=== PATIENT | male | born 1960 | race Caucasian/White ===

== ENCOUNTER 2021-09-26 15:26 | Inpatient (IN) | payer BC, OTHER ==
[~2021-09-26] VITALS: Ht 178 cm; Wt 89.3 kg
[2021-09-26] MEDS ORDERED: Neutra Phos packet PO PRN (16:50)
[2021-09-26] MEDS ORDERED: LIDOcaine 2% 10ml TOPICAL JELLY (Urojet) TP ONE (16:50)
[2021-09-26] MEDS ORDERED: sodium phosphate inj. 15 MMOL in dextrose 5%-water 250 ML IV PRN (16:50)
[2021-09-26] MEDS ORDERED: magnesium Cl slow-release 64mg tablet PO PRN (16:50)
[2021-09-26] MEDS ORDERED: acetaminophen 325mg tablet PO PRN (16:50)
[2021-09-26] MEDS ORDERED: magnesium hydroxide 30ml (MOM) UD suspension PO PRN (16:50)
[2021-09-26] MEDS ORDERED: magnesium 2GM in 50ml NS 50 ML IV PRN (16:50)
[2021-09-26] MEDS ORDERED: sodium phosphate inj. 30 MMOL in dextrose 5%-water 250 ML IV PRN (16:50)
[2021-09-26] MEDS ORDERED: potassium Cl 20 mEq SR tablet PO PRN ×2 (16:50)
[2021-09-26] MEDS ORDERED: FENTANYL-0.9 % NACL/PF 100 ML IV PRN (16:50)
[2021-09-26] MEDS ORDERED: magnesium 4gm in 100ml NS 100 ML IV PRN (16:50)
[2021-09-26] MEDS ORDERED: ipratropium/albuterol 3ml nebule NEB PRN (16:50)
[2021-09-26] MEDS: K, MAG and/or Phos replacement - Verify level? MC SCH (16:50)
[2021-09-26] MEDS ORDERED: ondansetron/PF 4mg/2ml inj IV PRN (16:50)
[2021-09-26 17:07] LABS: ABG BASE EXCESS 0.8 mmol/L (-2.0-2.0); ABG HCO3 25.4 mmol/L (22.0-26.0); ABG OXYGEN SATURATION 96.9 % (94-97); ABG PCO2 (T) 38.6 mmHg (35.0-48.0); ABG PO2 (T) 89.5 mmHg (75.0-100.0); ALLEN'S TEST POSITIVE; FCOHb 0.4 % (0.0-3.9); FMetHb 0.2 % (0.0-1.5); FO2Hb 96.3 % (94-97); PATIENT TEMPERATURE 35.9; PEEP 12 cm H2O; RESPIRATORY RATE 20 b/min; TIDAL VOLUME 548 mL
[2021-09-26] MEDS ORDERED: albuterol 60 PUFF/8GM Inhaler IH PRN (17:30)
[2021-09-26 19:00] VITALS: BP 98/56
[2021-09-26] MEDS ORDERED: SIMV80TA89 PO (19:07)
[2021-09-26] MEDS: normal saline 1000ml 1,000 ML IV SCH (19:10)
[2021-09-26] MEDS: enoxaparin 40mg/0.4ml syringe SUBCUT SCH (19:25)
[2021-09-26 20:00] VITALS: BP_SYST 112; BP_SYST 90; BP_DIAS 61; BP_DIAS 78
[2021-09-26] MEDS ORDERED: docusate sod 100mg capsule PO SCH (20:00)
[2021-09-26] MEDS ORDERED: dexamethasone 4mg/ml inj IV SCH (20:00)
[2021-09-26] MEDS: FENTANYL-0.9 % NACL/PF 100 ML IV PRN (20:46)
[2021-09-26 21:00] VITALS: BP 125/65
[2021-09-26 22:00] VITALS: BP 132/85
[2021-09-26] MEDS: dexamethasone inj 4 MG in normal saline 50ml IV soln 50 ML IV SCH (22:54)
[2021-09-26 23:00] VITALS: BP 136/78
[2021-09-27] VITALS (24 sets, daily range): BP systolic 106–122; BP diastolic 64–84
[2021-09-27] MEDS: piperacillin/tazo 3.375gm/50ml 50 ML IV SCH ×3 (00:04→16:38)
[2021-09-27] MEDS: FENTANYL-0.9 % NACL/PF 100 ML IV PRN ×4 (02:21→23:24)
[2021-09-27] MEDS: dexamethasone inj 4 MG in normal saline 50ml IV soln 50 ML IV SCH ×3 (02:22→15:07)
[2021-09-27 02:43] LABS: ABG BASE EXCESS 0.9 mmol/L (-2.0-2.0); ABG HCO3 26.9 mmol/L (22.0-26.0); ABG OXYGEN SATURATION 92.4 % (94-97); ABG PCO2 (T) 46.6 mmHg (35.0-48.0); ABG PO2 (T) 67.6 mmHg (75.0-100.0); ALLEN'S TEST POSITIVE; FCOHb 0.2 % (0.0-3.9); FMetHb 0.3 % (0.0-1.5); FO2Hb 91.9 % (94-97); PATIENT TEMPERATURE 36.2; PEEP 12 cm H2O; RESPIRATORY RATE 20 b/min; TOTAL HEMOGLOBIN 14.6 G/dl (14.0-18.0)
[2021-09-27] MEDS: normal saline 1000ml 1,000 ML IV SCH ×2 (03:10→12:50)
[2021-09-27] MEDS ORDERED: vancomycin/NS 1 GM ADD-VANTAGE 250 ML IV ONE (05:15)
--- NOTE | 2021-09-27 06:09 | NUR ---
Report given to Jacquie/SHAHBAZ
[2021-09-27 06:26] LABS: BASOPHILS % (AUTO) 0.1 % (0-1); EOSINOPHILS % (AUTO) 0 % (0-6); HEMOGLOBIN 13.7 g/dl (14.0-17.9); LYMPHOCYTES # (AUTO) 0.2 X10'3 (1.1-4.8); LYMPHOCYTES % (AUTO) 1.6 % (21-51); MEAN CORPUSCULAR HEMOGLOBIN 31.9 PG (27.0-31.0); MEAN CORPUSCULAR HGB CONC 34.2 g/dL (33.0-36.5); MEAN CORPUSCULAR VOLUME 93.2 FL (78-98); MEAN PLATELET VOLUME 7.1 FL (7.4-10.4); MONOCYTES # (AUTO) 0.4 X10'3 (0-0.9); MONOCYTES % (AUTO) 2.9 % (2-12); NEUTROPHILS # (AUTO) 14.7 X10'3 (1.8-7.7); NEUTROPHILS % (AUTO) 95.4 % (42-75); PLATELET COUNT 436 X10'3 (140-440); RED BLOOD COUNT 4.29 X10'6 (4.70-6.10); RED CELL DISTRIBUTION WIDTH 13.1 % (11.5-14.5); WHITE BLOOD COUNT 15.4 X10'3 (4.5-11.0)
[2021-09-27 06:39] LABS: PARTIAL THROMBOPLASTIN TIME 23 SECONDS (22-32)
[2021-09-27 07:11] LABS: ALANINE AMINOTRANSFERASE 145 U/L (12-78); ALBUMIN 2.2 G/DL (3.4-5.0); ALBUMIN/GLOBULIN RATIO 0.5 (1.1-1.5); ALKALINE PHOSPHATASE 108 IU/L (46-116); ANION GAP 9 (8-16); ASPARTATE AMINO TRANSFERASE 41 U/L (10-37); BILIRUBIN,TOTAL 0.7 MG/DL (0.1-1.0); BLOOD UREA NITROGEN 34 MG/DL (7-18); BUN/CREATININE RATIO 29.6 (5.4-32.0); CALCIUM 8.6 MG/DL (8.5-10.1); CHLORIDE 105 MMOL/L (99-107); CREATININE 1.15 MG/DL (0.60-1.10); GLUCOSE 116 MG/DL (70-104); MAGNESIUM 2.6 MG/DL (1.5-2.4); PHOSPHORUS 6.6 MG/DL (2.3-4.5); POTASSIUM 4.9 MMOL/L (3.5-5.1); SODIUM 140 MMOL/L (135-145); TOTAL CARBON DIOXIDE 26.1 MMOL/L (24-32); TOTAL PROTEIN 6.3 G/DL (6.4-8.2); eGFR 64 ML/MIN
[2021-09-27] MEDS ORDERED: docusate sodium 100mg/10ml UD cup PO SCH (07:37)
[2021-09-27] MEDS ORDERED: REMDESIVIR INJ 100 MG in normal saline 100ml IV soln 80 ML IV SCH (08:00)
[2021-09-27] MEDS: K, MAG and/or Phos replacement - Verify level? MC SCH (08:00)
[2021-09-27] MEDS: midazolam 100mg in NS 100ml 100 ML IV PRN (08:20)
[2021-09-27] MEDS: enoxaparin 40mg/0.4ml syringe SUBCUT SCH ×2 (08:23→19:46)
[2021-09-27] MEDS: pantoprazole 40 MG vial IV SCH (08:24)
--- NOTE | 2021-09-27 12:02 | NUR ---
TF consult: Pt intubated transferred for higher level of care for Covid pneumonia, ARDS and respiratory failure per H&P. Currently documented with a right NG Duval Sump in place, see TF recommendations below. Noted pt with a low Kendall of 10, no edema or wounds per physical assessment. No documented LBM, pt receiving routine bowel care. Will continue to follow closely. Recommendations: 1) Continuous TF via NGT using Vital AF with goal rate of 85 mL/hr to provide 2040 mL total volume/day, 2448 kcal, 153 g protein, and 1654 mL water 2) Additional 150 mL water flush Q4H; monitor serum Na and adjust as appropriate 3) Prealbumin q Friday/ 4) Daily scaled weights 5) Routine bowel care Addendum: 09/27/21 at [address] Amended: Links added.
[2021-09-27] MEDS ORDERED: albumin (Human) 5% 250ml 250 ML IV ONE (12:45)
[2021-09-27 13:32] LABS: PREALBUMIN 31.3 MG/DL (19-36)
[2021-09-27] MEDS ORDERED: magnesium hydroxide 30ml (MOM) UD suspension NG PRN (13:54)
[2021-09-27] MEDS ORDERED: POTASSIUM BICARB 20meq eff tab 20 MEQ TABLET.EFF NG PRN ×2 (13:55)
[2021-09-27] MEDS: lactobacillus rhamnosus 10,000 MMU CELLS/CAPSULE PO SCH (19:45)
[2021-09-27] MEDS: docusate sodium 100mg/10ml UD cup NG SCH (19:47)
[2021-09-27] MEDS ORDERED: fentaNYL 50mcg/ml PF inj. 2,500 MCG in normal saline 250ml IV soln 200 ML EPI PRN (23:40)
[2021-09-28] VITALS (23 sets, daily range): BP systolic 114–141; BP diastolic 63–80
[2021-09-28] MEDS: piperacillin/tazo 3.375gm/50ml 50 ML IV SCH ×3 (00:07→16:28)
[2021-09-28] MEDS: methylPREDNISolone sod succ 125mg/2ml vial IV SCH ×4 (00:07→18:57)
[2021-09-28 02:52] LABS: BASOPHILS % (AUTO) 0.4 % (0-1); EOSINOPHILS % (AUTO) 0 % (0-6); HEMATOCRIT 33.8 % (42.0-52.0); HEMOGLOBIN 11.3 g/dl (14.0-17.9); LYMPHOCYTES # (AUTO) 0.2 X10'3 (1.1-4.8); LYMPHOCYTES % (AUTO) 1.6 % (21-51); MEAN CORPUSCULAR HEMOGLOBIN 31.6 PG (27.0-31.0); MEAN CORPUSCULAR HGB CONC 33.5 g/dL (33.0-36.5); MEAN CORPUSCULAR VOLUME 94.2 FL (78-98); MEAN PLATELET VOLUME 7.1 FL (7.4-10.4); MONOCYTES # (AUTO) 0.4 X10'3 (0-0.9); MONOCYTES % (AUTO) 3.1 % (2-12); NEUTROPHILS # (AUTO) 12.3 X10'3 (1.8-7.7); NEUTROPHILS % (AUTO) 94.9 % (42-75); PLATELET COUNT 371 X10'3 (140-440); RED BLOOD COUNT 3.59 X10'6 (4.70-6.10); RED CELL DISTRIBUTION WIDTH 12.8 % (11.5-14.5)
[2021-09-28 03:06] LABS: ALANINE AMINOTRANSFERASE 90 U/L (12-78); ALBUMIN 2.4 G/DL (3.4-5.0); ALBUMIN/GLOBULIN RATIO 0.7 (1.1-1.5); ALKALINE PHOSPHATASE 77 IU/L (46-116); ANION GAP 2 (8-16); ASPARTATE AMINO TRANSFERASE 22 U/L (10-37); BILIRUBIN,TOTAL 0.6 MG/DL (0.1-1.0); BLOOD UREA NITROGEN 33 MG/DL (7-18); BUN/CREATININE RATIO 30.6 (5.4-32.0); C-REACTIVE PROTEIN 1.98 MG/DL (0.0-0.5); CALCIUM 8.1 MG/DL (8.5-10.1); CHLORIDE 106 MMOL/L (99-107); CREATININE 1.08 MG/DL (0.60-1.10); GLUCOSE 149 MG/DL (70-104); LACTATE DEHYDROGENASE 300 U/L (85-227); MAGNESIUM 2.6 MG/DL (1.5-2.4); SODIUM 139 MMOL/L (135-145); TOTAL CARBON DIOXIDE 30.7 MMOL/L (24-32); TOTAL PROTEIN 5.8 G/DL (6.4-8.2); eGFR 69 ML/MIN
[2021-09-28 03:14] LABS: PARTIAL THROMBOPLASTIN TIME 22 SECONDS (22-32)
[2021-09-28 04:22] LABS: ABG BASE EXCESS 0.1 mmol/L (-2.0-2.0); ABG HCO3 27.3 mmol/L (22.0-26.0); ABG OXYGEN SATURATION 92.2 % (94-97); ABG PCO2 (T) 55.1 mmHg (35.0-48.0); ABG PO2 (T) 68.9 mmHg (75.0-100.0); ALLEN'S TEST POSITIVE; FCOHb 0.3 % (0.0-3.9); FMetHb 0.3 % (0.0-1.5); FO2Hb 91.6 % (94-97); PATIENT TEMPERATURE 36.5; PEEP 12 cm H2O; RESPIRATORY RATE 20 b/min; TOTAL HEMOGLOBIN 12.3 G/dl (14.0-18.0)
[2021-09-28] MEDS: fentaNYL/PF inj 2,500 MCG in normal saline 250ml IV soln 200 ML IV PRN ×3 (04:31→23:45)
[2021-09-28] MEDS: midazolam 100mg in NS 100ml 100 ML IV PRN ×4 (04:33→23:48)
[2021-09-28] MEDS: pantoprazole 40 MG vial IV SCH (07:46)
[2021-09-28] MEDS: lactobacillus rhamnosus 10,000 MMU CELLS/CAPSULE PO SCH ×2 (07:46→18:57)
[2021-09-28] MEDS: enoxaparin 30mg/0.3ml syringe SUBCUT SCH ×2 (07:47→18:57)
[2021-09-28] MEDS: enoxaparin 60mg/0.6ml syringe SUBCUT SCH ×2 (07:48→18:57)
[2021-09-28] MEDS: docusate sodium 100mg/10ml UD cup NG SCH ×2 (08:00→18:57)
[2021-09-28] MEDS: K, MAG and/or Phos replacement - Verify level? MC SCH (08:00)
[2021-09-28] MEDS: FENTANYL-0.9 % NACL/PF 100 ML IV PRN (14:20)
[2021-09-29] VITALS (23 sets, daily range): BP systolic 102–145; BP diastolic 52–81
[2021-09-29 02:29] LABS: BASOPHILS # (AUTO) 0.1 X10'3 (0-0.2); BASOPHILS % (AUTO) 0.7 % (0-1); EOSINOPHILS % (AUTO) 0 % (0-6); HEMATOCRIT 34.2 % (42.0-52.0); HEMOGLOBIN 11.5 g/dl (14.0-17.9); LYMPHOCYTES # (AUTO) 0.1 X10'3 (1.1-4.8); LYMPHOCYTES % (AUTO) 1.1 % (21-51); MEAN CORPUSCULAR HEMOGLOBIN 31.2 PG (27.0-31.0); MEAN CORPUSCULAR HGB CONC 33.7 g/dL (33.0-36.5); MEAN CORPUSCULAR VOLUME 92.7 FL (78-98); MEAN PLATELET VOLUME 6.8 FL (7.4-10.4); MONOCYTES # (AUTO) 0.3 X10'3 (0-0.9); MONOCYTES % (AUTO) 2.5 % (2-12); NEUTROPHILS # (AUTO) 12.8 X10'3 (1.8-7.7); NEUTROPHILS % (AUTO) 95.7 % (42-75); PLATELET COUNT 349 X10'3 (140-440); RED BLOOD COUNT 3.69 X10'6 (4.70-6.10); RED CELL DISTRIBUTION WIDTH 13.2 % (11.5-14.5); WHITE BLOOD COUNT 13.4 X10'3 (4.5-11.0)
[2021-09-29 02:58] LABS: ALANINE AMINOTRANSFERASE 90 U/L (12-78); ALBUMIN 2.4 G/DL (3.4-5.0); ALBUMIN/GLOBULIN RATIO 0.7 (1.1-1.5); ALKALINE PHOSPHATASE 70 IU/L (46-116); ANION GAP 1 (8-16); ASPARTATE AMINO TRANSFERASE 28 U/L (10-37); BILIRUBIN,TOTAL 0.7 MG/DL (0.1-1.0); BLOOD UREA NITROGEN 34 MG/DL (7-18); BUN/CREATININE RATIO 33.7 (5.4-32.0); CALCIUM 8.4 MG/DL (8.5-10.1); CHLORIDE 105 MMOL/L (99-107); CREATININE 1.01 MG/DL (0.60-1.10); GLUCOSE 127 MG/DL (70-104); MAGNESIUM 2.5 MG/DL (1.5-2.4); PHOSPHORUS 4.2 MG/DL (2.3-4.5); POTASSIUM 5.1 MMOL/L (3.5-5.1); SODIUM 139 MMOL/L (135-145); TOTAL CARBON DIOXIDE 32.8 MMOL/L (24-32); TOTAL PROTEIN 5.8 G/DL (6.4-8.2); eGFR 75 ML/MIN
[2021-09-29 03:00] LABS: PARTIAL THROMBOPLASTIN TIME 25 SECONDS (22-32)
--- NOTE | 2021-09-29 04:00 | NUR ---
patient supine at 0400, [facility] 35 degree, patient tolerated prone position well throughout the shift
[2021-09-29 04:07] LABS: ABG BASE EXCESS 1.2 mmol/L (-2.0-2.0); ABG HCO3 28.2 mmol/L (22.0-26.0); ABG OXYGEN SATURATION 94.1 % (94-97); ABG PCO2 (T) 54.5 mmHg (35.0-48.0); ABG PO2 (T) 74.4 mmHg (75.0-100.0); ALLEN'S TEST POSITIVE; FCOHb 0.2 % (0.0-3.9); FMetHb 0.1 % (0.0-1.5); FO2Hb 93.8 % (94-97); PATIENT TEMPERATURE 36.5; PEEP 12 cm H2O; RESPIRATORY RATE 22 b/min; TOTAL HEMOGLOBIN 12.7 G/dl (14.0-18.0)
[2021-09-29 05:00] LABS: HYPERSEGMENTED NEUTROPHILS 2+; TOTAL CELLS COUNTED 100
[2021-09-29 05:01] LABS: ANISOCYTOSIS FEW; PLATELET ESTIMATE NORMAL
--- NOTE | 2021-09-29 06:05 | NUR ---
Report given to Juliane/SHAHBAZ Feeding resumed at 0400
--- NOTE | 2021-09-29 06:30 | NUR ---
Received report from SHAHBAZ Hernandez
[2021-09-29] MEDS: docusate sodium 100mg/10ml UD cup NG SCH ×2 (08:00→20:00)
[2021-09-29] MEDS: K, MAG and/or Phos replacement - Verify level? MC SCH (08:00)
[2021-09-29] MEDS: lactobacillus rhamnosus 10,000 MMU CELLS/CAPSULE PO SCH ×2 (11:32→20:00)
[2021-09-29] MEDS: enoxaparin 30mg/0.3ml syringe SUBCUT SCH ×2 (11:32→20:00)
[2021-09-29] MEDS: enoxaparin 60mg/0.6ml syringe SUBCUT SCH ×2 (11:32→20:00)
[2021-09-29] MEDS: methylPREDNISolone sod succ 125mg/2ml vial IV SCH ×2 (11:33→17:20)
[2021-09-29] MEDS: pantoprazole 40 MG vial IV SCH (11:33)
[2021-09-29] MEDS: fentaNYL/PF inj 2,500 MCG in normal saline 250ml IV soln 200 ML IV PRN (14:32)
[2021-09-29] MEDS: midazolam 100mg in NS 100ml 100 ML IV PRN ×3 (14:32→22:21)
--- NOTE | 2021-09-29 18:31 | NUR ---
Report given to SHAHBAZ Torres
--- NOTE | 2021-09-29 19:40 | NUR ---
pt placed in prone position, tolerated well.
[2021-09-30] VITALS (23 sets, daily range): BP systolic 115–146; BP diastolic 57–84
[2021-09-30 03:00] LABS: BASOPHILS % (AUTO) 0.4 % (0-1); EOSINOPHILS # (AUTO) 0.1 X10'3 (0-0.9); EOSINOPHILS % (AUTO) 0.8 % (0-6); HEMATOCRIT 39.6 % (42.0-52.0); HEMOGLOBIN 13.3 g/dl (14.0-17.9); LYMPHOCYTES # (AUTO) 0.2 X10'3 (1.1-4.8); LYMPHOCYTES % (AUTO) 2.3 % (21-51); MEAN CORPUSCULAR HEMOGLOBIN 31.5 PG (27.0-31.0); MEAN CORPUSCULAR HGB CONC 33.6 g/dL (33.0-36.5); MEAN CORPUSCULAR VOLUME 93.7 FL (78-98); MEAN PLATELET VOLUME 7.2 FL (7.4-10.4); MONOCYTES # (AUTO) 0.2 X10'3 (0-0.9); MONOCYTES % (AUTO) 2.9 % (2-12); NEUTROPHILS # (AUTO) 6.5 X10'3 (1.8-7.7); NEUTROPHILS % (AUTO) 93.6 % (42-75); PLATELET COUNT 211 X10'3 (140-440); RED BLOOD COUNT 4.23 X10'6 (4.70-6.10)
[2021-09-30] MEDS: midazolam 100mg in NS 100ml 100 ML IV PRN ×4 (03:26→23:32)
[2021-09-30 03:38] LABS: ABG BASE EXCESS 6.4 mmol/L (-2.0-2.0); ABG HCO3 31.6 mmol/L (22.0-26.0); ABG OXYGEN SATURATION 92.3 % (94-97); ABG PCO2 (T) 47.7 mmHg (35.0-48.0); ALLEN'S TEST POSITIVE; FMetHb 0.1 % (0.0-1.5); FO2Hb 92.2 % (94-97); PATIENT TEMPERATURE 36.9; PEEP 12 cm H2O; RESPIRATORY RATE 22 b/min; TOTAL HEMOGLOBIN 12.3 G/dl (14.0-18.0)
[2021-09-30 04:22] LABS: PARTIAL THROMBOPLASTIN TIME 26 SECONDS (22-32)
[2021-09-30 04:27] LABS: ALANINE AMINOTRANSFERASE 68 U/L (12-78); ALBUMIN/GLOBULIN RATIO 0.6 (1.1-1.5); ALKALINE PHOSPHATASE 68 IU/L (46-116); ANION GAP 4 (8-16); ASPARTATE AMINO TRANSFERASE 26 U/L (10-37); BILIRUBIN,TOTAL 0.8 MG/DL (0.1-1.0); BLOOD UREA NITROGEN 34 MG/DL (7-18); BUN/CREATININE RATIO 39.1 (5.4-32.0); CALCIUM 8.1 MG/DL (8.5-10.1); CHLORIDE 106 MMOL/L (99-107); CREATININE 0.87 MG/DL (0.60-1.10); GLUCOSE 104 MG/DL (70-104); MAGNESIUM 2.3 MG/DL (1.5-2.4); PHOSPHORUS 3.4 MG/DL (2.3-4.5); POTASSIUM 4.9 MMOL/L (3.5-5.1); SODIUM 140 MMOL/L (135-145); TOTAL CARBON DIOXIDE 29.9 MMOL/L (24-32); TOTAL PROTEIN 5.4 G/DL (6.4-8.2); eGFR 89 ML/MIN
--- NOTE | 2021-09-30 06:18 | NUR ---
Continue in prone position, tolerating well.
[2021-09-30 06:58] LABS: D-DIMER 2.27 MG/L FEU (0-0.50)
[2021-09-30 07:05] LABS: C-REACTIVE PROTEIN 0.08 MG/DL (0.0-0.5); LACTATE DEHYDROGENASE 256 U/L (85-227)
[2021-09-30] MEDS: enoxaparin 60mg/0.6ml syringe SUBCUT SCH ×2 (07:24→19:06)
[2021-09-30] MEDS: pantoprazole 40 MG vial IV SCH (07:24)
[2021-09-30] MEDS: methylPREDNISolone sod succ 125mg/2ml vial IV SCH ×3 (07:24→16:01)
[2021-09-30] MEDS: enoxaparin 30mg/0.3ml syringe SUBCUT SCH ×2 (07:25→19:06)
[2021-09-30] MEDS: lactobacillus rhamnosus 10,000 MMU CELLS/CAPSULE PO SCH ×2 (07:25→19:06)
[2021-09-30] MEDS: fentaNYL/PF inj 2,500 MCG in normal saline 250ml IV soln 200 ML IV PRN ×2 (07:25→16:02)
[2021-09-30] MEDS: docusate sodium 100mg/10ml UD cup NG SCH ×2 (08:00→19:06)
[2021-09-30] MEDS: K, MAG and/or Phos replacement - Verify level? MC SCH (08:00)
--- NOTE | 2021-09-30 08:30 | NUR ---
Reassessment: Pt remains intubated and sedated. TF currently on hold since about midnight possibly d/t pt proning as feeding tube only extends into stomach per MD note. TF was at goal prior to hold. Pt noted w/ small BMs 09/27-, receiving routine colace. No change to nutrition intervention at this time though recommend advancing feeding tube post-pyloric if MD agreeable. Will continue to monitor. Recommendations: 1) Continuous TF via NGT using Vital AF with goal rate of 85 mL/hr to provide 2040 mL total volume/day, 2448 kcal, 153 g protein, and 1654 mL water 2) Additional 150 mL water flush Q4H; monitor serum Na and adjust as appropriate 3) Prealbumin q Friday/ 4) Daily scaled weights 5) Routine bowel care Addendum: 09/30/21 at [address] Amended: Links added.
[2021-10-01] VITALS (24 sets, daily range): BP systolic 110–148; BP diastolic 62–78
[2021-10-01] MEDS: methylPREDNISolone sod succ 125mg/2ml vial IV SCH ×3 (00:18→16:55)
[2021-10-01 03:21] LABS: BASOPHILS % (AUTO) 0.1 % (0-1); EOSINOPHILS % (AUTO) 0 % (0-6); HEMATOCRIT 33.7 % (42.0-52.0); HEMOGLOBIN 11.6 g/dl (14.0-17.9); LYMPHOCYTES # (AUTO) 0.2 X10'3 (1.1-4.8); MEAN CORPUSCULAR HEMOGLOBIN 32.2 PG (27.0-31.0); MEAN CORPUSCULAR HGB CONC 34.3 g/dL (33.0-36.5); MEAN CORPUSCULAR VOLUME 93.9 FL (78-98); MEAN PLATELET VOLUME 7.3 FL (7.4-10.4); MONOCYTES # (AUTO) 0.4 X10'3 (0-0.9); MONOCYTES % (AUTO) 4.1 % (2-12); NEUTROPHILS # (AUTO) 9.1 X10'3 (1.8-7.7); NEUTROPHILS % (AUTO) 93.8 % (42-75); PLATELET COUNT 286 X10'3 (140-440); RED BLOOD COUNT 3.59 X10'6 (4.70-6.10); RED CELL DISTRIBUTION WIDTH 13.3 % (11.5-14.5); WHITE BLOOD COUNT 9.7 X10'3 (4.5-11.0)
[2021-10-01 03:28] LABS: PARTIAL THROMBOPLASTIN TIME 26 SECONDS (22-32)
[2021-10-01 03:42] LABS: ALANINE AMINOTRANSFERASE 60 U/L (12-78); ALBUMIN/GLOBULIN RATIO 0.6 (1.1-1.5); ALKALINE PHOSPHATASE 67 IU/L (46-116); ANION GAP 6 (8-16); ASPARTATE AMINO TRANSFERASE 23 U/L (10-37); BILIRUBIN,TOTAL 0.6 MG/DL (0.1-1.0); BLOOD UREA NITROGEN 33 MG/DL (7-18); BUN/CREATININE RATIO 36.7 (5.4-32.0); CALCIUM 7.9 MG/DL (8.5-10.1); CHLORIDE 105 MMOL/L (99-107); GLUCOSE 147 MG/DL (70-104); MAGNESIUM 2.4 MG/DL (1.5-2.4); PHOSPHORUS 3.9 MG/DL (2.3-4.5); POTASSIUM 4.6 MMOL/L (3.5-5.1); PREALBUMIN 23.9 MG/DL (19-36); SODIUM 141 MMOL/L (135-145); TOTAL CARBON DIOXIDE 30.1 MMOL/L (24-32); TOTAL PROTEIN 5.2 G/DL (6.4-8.2); eGFR 85 ML/MIN
[2021-10-01 04:26] LABS: ABG BASE EXCESS 1.2 mmol/L (-2.0-2.0); ABG HCO3 25.7 mmol/L (22.0-26.0); ABG OXYGEN SATURATION 93.2 % (94-97); ABG PCO2 (T) 40.3 mmHg (35.0-48.0); ABG PO2 (T) 69.8 mmHg (75.0-100.0); ALLEN'S TEST POSITIVE; FMetHb 0.1 % (0.0-1.5); FO2Hb 93.1 % (94-97); PATIENT TEMPERATURE 36.8; PEEP 12 cm H2O; RESPIRATORY RATE 22 b/min; TOTAL HEMOGLOBIN 12.1 G/dl (14.0-18.0)
[2021-10-01] MEDS: K, MAG and/or Phos replacement - Verify level? MC SCH (08:00)
[2021-10-01] MEDS: lactobacillus rhamnosus 10,000 MMU CELLS/CAPSULE PO SCH ×2 (08:44→20:00)
[2021-10-01] MEDS: docusate sodium 100mg/10ml UD cup NG SCH ×2 (08:45→21:32)
[2021-10-01] MEDS: enoxaparin 30mg/0.3ml syringe SUBCUT SCH ×2 (08:45→21:32)
[2021-10-01] MEDS: midazolam 100mg in NS 100ml 100 ML IV PRN ×2 (08:45→16:56)
[2021-10-01] MEDS: pantoprazole 40 MG vial IV SCH (08:45)
[2021-10-01] MEDS: enoxaparin 60mg/0.6ml syringe SUBCUT SCH ×2 (08:46→20:00)
[2021-10-01] MEDS: fentaNYL/PF inj 2,500 MCG in normal saline 250ml IV soln 200 ML IV PRN (15:03)
--- NOTE | 2021-10-01 18:23 | NUR ---
Report given to SHAHBAZ Torres
[2021-10-02] VITALS (24 sets, daily range): BP systolic 115–167; BP diastolic 61–100
[2021-10-02] MEDS: midazolam 100mg in NS 100ml 100 ML IV PRN ×3 (01:50→22:56)
[2021-10-02] MEDS: fentaNYL/PF inj 2,500 MCG in normal saline 250ml IV soln 200 ML IV PRN (02:43)
[2021-10-02 02:54] LABS: BASOPHILS % (AUTO) 0.2 % (0-1); EOSINOPHILS % (AUTO) 0.1 % (0-6); HEMATOCRIT 33.8 % (42.0-52.0); HEMOGLOBIN 11.3 g/dl (14.0-17.9); LYMPHOCYTES # (AUTO) 0.3 X10'3 (1.1-4.8); LYMPHOCYTES % (AUTO) 2.1 % (21-51); MEAN CORPUSCULAR HEMOGLOBIN 31.4 PG (27.0-31.0); MEAN CORPUSCULAR HGB CONC 33.5 g/dL (33.0-36.5); MEAN CORPUSCULAR VOLUME 93.9 FL (78-98); MEAN PLATELET VOLUME 7.3 FL (7.4-10.4); MONOCYTES # (AUTO) 0.4 X10'3 (0-0.9); MONOCYTES % (AUTO) 3.5 % (2-12); NEUTROPHILS # (AUTO) 11.6 X10'3 (1.8-7.7); NEUTROPHILS % (AUTO) 94.1 % (42-75); PLATELET COUNT 246 X10'3 (140-440); WHITE BLOOD COUNT 12.3 X10'3 (4.5-11.0)
[2021-10-02 03:06] LABS: ALANINE AMINOTRANSFERASE 53 U/L (12-78); ALBUMIN 1.8 G/DL (3.4-5.0); ALBUMIN/GLOBULIN RATIO 0.5 (1.1-1.5); ALKALINE PHOSPHATASE 68 IU/L (46-116); ANION GAP 6 (8-16); ASPARTATE AMINO TRANSFERASE 21 U/L (10-37); BILIRUBIN,TOTAL 0.5 MG/DL (0.1-1.0); BLOOD UREA NITROGEN 35 MG/DL (7-18); BUN/CREATININE RATIO 36.5 (5.4-32.0); CALCIUM 7.7 MG/DL (8.5-10.1); CHLORIDE 106 MMOL/L (99-107); CREATININE 0.96 MG/DL (0.60-1.10); GLUCOSE 154 MG/DL (70-104); MAGNESIUM 2.2 MG/DL (1.5-2.4); PARTIAL THROMBOPLASTIN TIME 26 SECONDS (22-32); PHOSPHORUS 3.7 MG/DL (2.3-4.5); POTASSIUM 4.8 MMOL/L (3.5-5.1); SODIUM 140 MMOL/L (135-145); TOTAL CARBON DIOXIDE 28.1 MMOL/L (24-32); TOTAL PROTEIN 5.1 G/DL (6.4-8.2); eGFR 79 ML/MIN
[2021-10-02 03:40] LABS: TOTAL CELLS COUNTED 100
[2021-10-02 03:41] LABS: PLATELET ESTIMATE NORMAL
[2021-10-02 03:49] LABS: ABG BASE EXCESS 0.5 mmol/L (-2.0-2.0); ABG HCO3 25.4 mmol/L (22.0-26.0); ABG OXYGEN SATURATION 92.6 % (94-97); ABG PCO2 (T) 40.8 mmHg (35.0-48.0); ABG PO2 (T) 63.7 mmHg (75.0-100.0); ALLEN'S TEST POSITIVE; FCOHb 0.3 % (0.0-3.9); FMetHb 0.2 % (0.0-1.5); FO2Hb 92.1 % (94-97); PATIENT TEMPERATURE 36.4; PEEP 12 cm H2O; RESPIRATORY RATE 22 b/min; TOTAL HEMOGLOBIN 12.2 G/dl (14.0-18.0)
--- NOTE | 2021-10-02 06:00 | NUR ---
Patient in room CICU 2010. I have received report from NINO HARTMANN and had the opportunity to ask questions and assume patient care.
[2021-10-02] MEDS: K, MAG and/or Phos replacement - Verify level? MC SCH (08:00)
[2021-10-02] MEDS: lactobacillus rhamnosus 10,000 MMU CELLS/CAPSULE PO SCH ×2 (08:01→19:53)
[2021-10-02] MEDS: methylPREDNISolone sod succ/PF 40mg inj. IV SCH ×3 (08:01→16:44)
[2021-10-02] MEDS: atorvastatin 20mg tablet PO SCH (08:02)
[2021-10-02] MEDS: lansoprazole 15mg solutab PO SCH (08:02)
[2021-10-02] MEDS: enoxaparin 60mg/0.6ml syringe SUBCUT SCH ×2 (08:02→19:54)
[2021-10-02] MEDS: enoxaparin 30mg/0.3ml syringe SUBCUT SCH ×2 (08:03→19:54)
--- NOTE | 2021-10-02 08:15 | NUR ---
SPOKE TO PTS AND GIVEN UPDATE. PT REMAINS STABLE, UNABLE TO WEAN FIO2 DUE TO PTS SATS 91-92%
[2021-10-02] MEDS: docusate sodium 100mg/10ml UD cup NG SCH ×2 (08:39→19:53)
[2021-10-02] MEDS ORDERED: acetaminophen 325mg tablet PO PRN (18:50)
[2021-10-02] MEDS: acetaminophen 325mg tablet NG PRN (19:53)
[2021-10-02] MEDS ORDERED: glucagon, human recombinant 1mg kit SUBCUT PRN (22:30)
[2021-10-02] MEDS ORDERED: MESSAGE TO PHARMACY PO ONE (22:30)
[2021-10-02] MEDS ORDERED: dextrose 50%-water 50ml dispensing syringe IV PRN ×2 (22:30)
[2021-10-02] MEDS ORDERED: dextrose ORAL solution 15 GM/59 ML bottle PO PRN ×2 (22:30)
[2021-10-02] MEDS: insulin regular, human U-100 3ml vial - multi-dose SQ SCH (22:42)
[2021-10-03] VITALS (23 sets, daily range): BP systolic 108–133; BP diastolic 57–79
[2021-10-03 00:06] LABS: HEMOGLOBIN A1C 7.2 % (4.5-6.2)
[2021-10-03] MEDS: insulin regular, human U-100 3ml vial - multi-dose SQ SCH ×4 (02:19→21:58)
[2021-10-03] MEDS: fentaNYL/PF inj 2,500 MCG in normal saline 250ml IV soln 200 ML IV PRN ×3 (03:10→21:41)
[2021-10-03 03:23] LABS: BASOPHILS % (AUTO) 0 % (0-1); EOSINOPHILS % (AUTO) 0.1 % (0-6); HEMATOCRIT 33.8 % (42.0-52.0); HEMOGLOBIN 11.5 g/dl (14.0-17.9); LYMPHOCYTES # (AUTO) 0.2 X10'3 (1.1-4.8); LYMPHOCYTES % (AUTO) 2.3 % (21-51); MEAN CORPUSCULAR HEMOGLOBIN 31.9 PG (27.0-31.0); MEAN CORPUSCULAR VOLUME 93.9 FL (78-98); MEAN PLATELET VOLUME 7.6 FL (7.4-10.4); MONOCYTES # (AUTO) 0.1 X10'3 (0-0.9); MONOCYTES % (AUTO) 1.4 % (2-12); NEUTROPHILS # (AUTO) 8.8 X10'3 (1.8-7.7); NEUTROPHILS % (AUTO) 96.2 % (42-75); PLATELET COUNT 191 X10'3 (140-440); RED CELL DISTRIBUTION WIDTH 13.3 % (11.5-14.5); WHITE BLOOD COUNT 9.2 X10'3 (4.5-11.0)
[2021-10-03 03:34] LABS: D-DIMER 2.45 MG/L FEU (0-0.50); PARTIAL THROMBOPLASTIN TIME 28 SECONDS (22-32)
[2021-10-03 03:40] LABS: ALANINE AMINOTRANSFERASE 55 U/L (12-78); ALBUMIN 1.7 G/DL (3.4-5.0); ALBUMIN/GLOBULIN RATIO 0.5 (1.1-1.5); ALKALINE PHOSPHATASE 64 IU/L (46-116); ANION GAP 5 (8-16); ASPARTATE AMINO TRANSFERASE 25 U/L (10-37); BILIRUBIN,TOTAL 0.7 MG/DL (0.1-1.0); BLOOD UREA NITROGEN 29 MG/DL (7-18); BUN/CREATININE RATIO 37.7 (5.4-32.0); C-REACTIVE PROTEIN 10.21 MG/DL (0.0-0.5); CHLORIDE 106 MMOL/L (99-107); CREATININE 0.77 MG/DL (0.60-1.10); GLUCOSE 176 MG/DL (70-104); MAGNESIUM 2.2 MG/DL (1.5-2.4); PHOSPHORUS 2.4 MG/DL (2.3-4.5); POTASSIUM 4.8 MMOL/L (3.5-5.1); SODIUM 141 MMOL/L (135-145); TOTAL CARBON DIOXIDE 29.6 MMOL/L (24-32); eGFR > 90 ML/MIN
[2021-10-03 04:07] LABS: ABG BASE EXCESS 0.7 mmol/L (-2.0-2.0); ABG HCO3 25.5 mmol/L (22.0-26.0); ABG OXYGEN SATURATION 90.9 % (94-97); ABG PCO2 (T) 42.1 mmHg (35.0-48.0); ABG PO2 (T) 62.2 mmHg (75.0-100.0); ALLEN'S TEST POSITIVE; FCOHb 0.2 % (0.0-3.9); FMetHb 0.1 % (0.0-1.5); FO2Hb 90.6 % (94-97); PATIENT TEMPERATURE 37.1; PEEP 12 cm H2O; RESPIRATORY RATE 22 b/min; TOTAL HEMOGLOBIN 12.4 G/dl (14.0-18.0)
[2021-10-03] MEDS: midazolam 100mg in NS 100ml 100 ML IV PRN ×2 (05:39→21:21)
--- NOTE | 2021-10-03 06:00 | NUR ---
Patient in room CICU 2010. I have received report from Melissa HARTMANN and had the opportunity to ask questions and assume patient care.
[2021-10-03] MEDS: docusate sodium 100mg/10ml UD cup NG SCH ×2 (07:40→20:00)
[2021-10-03] MEDS: methylPREDNISolone sod succ/PF 40mg inj. IV SCH ×3 (07:40→15:44)
[2021-10-03] MEDS: lactobacillus rhamnosus 10,000 MMU CELLS/CAPSULE PO SCH ×2 (07:40→21:06)
[2021-10-03] MEDS: enoxaparin 30mg/0.3ml syringe SUBCUT SCH ×2 (07:41→21:05)
[2021-10-03] MEDS: enoxaparin 60mg/0.6ml syringe SUBCUT SCH ×2 (07:41→21:06)
[2021-10-03] MEDS: lansoprazole 15mg solutab PO SCH (07:41)
[2021-10-03] MEDS: atorvastatin 20mg tablet PO SCH (07:41)
[2021-10-03] MEDS: K, MAG and/or Phos replacement - Verify level? MC SCH (08:00)
--- NOTE | 2021-10-03 12:01 | NUR ---
Reassessment: Pt remains intubated and tolerated TF at goal rate with GRV WNL. LBM 09/25, receiving routine bowel care with PRN bowel care available however not documented to be given. Pt would benefit from additional bowel care for bowel regularity, will d/w . No changes to nutrition interventions at this time. Will continue to follow. Recommendations: 1) Continuous TF via NGT using Vital AF with goal rate of 85 mL/hr to provide 2040 mL total volume/day, 2448 kcal, 153 g protein, and 1654 mL water 2) Additional 150 mL water flush Q4H; monitor serum Na and adjust as appropriate 3) Prealbumin q Friday/ 4) Daily scaled weights 5) Routine bowel care; consider additional given no BM x 8 days Addendum: 10/03/21 at [address] Amended: Links added.
--- NOTE | 2021-10-03 12:19 | NUR ---
Malnutrition consult: Pt reports 2-13 lb wt loss with decreased appetite per malnutrition risk screen with RN. No wt hx in EMR and current weight fluctuates. Pt currently intubated and sedated and receiving TF for estimated nutrient needs. Pt currently does not meet criteria for malnutrition. Noted pt with A1c 7.2%, PMH unknown. Pt will need official DM dx by physician prior to RD being able to provide DM education once pt stable following extubation IF this is a new diagnosis. Will continue to follow. Addendum: 10/03/21 at [address] Amended: Links added.
--- NOTE | 2021-10-03 14:00 | NUR ---
pt positioned prone with 2 assists. Pt placed in swimmers position, with pillows under chest and hips, liao catheter and private area checked, pt washed and lotion applied. all bony prominences padded,currently right arm up head to the left
--- NOTE | 2021-10-03 16:20 | NUR ---
over 200 cc of residenual tube feeding, tube feeding had been off since 1400 when pt was proned. spoke to charge nurse, she states tube feeding is usually trickled in while prone. will wait an additional 2 hours to reassess before restarting tube feding.
--- NOTE | 2021-10-03 17:36 | NUR ---
pts position of arms and head changed, orally and nasally suctioned. oral care provided, oral cavity has a foul odor. Tube feeding remains off, will reassess with night nurse
--- NOTE | 2021-10-03 19:00 | NUR ---
Received in prone position. Placed in reverse trendelenburg with HOB elevated. Tube feeding resume @ 85 ml/hr, no residual .
[2021-10-04] VITALS (24 sets, daily range): BP systolic 106–142; BP diastolic 56–86
[2021-10-04] MEDS: methylPREDNISolone sod succ/PF 40mg inj. IV SCH ×4 (00:33→23:55)
[2021-10-04 03:11] LABS: BASOPHILS # (AUTO) 0.1 X10'3 (0-0.2); BASOPHILS % (AUTO) 0.7 % (0-1); EOSINOPHILS % (AUTO) 0.3 % (0-6); HEMATOCRIT 32.9 % (42.0-52.0); HEMOGLOBIN 11.2 g/dl (14.0-17.9); LYMPHOCYTES # (AUTO) 0.1 X10'3 (1.1-4.8); LYMPHOCYTES % (AUTO) 1.3 % (21-51); MEAN CORPUSCULAR HEMOGLOBIN 31.8 PG (27.0-31.0); MEAN CORPUSCULAR HGB CONC 34.1 g/dL (33.0-36.5); MEAN CORPUSCULAR VOLUME 93.2 FL (78-98); MEAN PLATELET VOLUME 7.4 FL (7.4-10.4); MONOCYTES # (AUTO) 0.2 X10'3 (0-0.9); NEUTROPHILS # (AUTO) 8.6 X10'3 (1.8-7.7); NEUTROPHILS % (AUTO) 95.7 % (42-75); PLATELET COUNT 168 X10'3 (140-440); RED BLOOD COUNT 3.53 X10'6 (4.70-6.10); RED CELL DISTRIBUTION WIDTH 13.6 % (11.5-14.5); WHITE BLOOD COUNT 8.9 X10'3 (4.5-11.0)
[2021-10-04] MEDS: insulin regular, human U-100 3ml vial - multi-dose SQ SCH ×4 (03:15→21:19)
[2021-10-04 03:23] LABS: PARTIAL THROMBOPLASTIN TIME 28 SECONDS (22-32)
[2021-10-04 03:24] LABS: ALANINE AMINOTRANSFERASE 44 U/L (12-78); ALBUMIN 1.6 G/DL (3.4-5.0); ALBUMIN/GLOBULIN RATIO 0.4 (1.1-1.5); ALKALINE PHOSPHATASE 69 IU/L (46-116); ANION GAP 2 (8-16); ASPARTATE AMINO TRANSFERASE 28 U/L (10-37); BILIRUBIN,TOTAL 0.6 MG/DL (0.1-1.0); BLOOD UREA NITROGEN 34 MG/DL (7-18); BUN/CREATININE RATIO 44.7 (5.4-32.0); CALCIUM 8.5 MG/DL (8.5-10.1); CHLORIDE 108 MMOL/L (99-107); CREATININE 0.76 MG/DL (0.60-1.10); GLUCOSE 152 MG/DL (70-104); MAGNESIUM 2.3 MG/DL (1.5-2.4); PHOSPHORUS 3.4 MG/DL (2.3-4.5); POTASSIUM 5.5 MMOL/L (3.5-5.1); PREALBUMIN 15.9 MG/DL (19-36); SODIUM 142 MMOL/L (135-145); TOTAL CARBON DIOXIDE 31.8 MMOL/L (24-32); TOTAL PROTEIN 5.8 G/DL (6.4-8.2); eGFR > 90 ML/MIN
--- NOTE | 2021-10-04 03:30 | NUR ---
Back in supine position with HOB elevated in semi-roldan's position. Tolerated proning position. Tube feeding continues @ 85 ml/hr.
[2021-10-04 04:16] LABS: ABG BASE EXCESS 2.7 mmol/L (-2.0-2.0); ABG HCO3 29.2 mmol/L (22.0-26.0); ABG OXYGEN SATURATION 93.1 % (94-97); ABG PCO2 (T) 52.7 mmHg (35.0-48.0); ABG PO2 (T) 66.4 mmHg (75.0-100.0); ALLEN'S TEST POSITIVE; FCOHb 0.3 % (0.0-3.9); FMetHb 0.3 % (0.0-1.5); FO2Hb 92.5 % (94-97); PATIENT TEMPERATURE 36.4; PEEP 12 cm H2O; RESPIRATORY RATE 22 b/min; TOTAL HEMOGLOBIN 11.6 G/dl (14.0-18.0)
[2021-10-04 04:18] LABS: PLATELET ESTIMATE NORMAL; TOTAL CELLS COUNTED 100
[2021-10-04] MEDS: midazolam 100mg in NS 100ml 100 ML IV PRN ×3 (05:31→22:06)
--- NOTE | 2021-10-04 06:00 | NUR ---
Patient in room CICU 2010. I have received report from Melissa HARTMANN and had the opportunity to ask questions and assume patient care.
[2021-10-04] MEDS: lactobacillus rhamnosus 10,000 MMU CELLS/CAPSULE PO SCH ×2 (07:52→20:55)
[2021-10-04] MEDS: lansoprazole 15mg solutab PO SCH (07:52)
[2021-10-04] MEDS: atorvastatin 20mg tablet PO SCH (07:52)
[2021-10-04] MEDS: docusate sodium 100mg/10ml UD cup NG SCH (07:53)
[2021-10-04] MEDS: enoxaparin 30mg/0.3ml syringe SUBCUT SCH ×2 (07:53→20:55)
[2021-10-04] MEDS: enoxaparin 60mg/0.6ml syringe SUBCUT SCH ×2 (07:53→20:55)
[2021-10-04] MEDS: K, MAG and/or Phos replacement - Verify level? MC SCH (08:00)
[2021-10-04] MEDS ORDERED: sennosides/docusate sodium tablet PO SCH (10:47)
--- NOTE | 2021-10-04 12:12 | NUR ---
Dr. Rodney rounding, no new orders received, He was happy with the progress of decreasing the Fio2
[2021-10-04] MEDS: fentaNYL/PF inj 2,500 MCG in normal saline 250ml IV soln 200 ML IV PRN ×2 (12:56→23:53)
--- NOTE | 2021-10-04 14:56 | NUR ---
F/u: PABLO 09/25 while receiving routine Colace, d/w MD at critical care rounds. Pt to receive additional bowel care per MD. Addendum: 10/04/21 at [address] Amended: Links added.
--- NOTE | 2021-10-04 15:45 | NUR ---
pt had an acute rhythm change with slight hypertension and decrease in o2 sat. Dr. Rodney notified. He came to bedside. Orders received. Respiratory therapy called to bedside also, pt is coughing and appears to gagging. Cardiazem iv push given x 1 with no result noted. Fio2 increased to 100%, andrzej sheridan remains in the high 80's
[2021-10-04] MEDS ORDERED: diltiazem 5mg/ml 5ml inj. IV ONE ×2 (15:55→18:15)
--- NOTE | 2021-10-04 18:30 | NUR ---
Patient in room CICU 2010. I have received report from Paige HARTMANN and had the opportunity to ask questions and assume patient care.
--- NOTE | 2021-10-04 18:39 | NUR ---
Problems reprioritized. Patient report given, questions answered & plan of care reviewed with Giovanny HARTMANN
[2021-10-04] MEDS: diltiazem-NS 100mg/100ml 100 ML IV SCH ×2 (19:42→22:23)
[2021-10-04] MEDS: sennosides/docusate sodium tablet NG SCH (20:55)
[2021-10-05] VITALS (24 sets, daily range): BP systolic 99–130; BP diastolic 55–71
[2021-10-05] MEDS: insulin regular, human U-100 3ml vial - multi-dose SQ SCH ×4 (03:00→20:16)
[2021-10-05 03:07] LABS: BASOPHILS % (AUTO) 0 % (0-1); EOSINOPHILS % (AUTO) 0 % (0-6); HEMATOCRIT 30.6 % (42.0-52.0); HEMOGLOBIN 10.3 g/dl (14.0-17.9); LYMPHOCYTES # (AUTO) 0.1 X10'3 (1.1-4.8); LYMPHOCYTES % (AUTO) 1.3 % (21-51); MEAN CORPUSCULAR HEMOGLOBIN 31.7 PG (27.0-31.0); MEAN CORPUSCULAR HGB CONC 33.8 g/dL (33.0-36.5); MEAN CORPUSCULAR VOLUME 93.8 FL (78-98); MEAN PLATELET VOLUME 7.9 FL (7.4-10.4); MONOCYTES # (AUTO) 0.2 X10'3 (0-0.9); NEUTROPHILS # (AUTO) 8.1 X10'3 (1.8-7.7); NEUTROPHILS % (AUTO) 96.7 % (42-75); PLATELET COUNT 160 X10'3 (140-440); RED BLOOD COUNT 3.26 X10'6 (4.70-6.10); RED CELL DISTRIBUTION WIDTH 13.6 % (11.5-14.5); WHITE BLOOD COUNT 8.4 X10'3 (4.5-11.0)
[2021-10-05 03:17] LABS: D-DIMER 2.18 MG/L FEU (0-0.50); PARTIAL THROMBOPLASTIN TIME 27 SECONDS (22-32)
[2021-10-05 03:29] LABS: ALANINE AMINOTRANSFERASE 37 U/L (12-78); ALBUMIN 1.4 G/DL (3.4-5.0); ALBUMIN/GLOBULIN RATIO 0.4 (1.1-1.5); ALKALINE PHOSPHATASE 67 IU/L (46-116); ANION GAP 2 (8-16); ASPARTATE AMINO TRANSFERASE 22 U/L (10-37); BILIRUBIN,TOTAL 0.7 MG/DL (0.1-1.0); BLOOD UREA NITROGEN 34 MG/DL (7-18); BUN/CREATININE RATIO 45.3 (5.4-32.0); C-REACTIVE PROTEIN 11.31 MG/DL (0.0-0.5); CALCIUM 8.2 MG/DL (8.5-10.1); CHLORIDE 108 MMOL/L (99-107); CREATININE 0.75 MG/DL (0.60-1.10); GLUCOSE 183 MG/DL (70-104); MAGNESIUM 2.2 MG/DL (1.5-2.4); POTASSIUM 4.8 MMOL/L (3.5-5.1); SODIUM 141 MMOL/L (135-145); eGFR > 90 ML/MIN
[2021-10-05 04:15] LABS: ABG BASE EXCESS 3.4 mmol/L (-2.0-2.0); ABG HCO3 28.3 mmol/L (22.0-26.0); ABG PCO2 (T) 43.4 mmHg (35.0-48.0); ABG PO2 (T) 63.9 mmHg (75.0-100.0); ALLEN'S TEST POSITIVE; FCOHb 0.3 % (0.0-3.9); FMetHb 0.1 % (0.0-1.5); FO2Hb 92.6 % (94-97); PATIENT TEMPERATURE 36.5; PEEP 12 cm H2O; RESPIRATORY RATE 24 b/min; TOTAL HEMOGLOBIN 11.5 G/dl (14.0-18.0)
[2021-10-05] MEDS: midazolam 100mg in NS 100ml 100 ML IV PRN ×4 (04:55→21:49)
[2021-10-05] MEDS ORDERED: furosemide 40mg/4ml inj IV ONE ×2 (05:10→16:25)
[2021-10-05] MEDS: lactobacillus rhamnosus 10,000 MMU CELLS/CAPSULE PO SCH ×2 (07:41→20:09)
[2021-10-05] MEDS: atorvastatin 20mg tablet PO SCH (07:41)
[2021-10-05] MEDS: sennosides/docusate sodium tablet NG SCH ×2 (07:41→20:09)
[2021-10-05] MEDS: methylPREDNISolone sod succ/PF 40mg inj. IV SCH ×2 (07:41→16:00)
[2021-10-05] MEDS: lansoprazole 15mg solutab PO SCH (07:41)
[2021-10-05] MEDS: polyethylene glycol 3350 17gm powd pack NG SCH (07:41)
[2021-10-05] MEDS: piperacillin/tazo 3.375gm/50ml 50 ML IV SCH ×2 (07:42→15:26)
[2021-10-05] MEDS: enoxaparin 30mg/0.3ml syringe SUBCUT SCH ×2 (07:42→20:09)
[2021-10-05] MEDS: enoxaparin 60mg/0.6ml syringe SUBCUT SCH ×2 (07:42→20:10)
[2021-10-05] MEDS: fentaNYL/PF inj 2,500 MCG in normal saline 250ml IV soln 200 ML IV PRN ×3 (08:55→19:53)
--- NOTE | 2021-10-05 15:09 | NUR ---
pt placed supine
[2021-10-05] MEDS: K, MAG and/or Phos replacement - Verify level? MC SCH (19:19)
[2021-10-06] VITALS (22 sets, daily range): BP systolic 112–146; BP diastolic 61–80
[2021-10-06] MEDS: methylPREDNISolone sod succ/PF 40mg inj. IV SCH ×3 (01:33→15:03)
[2021-10-06] MEDS: piperacillin/tazo 3.375gm/50ml 50 ML IV SCH ×3 (01:33→15:04)
[2021-10-06] MEDS: insulin regular, human U-100 3ml vial - multi-dose SQ SCH ×4 (02:31→20:36)
[2021-10-06] MEDS: midazolam 100mg in NS 100ml 100 ML IV PRN ×4 (02:32→22:19)
[2021-10-06 03:06] LABS: PARTIAL THROMBOPLASTIN TIME 31 SECONDS (22-32)
[2021-10-06 03:25] LABS: BASOPHILS % (AUTO) 0.1 % (0-1); EOSINOPHILS % (AUTO) 0 % (0-6); HEMATOCRIT 31.6 % (42.0-52.0); HEMOGLOBIN 10.7 g/dl (14.0-17.9); LYMPHOCYTES # (AUTO) 0.1 X10'3 (1.1-4.8); LYMPHOCYTES % (AUTO) 1.5 % (21-51); MEAN CORPUSCULAR HEMOGLOBIN 32.1 PG (27.0-31.0); MEAN CORPUSCULAR HGB CONC 33.9 g/dL (33.0-36.5); MEAN CORPUSCULAR VOLUME 94.6 FL (78-98); MEAN PLATELET VOLUME 8.1 FL (7.4-10.4); MONOCYTES # (AUTO) 0.3 X10'3 (0-0.9); MONOCYTES % (AUTO) 3.2 % (2-12); NEUTROPHILS # (AUTO) 8.2 X10'3 (1.8-7.7); NEUTROPHILS % (AUTO) 95.2 % (42-75); PLATELET COUNT 136 X10'3 (140-440); RED BLOOD COUNT 3.34 X10'6 (4.70-6.10); RED CELL DISTRIBUTION WIDTH 13.8 % (11.5-14.5); WHITE BLOOD COUNT 8.6 X10'3 (4.5-11.0)
[2021-10-06 03:25] LABS: ABG BASE EXCESS 4.2 mmol/L (-2.0-2.0); ABG HCO3 29.5 mmol/L (22.0-26.0); ABG OXYGEN SATURATION 91.5 % (94-97); ALLEN'S TEST POSITIVE; FCOHb 0.3 % (0.0-3.9); FMetHb 0.1 % (0.0-1.5); FO2Hb 91.1 % (94-97); PATIENT TEMPERATURE 36.7; PEEP 18 cm H2O; RESPIRATORY RATE 24 b/min; TOTAL HEMOGLOBIN 10.6 G/dl (14.0-18.0)
[2021-10-06 03:53] LABS: ALANINE AMINOTRANSFERASE 38 U/L (12-78); ALBUMIN 1.5 G/DL (3.4-5.0); ALBUMIN/GLOBULIN RATIO 0.4 (1.1-1.5); ALKALINE PHOSPHATASE 74 IU/L (46-116); ANION GAP 7 (8-16); ASPARTATE AMINO TRANSFERASE 25 U/L (10-37); BILIRUBIN,TOTAL 0.5 MG/DL (0.1-1.0); BLOOD UREA NITROGEN 46 MG/DL (7-18); BUN/CREATININE RATIO 51.7 (5.4-32.0); CALCIUM 7.9 MG/DL (8.5-10.1); CHLORIDE 108 MMOL/L (99-107); CREATININE 0.89 MG/DL (0.60-1.10); GLUCOSE 152 MG/DL (70-104); MAGNESIUM 2.4 MG/DL (1.5-2.4); PHOSPHORUS 4.2 MG/DL (2.3-4.5); POTASSIUM 4.6 MMOL/L (3.5-5.1); SODIUM 146 MMOL/L (135-145); TOTAL CARBON DIOXIDE 31.1 MMOL/L (24-32); TOTAL PROTEIN 5.5 G/DL (6.4-8.2); eGFR 86 ML/MIN
[2021-10-06] MEDS: fentaNYL/PF inj 2,500 MCG in normal saline 250ml IV soln 200 ML IV PRN ×2 (04:11→10:28)
[2021-10-06] MEDS: lansoprazole 15mg solutab PO SCH (07:11)
[2021-10-06] MEDS: enoxaparin 30mg/0.3ml syringe SUBCUT SCH ×2 (07:12→20:38)
[2021-10-06] MEDS: enoxaparin 60mg/0.6ml syringe SUBCUT SCH ×2 (07:12→20:37)
[2021-10-06] MEDS: polyethylene glycol 3350 17gm powd pack NG SCH (07:13)
[2021-10-06] MEDS: atorvastatin 20mg tablet PO SCH (07:13)
[2021-10-06] MEDS: sennosides/docusate sodium tablet NG SCH ×2 (07:13→20:37)
[2021-10-06] MEDS: lactobacillus rhamnosus 10,000 MMU CELLS/CAPSULE PO SCH ×2 (07:13→20:37)
[2021-10-06] MEDS: K, MAG and/or Phos replacement - Verify level? MC SCH (07:15)
[2021-10-06 07:28] LABS: PLATELET ESTIMATE DECREASED; TOTAL CELLS COUNTED 100
[2021-10-06] MEDS: diltiazem-NS 100mg/100ml 100 ML IV SCH (10:15)
[2021-10-06] MEDS ORDERED: furosemide 40mg/4ml inj IV ONE (11:00)
--- NOTE | 2021-10-06 13:54 | NUR ---
Reassessment: Pt remains intubated and tolerating TF with GRV WNL. Of note, pt was receiving Pivot 1.5 at 65 mL/hr 10/05 d/t shortage of Vital AF, which is now back in stock. TC to RN with recommendation to resume Vital AF at 85 mL/hr. Per RN pt actually receiving Vital High Protein right now though once this bottle is out pt will be switching back to Vital AF and RN will advance TF goal rate once pt no longer prone. RN also reports difficulty obtaining gastric residuals and RN will assess need for NG tube replacement once pt no longer prone. LBM 10/04, first BM since 09/25, however BM is documented as a smear. Pt receiving routine bowel care with PRN MoM available though not documented to be given. Recommend utilizing PRN bowel care to assist with bowel regularity given no significant BM since admit. Will continue to follow closely. Recommendations: 1) Continuous TF via NGT using Vital AF with at 85 mL/hr to provide 2040 mL total volume/day, 2448 kcal, 153 g protein, and 1654 mL water 2) Additional 150 mL water flush Q4H; monitor serum Na and adjust as appropriate 3) Prealbumin q Friday/ 4) Daily scaled weights 5) Routine bowel care; utilize PRN bowel care given no significant BM since admit 6) DM education once stable following extubation, A1c 7.2%. Will need official DM dx by physician prior to RD education IF this is a new diagnosis, PMH unknown Addendum: 10/06/21 at [address] Amended: Links added.
[2021-10-06] MEDS: furosemide 40mg/4ml inj IV SCH (20:38)
[2021-10-07] VITALS (23 sets, daily range): BP systolic 115–218; BP diastolic 63–107
[2021-10-07] MEDS: insulin regular, human U-100 3ml vial - multi-dose SQ SCH ×4 (01:05→21:49)
[2021-10-07] MEDS: methylPREDNISolone sod succ/PF 40mg inj. IV SCH ×3 (01:09→15:44)
[2021-10-07] MEDS: vancomycin/NS 1 GM ADD-VANTAGE 250 ML IV SCH ×2 (01:09→11:16)
[2021-10-07 01:38] LABS: BASOPHILS % (AUTO) 0.2 % (0-1); LYMPHOCYTES # (AUTO) 0.2 X10'3 (1.1-4.8); NEUTROPHILS % (AUTO) 94.6 % (42-75); RED BLOOD COUNT 3.31 X10'6 (4.70-6.10)
[2021-10-07 01:39] LABS: EOSINOPHILS % (AUTO) 0 % (0-6); HEMATOCRIT 30.9 % (42.0-52.0); HEMOGLOBIN 10.6 g/dl (14.0-17.9); LYMPHOCYTES % (AUTO) 1.8 % (21-51); MEAN CORPUSCULAR HGB CONC 34.4 g/dL (33.0-36.5); MEAN CORPUSCULAR VOLUME 93.1 FL (78-98); MEAN PLATELET VOLUME 7.6 FL (7.4-10.4); MONOCYTES # (AUTO) 0.4 X10'3 (0-0.9); MONOCYTES % (AUTO) 3.4 % (2-12); NEUTROPHILS # (AUTO) 11.6 X10'3 (1.8-7.7); PLATELET COUNT 160 X10'3 (140-440); RED CELL DISTRIBUTION WIDTH 13.4 % (11.5-14.5); WHITE BLOOD COUNT 12.3 X10'3 (4.5-11.0)
[2021-10-07 01:52] LABS: PARTIAL THROMBOPLASTIN TIME 24 SECONDS (22-32)
[2021-10-07 01:54] LABS: ALANINE AMINOTRANSFERASE 40 U/L (12-78); ALBUMIN 1.7 G/DL (3.4-5.0); ALBUMIN/GLOBULIN RATIO 0.4 (1.1-1.5); ALKALINE PHOSPHATASE 91 IU/L (46-116); ANION GAP 5 (8-16); ASPARTATE AMINO TRANSFERASE 26 U/L (10-37); BILIRUBIN,TOTAL 0.6 MG/DL (0.1-1.0); BLOOD UREA NITROGEN 46 MG/DL (7-18); C-REACTIVE PROTEIN 7.28 MG/DL (0.0-0.5); CALCIUM 8.3 MG/DL (8.5-10.1); CHLORIDE 107 MMOL/L (99-107); CREATININE 0.92 MG/DL (0.60-1.10); GLUCOSE 158 MG/DL (70-104); MAGNESIUM 2.4 MG/DL (1.5-2.4); PHOSPHORUS 4.3 MG/DL (2.3-4.5); POTASSIUM 4.4 MMOL/L (3.5-5.1); SODIUM 146 MMOL/L (135-145); TOTAL CARBON DIOXIDE 33.6 MMOL/L (24-32); TOTAL PROTEIN 5.9 G/DL (6.4-8.2); VANCOMYCIN,TROUGH 9.5 UG/ML (6.0-14.0); eGFR 83 ML/MIN
[2021-10-07] MEDS: fentaNYL/PF inj 2,500 MCG in normal saline 250ml IV soln 200 ML IV PRN ×2 (03:07→21:32)
[2021-10-07] MEDS: midazolam 100mg in NS 100ml 100 ML IV PRN ×4 (03:07→21:32)
[2021-10-07 03:13] LABS: ABG BASE EXCESS 6.9 mmol/L (-2.0-2.0); ABG HCO3 32.9 mmol/L (22.0-26.0); ABG OXYGEN SATURATION 90.3 % (94-97); ABG PCO2 (T) 53.3 mmHg (35.0-48.0); ABG PO2 (T) 59.2 mmHg (75.0-100.0); ALLEN'S TEST POSITIVE; FCOHb 0.2 % (0.0-3.9); FMetHb 0.3 % (0.0-1.5); FO2Hb 89.8 % (94-97); PATIENT TEMPERATURE 36.7; PEEP 12 cm H2O; RESPIRATORY RATE 22 b/min; TOTAL HEMOGLOBIN 11.7 G/dl (14.0-18.0)
[2021-10-07] MEDS: diltiazem-NS 100mg/100ml 100 ML IV SCH (06:15)
[2021-10-07] MEDS: K, MAG and/or Phos replacement - Verify level? MC SCH (08:00)
[2021-10-07] MEDS: sennosides/docusate sodium tablet NG SCH ×2 (09:02→21:23)
[2021-10-07] MEDS: furosemide 40mg/4ml inj IV SCH ×2 (09:02→21:22)
[2021-10-07] MEDS: lactobacillus rhamnosus 10,000 MMU CELLS/CAPSULE PO SCH ×2 (09:02→21:23)
[2021-10-07] MEDS: lansoprazole 15mg solutab PO SCH (09:02)
[2021-10-07] MEDS: polyethylene glycol 3350 17gm powd pack NG SCH (09:02)
[2021-10-07] MEDS: enoxaparin 60mg/0.6ml syringe SUBCUT SCH ×2 (09:03→21:24)
[2021-10-07] MEDS: atorvastatin 20mg tablet PO SCH (09:03)
[2021-10-07] MEDS: enoxaparin 30mg/0.3ml syringe SUBCUT SCH ×2 (09:04→21:24)
[2021-10-07] MEDS: piperacillin/tazo 3.375gm/50ml 50 ML IV SCH ×3 (09:10→15:44)
[2021-10-07 11:50] LABS: D-DIMER 2.57 MG/L FEU (0-0.50)
[2021-10-07] MEDS ORDERED: CISatracurium **Bolus** 2 mg/ml inj IV PRN ×3 (16:20)
[2021-10-07] MEDS ORDERED: VANCOMYCIN LEVEL IV ONE (22:30)
[2021-10-08] VITALS (25 sets, daily range): BP systolic 106–145; BP diastolic 62–81
[2021-10-08 00:29] LABS: ALANINE AMINOTRANSFERASE 42 U/L (12-78); ALBUMIN 1.8 G/DL (3.4-5.0); ALBUMIN/GLOBULIN RATIO 0.4 (1.1-1.5); ALKALINE PHOSPHATASE 111 IU/L (46-116); ANION GAP 5 (8-16); ASPARTATE AMINO TRANSFERASE 32 U/L (10-37); BILIRUBIN,TOTAL 0.8 MG/DL (0.1-1.0); BLOOD UREA NITROGEN 43 MG/DL (7-18); BUN/CREATININE RATIO 46.2 (5.4-32.0); CHLORIDE 107 MMOL/L (99-107); CREATININE 0.93 MG/DL (0.60-1.10); GLUCOSE 187 MG/DL (70-104); MAGNESIUM 2.3 MG/DL (1.5-2.4); PHOSPHORUS 3.9 MG/DL (2.3-4.5); POTASSIUM 4.8 MMOL/L (3.5-5.1); PREALBUMIN 23.8 MG/DL (19-36); SODIUM 146 MMOL/L (135-145); TOTAL CARBON DIOXIDE 33.6 MMOL/L (24-32); eGFR 82 ML/MIN
[2021-10-08] MEDS: methylPREDNISolone sod succ/PF 40mg inj. IV SCH ×3 (01:30→15:00)
[2021-10-08] MEDS: piperacillin/tazo 3.375gm/50ml 50 ML IV SCH ×3 (01:31→15:01)
[2021-10-08] MEDS: midazolam 100mg in NS 100ml 100 ML IV PRN ×5 (01:39→19:46)
[2021-10-08] MEDS: diltiazem-NS 100mg/100ml 100 ML IV SCH ×2 (02:15→22:15)
[2021-10-08] MEDS: insulin regular, human U-100 3ml vial - multi-dose SQ SCH ×4 (02:35→20:20)
[2021-10-08] MEDS: vancomycin/NS 1 GM ADD-VANTAGE 250 ML IV SCH ×2 (02:54→11:42)
[2021-10-08 03:09] LABS: BASOPHILS % (AUTO) 0.1 % (0-1); EOSINOPHILS % (AUTO) 0.1 % (0-6); HEMATOCRIT 32.3 % (42.0-52.0); HEMOGLOBIN 10.8 g/dl (14.0-17.9); LYMPHOCYTES # (AUTO) 0.3 X10'3 (1.1-4.8); LYMPHOCYTES % (AUTO) 1.9 % (21-51); MEAN CORPUSCULAR HEMOGLOBIN 31.5 PG (27.0-31.0); MEAN CORPUSCULAR HGB CONC 33.5 g/dL (33.0-36.5); MEAN PLATELET VOLUME 7.4 FL (7.4-10.4); MONOCYTES # (AUTO) 0.4 X10'3 (0-0.9); MONOCYTES % (AUTO) 2.8 % (2-12); NEUTROPHILS # (AUTO) 13.6 X10'3 (1.8-7.7); NEUTROPHILS % (AUTO) 95.1 % (42-75); PLATELET COUNT 190 X10'3 (140-440); RED BLOOD COUNT 3.43 X10'6 (4.70-6.10); RED CELL DISTRIBUTION WIDTH 14.2 % (11.5-14.5); WHITE BLOOD COUNT 14.3 X10'3 (4.5-11.0)
[2021-10-08 03:13] LABS: D-DIMER 3.26 MG/L FEU (0-0.50)
[2021-10-08 03:17] LABS: PARTIAL THROMBOPLASTIN TIME 24 SECONDS (22-32)
[2021-10-08 03:18] LABS: ABG BASE EXCESS 12.1 mmol/L (-2.0-2.0); ABG HCO3 39.4 mmol/L (22.0-26.0); ABG OXYGEN SATURATION 91.2 % (94-97); ABG PCO2 (T) 64.9 mmHg (35.0-48.0); ABG PO2 (T) 60.9 mmHg (75.0-100.0); ALLEN'S TEST POSITIVE; FCOHb 0.2 % (0.0-3.9); FMetHb 0.1 % (0.0-1.5); FO2Hb 90.9 % (94-97); PATIENT TEMPERATURE 36.6; PEEP 16 cm H2O; RESPIRATORY RATE 24 b/min; TOTAL HEMOGLOBIN 11.7 G/dl (14.0-18.0)
[2021-10-08] MEDS: fentaNYL/PF inj 2,500 MCG in normal saline 250ml IV soln 200 ML IV PRN ×2 (05:40→19:33)
[2021-10-08] MEDS: K, MAG and/or Phos replacement - Verify level? MC SCH (08:00)
[2021-10-08 08:29] LABS: VANCOMYCIN,RANDOM 13.2 UG/ML
[2021-10-08] MEDS: lansoprazole 15mg solutab PO SCH (08:38)
[2021-10-08] MEDS: polyethylene glycol 3350 17gm powd pack NG SCH (08:38)
[2021-10-08] MEDS: sennosides/docusate sodium tablet NG SCH ×2 (08:38→20:22)
[2021-10-08] MEDS: enoxaparin 60mg/0.6ml syringe SUBCUT SCH ×2 (08:39→20:23)
[2021-10-08] MEDS: enoxaparin 30mg/0.3ml syringe SUBCUT SCH ×2 (08:39→20:23)
[2021-10-08] MEDS: atorvastatin 20mg tablet PO SCH (08:40)
[2021-10-08] MEDS: lactobacillus rhamnosus 10,000 MMU CELLS/CAPSULE PO SCH ×2 (08:40→20:22)
[2021-10-08] MEDS: furosemide 40mg/4ml inj IV SCH ×4 (08:40→20:22)
[2021-10-09] VITALS (24 sets, daily range): BP systolic 110–139; BP diastolic 69–87
[2021-10-09] MEDS: methylPREDNISolone sod succ/PF 40mg inj. IV SCH ×3 (00:03→15:28)
[2021-10-09] MEDS: VANCOmycin 1250MG/NS 250ml Bag 250 ML IV SCH ×2 (00:03→10:45)
[2021-10-09] MEDS: furosemide 40mg/4ml inj IV SCH ×4 (01:23→20:32)
[2021-10-09] MEDS: piperacillin/tazo 3.375gm/50ml 50 ML IV SCH ×3 (01:23→15:28)
[2021-10-09] MEDS: insulin regular, human U-100 3ml vial - multi-dose SQ SCH ×4 (03:04→22:16)
[2021-10-09 03:15] LABS: ABG BASE EXCESS 13.5 mmol/L (-2.0-2.0); ABG HCO3 41.3 mmol/L (22.0-26.0); ABG PCO2 (T) 63.7 mmHg (35.0-48.0); ABG PO2 (T) 77.2 mmHg (75.0-100.0); ALLEN'S TEST POSITIVE; FCOHb 0.5 % (0.0-3.9); FMetHb 0.2 % (0.0-1.5); FO2Hb 95.3 % (94-97); PATIENT TEMPERATURE 35.1; PEEP 16 cm H2O; RESPIRATORY RATE 24 b/min; TOTAL HEMOGLOBIN 12.4 G/dl (14.0-18.0)
[2021-10-09] MEDS: fentaNYL/PF inj 2,500 MCG in normal saline 250ml IV soln 200 ML IV PRN ×2 (03:15→17:53)
[2021-10-09 03:40] LABS: BASOPHILS % (AUTO) 0.1 % (0-1); EOSINOPHILS % (AUTO) 0.2 % (0-6); HEMATOCRIT 34.6 % (42.0-52.0); HEMOGLOBIN 11.6 g/dl (14.0-17.9); LYMPHOCYTES # (AUTO) 0.2 X10'3 (1.1-4.8); LYMPHOCYTES % (AUTO) 1.5 % (21-51); MEAN CORPUSCULAR HEMOGLOBIN 31.5 PG (27.0-31.0); MEAN CORPUSCULAR HGB CONC 33.4 g/dL (33.0-36.5); MEAN CORPUSCULAR VOLUME 94.2 FL (78-98); MEAN PLATELET VOLUME 7.7 FL (7.4-10.4); MONOCYTES # (AUTO) 0.3 X10'3 (0-0.9); MONOCYTES % (AUTO) 1.7 % (2-12); NEUTROPHILS # (AUTO) 16.5 X10'3 (1.8-7.7); NEUTROPHILS % (AUTO) 96.5 % (42-75); PLATELET COUNT 204 X10'3 (140-440); RED BLOOD COUNT 3.68 X10'6 (4.70-6.10); RED CELL DISTRIBUTION WIDTH 13.6 % (11.5-14.5); WHITE BLOOD COUNT 17.1 X10'3 (4.5-11.0)
[2021-10-09 03:52] LABS: D-DIMER 2.31 MG/L FEU (0-0.50); PARTIAL THROMBOPLASTIN TIME 27 SECONDS (22-32)
[2021-10-09 03:55] LABS: ALANINE AMINOTRANSFERASE 44 U/L (12-78); ALBUMIN/GLOBULIN RATIO 0.4 (1.1-1.5); ALKALINE PHOSPHATASE 101 IU/L (46-116); ANION GAP 3 (8-16); ASPARTATE AMINO TRANSFERASE 32 U/L (10-37); BILIRUBIN,TOTAL 0.8 MG/DL (0.1-1.0); BLOOD UREA NITROGEN 41 MG/DL (7-18); BUN/CREATININE RATIO 50.6 (5.4-32.0); C-REACTIVE PROTEIN 4.93 MG/DL (0.0-0.5); CALCIUM 8.2 MG/DL (8.5-10.1); CHLORIDE 104 MMOL/L (99-107); CREATININE 0.81 MG/DL (0.60-1.10); GLUCOSE 136 MG/DL (70-104); MAGNESIUM 2.3 MG/DL (1.5-2.4); PHOSPHORUS 3.5 MG/DL (2.3-4.5); POTASSIUM 4.2 MMOL/L (3.5-5.1); SODIUM 146 MMOL/L (135-145); TOTAL PROTEIN 6.6 G/DL (6.4-8.2); eGFR > 90 ML/MIN
[2021-10-09 04:43] LABS: TOTAL CELLS COUNTED 100
[2021-10-09 04:45] LABS: PLATELET ESTIMATE NORMAL
[2021-10-09] MEDS: midazolam 100mg in NS 100ml 100 ML IV PRN ×3 (05:45→20:27)
[2021-10-09] MEDS: K, MAG and/or Phos replacement - Verify level? MC SCH (08:00)
[2021-10-09] MEDS: enoxaparin 30mg/0.3ml syringe SUBCUT SCH ×2 (08:20→20:33)
[2021-10-09] MEDS: sennosides/docusate sodium tablet NG SCH ×2 (08:20→20:32)
[2021-10-09] MEDS: lansoprazole 15mg solutab PO SCH (08:20)
[2021-10-09] MEDS: atorvastatin 20mg tablet PO SCH (08:21)
[2021-10-09] MEDS: polyethylene glycol 3350 17gm powd pack NG SCH (08:21)
[2021-10-09] MEDS: lactobacillus rhamnosus 10,000 MMU CELLS/CAPSULE PO SCH ×2 (08:21→20:33)
[2021-10-09] MEDS: enoxaparin 60mg/0.6ml syringe SUBCUT SCH ×2 (08:22→20:33)
--- NOTE | 2021-10-09 12:13 | NUR ---
Reassessment: Pt remains intubated and tolerating TF at goal rate with GRV WNL. LBM 10/04, documented to only have had eliezer and smears. Pt receiving routine Senna-S and Miralax, with PRN MoM available however not documented to be given. Recommend utilizing PRN bowel care to assist with bowel regularity. No changes to nutrition interventions at this time. Will continue to follow. Recommendations: 1) Continuous TF via NGT using Vital AF with at 85 mL/hr to provide 2040 mL total volume/day, 2448 kcal, 153 g protein, and 1654 mL water 2) Additional 150 mL water flush Q4H; monitor serum Na and adjust as appropriate 3) Prealbumin q Friday/ 4) Daily scaled weights 5) Routine bowel care; utilize PRN bowel care given no significant BM since admit 6) DM education once stable following extubation, A1c 7.2%. Will need official DM dx by physician prior to RD education IF this is a new diagnosis, PMH unknown Addendum: 10/09/21 at [address] Amended: Links added.
[2021-10-09] MEDS: diltiazem-NS 100mg/100ml 100 ML IV SCH (17:54)
[2021-10-10] VITALS (24 sets, daily range): BP systolic 108–140; BP diastolic 63–90
[2021-10-10] MEDS: VANCOmycin 1250MG/NS 250ml Bag 250 ML IV SCH ×2 (00:02→10:56)
[2021-10-10] MEDS: methylPREDNISolone sod succ/PF 40mg inj. IV SCH ×3 (00:02→20:35)
[2021-10-10] MEDS: midazolam 100mg in NS 100ml 100 ML IV PRN ×4 (01:09→20:36)
[2021-10-10] MEDS: furosemide 40mg/4ml inj IV SCH ×4 (01:11→20:35)
[2021-10-10] MEDS: piperacillin/tazo 3.375gm/50ml 50 ML IV SCH ×3 (01:11→15:36)
[2021-10-10] MEDS: fentaNYL/PF inj 2,500 MCG in normal saline 250ml IV soln 200 ML IV PRN ×2 (01:40→23:55)
[2021-10-10 02:30] LABS: ABG BASE EXCESS 14.7 mmol/L (-2.0-2.0); ABG HCO3 41.2 mmol/L (22.0-26.0); ABG OXYGEN SATURATION 89.7 % (94-97); ABG PCO2 (T) 60.9 mmHg (35.0-48.0); ABG PO2 (T) 59.1 mmHg (75.0-100.0); ALLEN'S TEST POSITIVE; FCOHb 0.4 % (0.0-3.9); FMetHb 0.1 % (0.0-1.5); FO2Hb 89.3 % (94-97); PATIENT TEMPERATURE 37.5; PEEP 16 cm H2O; RESPIRATORY RATE 24 b/min; TOTAL HEMOGLOBIN 12.5 G/dl (14.0-18.0)
[2021-10-10 02:51] LABS: EOSINOPHILS # (AUTO) 0.1 X10'3 (0-0.9); LYMPHOCYTES # (AUTO) 0.3 X10'3 (1.1-4.8); MONOCYTES # (AUTO) 0.2 X10'3 (0-0.9)
[2021-10-10 02:53] LABS: BASOPHILS % (AUTO) 0.1 % (0-1); EOSINOPHILS % (AUTO) 0.4 % (0-6); HEMATOCRIT 34.7 % (42.0-52.0); HEMOGLOBIN 11.4 g/dl (14.0-17.9); LYMPHOCYTES % (AUTO) 1.9 % (21-51); MEAN CORPUSCULAR HEMOGLOBIN 31.2 PG (27.0-31.0); MEAN CORPUSCULAR HGB CONC 32.9 g/dL (33.0-36.5); MONOCYTES % (AUTO) 1.1 % (2-12); NEUTROPHILS # (AUTO) 17.3 X10'3 (1.8-7.7); NEUTROPHILS % (AUTO) 96.5 % (42-75); PLATELET COUNT 213 X10'3 (140-440); RED BLOOD COUNT 3.66 X10'6 (4.70-6.10); RED CELL DISTRIBUTION WIDTH 13.8 % (11.5-14.5)
[2021-10-10] MEDS: insulin regular, human U-100 3ml vial - multi-dose SQ SCH ×4 (03:03→20:49)
[2021-10-10 03:07] LABS: D-DIMER 2.32 MG/L FEU (0-0.50); PARTIAL THROMBOPLASTIN TIME 27 SECONDS (22-32)
[2021-10-10 03:16] LABS: ALANINE AMINOTRANSFERASE 44 U/L (12-78); ALBUMIN 1.9 G/DL (3.4-5.0); ALBUMIN/GLOBULIN RATIO 0.4 (1.1-1.5); ALKALINE PHOSPHATASE 91 IU/L (46-116); ANION GAP 4 (8-16); ASPARTATE AMINO TRANSFERASE 30 U/L (10-37); BILIRUBIN,TOTAL 0.7 MG/DL (0.1-1.0); BLOOD UREA NITROGEN 47 MG/DL (7-18); C-REACTIVE PROTEIN 2.87 MG/DL (0.0-0.5); CALCIUM 8.3 MG/DL (8.5-10.1); CHLORIDE 104 MMOL/L (99-107); CREATININE 0.94 MG/DL (0.60-1.10); GLUCOSE 162 MG/DL (70-104); MAGNESIUM 2.5 MG/DL (1.5-2.4); PHOSPHORUS 3.3 MG/DL (2.3-4.5); POTASSIUM 4.2 MMOL/L (3.5-5.1); SODIUM 147 MMOL/L (135-145); TOTAL CARBON DIOXIDE 39.1 MMOL/L (24-32); TOTAL PROTEIN 6.2 G/DL (6.4-8.2); eGFR 81 ML/MIN
[2021-10-10] MEDS: K, MAG and/or Phos replacement - Verify level? MC SCH (08:00)
[2021-10-10] MEDS: lansoprazole 15mg solutab PO SCH (08:21)
[2021-10-10] MEDS: sennosides/docusate sodium tablet NG SCH ×2 (08:22→20:35)
[2021-10-10] MEDS: atorvastatin 20mg tablet PO SCH (08:22)
[2021-10-10] MEDS: polyethylene glycol 3350 17gm powd pack NG SCH (08:22)
[2021-10-10] MEDS: enoxaparin 30mg/0.3ml syringe SUBCUT SCH ×2 (08:23→20:36)
[2021-10-10] MEDS: enoxaparin 60mg/0.6ml syringe SUBCUT SCH ×2 (08:23→20:36)
[2021-10-10] MEDS: lactobacillus rhamnosus 10,000 MMU CELLS/CAPSULE PO SCH ×2 (08:24→20:35)
[2021-10-10] MEDS ORDERED: VANCOMYCIN LEVEL IV ONE (10:30)
[2021-10-10] MEDS: diltiazem-NS 100mg/100ml 100 ML IV SCH (14:15)
[2021-10-11] VITALS (24 sets, daily range): BP systolic 108–148; BP diastolic 69–101
[2021-10-11] MEDS: VANCOmycin 1250MG/NS 250ml Bag 250 ML IV SCH ×3 (00:03→22:40)
[2021-10-11] MEDS: midazolam 100mg in NS 100ml 100 ML IV PRN ×5 (01:27→21:54)
[2021-10-11] MEDS: furosemide 40mg/4ml inj IV SCH ×4 (01:28→22:41)
[2021-10-11] MEDS: insulin regular, human U-100 3ml vial - multi-dose SQ SCH ×3 (03:17→23:00)
[2021-10-11 03:37] LABS: C-REACTIVE PROTEIN 1.51 MG/DL (0.0-0.5); D-DIMER 2.59 MG/L FEU (0-0.50); PREALBUMIN 27.9 MG/DL (19-36)
[2021-10-11 04:15] LABS: ABG BASE EXCESS 8.5 mmol/L (-2.0-2.0); ABG HCO3 34.2 mmol/L (22.0-26.0); ABG OXYGEN SATURATION 93.2 % (94-97); ABG PCO2 (T) 52.8 mmHg (35.0-48.0); ABG PO2 (T) 70.3 mmHg (75.0-100.0); ALLEN'S TEST POSITIVE; FCOHb 0.8 % (0.0-3.9); FMetHb 0.1 % (0.0-1.5); FO2Hb 92.4 % (94-97); PATIENT TEMPERATURE 37.2; PEEP 16 cm H2O; RESPIRATORY RATE 24 b/min; TOTAL HEMOGLOBIN 12.3 G/dl (14.0-18.0)
[2021-10-11] MEDS: fentaNYL/PF inj 2,500 MCG in normal saline 250ml IV soln 200 ML IV PRN (07:58)
[2021-10-11] MEDS: K, MAG and/or Phos replacement - Verify level? MC SCH (08:00)
[2021-10-11 08:01] LABS: BASOPHILS % (AUTO) 0.1 % (0-1); EOSINOPHILS # (AUTO) 0.1 X10'3 (0-0.9); EOSINOPHILS % (AUTO) 0.6 % (0-6); HEMATOCRIT 32.9 % (42.0-52.0); HEMOGLOBIN 11.1 g/dl (14.0-17.9); LYMPHOCYTES # (AUTO) 0.3 X10'3 (1.1-4.8); MEAN CORPUSCULAR HEMOGLOBIN 31.9 PG (27.0-31.0); MEAN CORPUSCULAR HGB CONC 33.6 g/dL (33.0-36.5); MEAN PLATELET VOLUME 8.1 FL (7.4-10.4); MONOCYTES # (AUTO) 0.2 X10'3 (0-0.9); MONOCYTES % (AUTO) 1.3 % (2-12); NEUTROPHILS # (AUTO) 16.2 X10'3 (1.8-7.7); PLATELET COUNT 221 X10'3 (140-440); RED BLOOD COUNT 3.47 X10'6 (4.70-6.10); RED CELL DISTRIBUTION WIDTH 14.4 % (11.5-14.5); WHITE BLOOD COUNT 16.9 X10'3 (4.5-11.0)
[2021-10-11 08:05] LABS: ALANINE AMINOTRANSFERASE 44 U/L (12-78); ALBUMIN/GLOBULIN RATIO 0.5 (1.1-1.5); ALKALINE PHOSPHATASE 82 IU/L (46-116); ANION GAP 8 (8-16); ASPARTATE AMINO TRANSFERASE 34 U/L (10-37); BILIRUBIN,TOTAL 0.6 MG/DL (0.1-1.0); BLOOD UREA NITROGEN 53 MG/DL (7-18); BUN/CREATININE RATIO 56.4 (5.4-32.0); CALCIUM 8.3 MG/DL (8.5-10.1); CHLORIDE 106 MMOL/L (99-107); CREATININE 0.94 MG/DL (0.60-1.10); GLUCOSE 166 MG/DL (70-104); POTASSIUM 4.4 MMOL/L (3.5-5.1); SODIUM 149 MMOL/L (135-145); TOTAL CARBON DIOXIDE 35.5 MMOL/L (24-32); TOTAL PROTEIN 6.1 G/DL (6.4-8.2); eGFR 81 ML/MIN
[2021-10-11] MEDS: diltiazem-NS 100mg/100ml 100 ML IV SCH (10:15)
[2021-10-11] MEDS: enoxaparin 30mg/0.3ml syringe SUBCUT SCH ×2 (10:30→22:54)
[2021-10-11] MEDS: enoxaparin 60mg/0.6ml syringe SUBCUT SCH ×2 (10:31→22:53)
[2021-10-11] MEDS: atorvastatin 20mg tablet PO SCH (10:32)
[2021-10-11] MEDS: polyethylene glycol 3350 17gm powd pack NG SCH (10:32)
[2021-10-11] MEDS: lactobacillus rhamnosus 10,000 MMU CELLS/CAPSULE PO SCH ×2 (10:32→22:54)
[2021-10-11] MEDS: lansoprazole 15mg solutab PO SCH (10:32)
[2021-10-11] MEDS: methylPREDNISolone sod succ/PF 40mg inj. IV SCH ×2 (10:33→22:40)
[2021-10-11] MEDS: sennosides/docusate sodium tablet NG SCH ×2 (10:33→20:00)
[2021-10-11] MEDS: piperacillin/tazo 3.375gm/50ml 50 ML IV SCH ×2 (10:33)
[2021-10-11] MEDS ORDERED: magnesium citrate 296ml oral solution PO ONE (11:15)
--- NOTE | 2021-10-11 11:44 | NUR ---
F/u: D/w patient's lack of significant BM since admit while receiving routine Senna-S and Miralax. Additional bowel care to be added per . Addendum: 10/11/21 at [address] Amended: Links added.
--- NOTE | 2021-10-11 11:45 | NUR ---
F/u: D/w patient's lack of significant BM since admit while receiving routine Senna-S and Miralax. Additional bowel care to be added per . Addendum: 10/11/21 at [address] Amended: Links added.
[2021-10-11 12:32] LABS: PLATELET ESTIMATE NORMAL; TOTAL CELLS COUNTED 100
[2021-10-12] VITALS (23 sets, daily range): BP systolic 111–156; BP diastolic 69–107
[2021-10-12] MEDS: furosemide 40mg/4ml inj IV SCH ×4 (03:03→20:10)
[2021-10-12] MEDS: midazolam 100mg in NS 100ml 100 ML IV PRN ×5 (03:04→22:49)
[2021-10-12] MEDS: fentaNYL/PF inj 2,500 MCG in normal saline 250ml IV soln 200 ML IV PRN ×3 (03:05→14:20)
[2021-10-12 03:44] LABS: D-DIMER 2.15 MG/L FEU (0-0.50)
[2021-10-12 04:06] LABS: ABG BASE EXCESS 11.5 mmol/L (-2.0-2.0); ABG HCO3 37.7 mmol/L (22.0-26.0); ABG OXYGEN SATURATION 95.5 % (94-97); ABG PO2 (T) 79.5 mmHg (75.0-100.0); ALLEN'S TEST Modified; FCOHb 0.8 % (0.0-3.9); FO2Hb 94.7 % (94-97); PATIENT TEMPERATURE 36.6; PEEP 16 cm H2O; RESPIRATORY RATE 24 b/min; TOTAL HEMOGLOBIN 12.3 G/dl (14.0-18.0)
[2021-10-12] MEDS: diltiazem-NS 100mg/100ml 100 ML IV SCH (06:15)
[2021-10-12] MEDS: K, MAG and/or Phos replacement - Verify level? MC SCH (08:00)
[2021-10-12] MEDS: lactobacillus rhamnosus 10,000 MMU CELLS/CAPSULE PO SCH ×2 (08:59→20:11)
[2021-10-12] MEDS: lansoprazole 15mg solutab PO SCH (09:00)
[2021-10-12] MEDS: polyethylene glycol 3350 17gm powd pack NG SCH (09:00)
[2021-10-12] MEDS: sennosides/docusate sodium tablet NG SCH ×2 (09:00→20:11)
[2021-10-12] MEDS: atorvastatin 20mg tablet PO SCH (09:00)
[2021-10-12] MEDS: enoxaparin 60mg/0.6ml syringe SUBCUT SCH ×2 (09:01→20:11)
[2021-10-12] MEDS: methylPREDNISolone sod succ/PF 40mg inj. IV SCH ×2 (09:01→20:10)
[2021-10-12] MEDS: enoxaparin 30mg/0.3ml syringe SUBCUT SCH ×2 (09:05→20:11)
[2021-10-12] MEDS: insulin regular, human U-100 3ml vial - multi-dose SQ SCH ×3 (09:25→20:37)
[2021-10-12] MEDS: VANCOmycin 1250MG/NS 250ml Bag 250 ML IV SCH (10:11)
[2021-10-12] MEDS: methylnaltrexone br 12mg/0.6ml inj***SubQ only SQ SCH (10:14)
--- NOTE | 2021-10-12 12:15 | NUR ---
Dr Rodney speaking to the family at this time in regards to withdrawal of care. Pending confirmation. Addendum: 10/12/21 at 1226 by Jenna Cooper RN wrong pt
--- NOTE | 2021-10-12 16:42 | NUR ---
F/u: Noted patient's TF is running at 75 mL/hr despite goal rate of 85 mL/hr. TC to RN who states pt reportedly with elevated GRV in the 200s, though this is WNL and per EMR patient's GRV range is 100-150 mL since 10/10 which is also WNL. D/w RN recommendation to advance TF to goal rate. RN reports TF has been off d/t no TF formula available though upon d/w dietary TF formula has been brought to the floor, RN notified. Pt still with no BM despite receiving routine bowel care and one time dose of Mag Citrate 10/11. Pt to get two doses of Relistor per EMR. Will continue to follow. Recommendations: 1) Continuous TF via NGT using Vital AF with at 85 mL/hr to provide 2040 mL total volume/day, 2448 kcal, 153 g protein, and 1654 mL water 2) Additional 150 mL water flush Q4H; monitor serum Na and adjust as appropriate 3) Prealbumin q Friday/ 4) Daily scaled weights 5) Routine bowel care; utilize PRN bowel care given no significant BM since admit 6) DM education once stable following extubation, A1c 7.2%. Will need official DM dx by physician prior to RD education IF this is a new diagnosis, PMH unknown Addendum: 10/12/21 at [address] Amended: Links added.
--- NOTE | 2021-10-12 18:30 | NUR ---
Patient in room CICU 2010. I have received report from day shift RN and had the opportunity to ask questions and assume patient care.
--- NOTE | 2021-10-12 18:30 | NUR ---
Patient in room CICU 2010. I have received report from day shift RN and had the opportunity to ask questions and assume patient care.
[2021-10-13] VITALS (23 sets, daily range): BP systolic 86–129; BP diastolic 54–92
[2021-10-13] MEDS: fentaNYL/PF inj 2,500 MCG in normal saline 250ml IV soln 200 ML IV PRN (00:36)
[2021-10-13] MEDS: furosemide 40mg/4ml inj IV SCH ×4 (02:01→20:08)
[2021-10-13] MEDS: insulin regular, human U-100 3ml vial - multi-dose SQ SCH ×2 (02:18→08:37)
[2021-10-13 02:40] LABS: BASOPHILS % (AUTO) 0.1 % (0-1); EOSINOPHILS # (AUTO) 0.2 X10'3 (0-0.9); EOSINOPHILS % (AUTO) 0.8 % (0-6); HEMATOCRIT 33.6 % (42.0-52.0); LYMPHOCYTES # (AUTO) 0.4 X10'3 (1.1-4.8); LYMPHOCYTES % (AUTO) 1.8 % (21-51); MEAN CORPUSCULAR HEMOGLOBIN 31.5 PG (27.0-31.0); MEAN CORPUSCULAR HGB CONC 32.8 g/dL (33.0-36.5); MEAN CORPUSCULAR VOLUME 96.1 FL (78-98); MEAN PLATELET VOLUME 7.9 FL (7.4-10.4); MONOCYTES # (AUTO) 0.2 X10'3 (0-0.9); MONOCYTES % (AUTO) 0.9 % (2-12); NEUTROPHILS # (AUTO) 20.1 X10'3 (1.8-7.7); NEUTROPHILS % (AUTO) 96.4 % (42-75); PLATELET COUNT 242 X10'3 (140-440); RED CELL DISTRIBUTION WIDTH 14.5 % (11.5-14.5); WHITE BLOOD COUNT 20.9 X10'3 (4.5-11.0)
[2021-10-13 02:49] LABS: D-DIMER 1.72 MG/L FEU (0-0.50)
[2021-10-13 02:54] LABS: ALANINE AMINOTRANSFERASE 76 U/L (12-78); ALBUMIN 1.9 G/DL (3.4-5.0); ALBUMIN/GLOBULIN RATIO 0.5 (1.1-1.5); ALKALINE PHOSPHATASE 137 IU/L (46-116); ANION GAP 1 (8-16); ASPARTATE AMINO TRANSFERASE 65 U/L (10-37); BILIRUBIN,TOTAL 0.8 MG/DL (0.1-1.0); BLOOD UREA NITROGEN 49 MG/DL (7-18); BUN/CREATININE RATIO 59.8 (5.4-32.0); C-REACTIVE PROTEIN 3.22 MG/DL (0.0-0.5); CALCIUM 8.2 MG/DL (8.5-10.1); CHLORIDE 107 MMOL/L (99-107); CREATININE 0.82 MG/DL (0.60-1.10); GLUCOSE 206 MG/DL (70-104); MAGNESIUM 2.7 MG/DL (1.5-2.4); PHOSPHORUS 2.9 MG/DL (2.3-4.5); POTASSIUM 4.9 MMOL/L (3.5-5.1); SODIUM 146 MMOL/L (135-145); TOTAL CARBON DIOXIDE 38.3 MMOL/L (24-32); eGFR > 90 ML/MIN
[2021-10-13] MEDS: midazolam 100mg in NS 100ml 100 ML IV PRN ×2 (03:39→13:40)
[2021-10-13 03:44] LABS: ANISOCYTOSIS 1+; PLATELET ESTIMATE NORMAL; POLYCHROMASIA FEW; TOTAL CELLS COUNTED 100
[2021-10-13 04:36] LABS: ABG HCO3 36.2 mmol/L (22.0-26.0); ABG OXYGEN SATURATION 94.7 % (94-97); ABG PCO2 (T) 54.9 mmHg (35.0-48.0); ABG PO2 (T) 73.6 mmHg (75.0-100.0); ALLEN'S TEST Modified; FCOHb 0.8 % (0.0-3.9); FO2Hb 93.9 % (94-97); PATIENT TEMPERATURE 36.4; PEEP 16 cm H2O; RESPIRATORY RATE 24 b/min; TOTAL HEMOGLOBIN 11.7 G/dl (14.0-18.0)
--- NOTE | 2021-10-13 06:21 | NUR ---
Orientee documentation: I have reviewed and agree with all interventions, assessments performed and documented by Genesis HARTMANN . Orientee Medication Administration: For this medication-pass time frame, all medication were reviewed, dispensed, administered and documented per hospital policy by Genesis HARTMANN . Problems reprioritized. Patient report given, questions answered & plan of care reviewed with Yoan HARTMANN.
[2021-10-13] MEDS: K, MAG and/or Phos replacement - Verify level? MC SCH (08:00)
[2021-10-13] MEDS: lansoprazole 15mg solutab PO SCH (08:01)
[2021-10-13] MEDS: lactobacillus rhamnosus 10,000 MMU CELLS/CAPSULE PO SCH ×2 (08:01→20:07)
[2021-10-13] MEDS: methylPREDNISolone sod succ/PF 40mg inj. IV SCH ×2 (08:01→20:08)
[2021-10-13] MEDS: sennosides/docusate sodium tablet NG SCH ×2 (08:01→20:08)
[2021-10-13] MEDS: polyethylene glycol 3350 17gm powd pack NG SCH (08:02)
[2021-10-13] MEDS: atorvastatin 20mg tablet PO SCH (08:02)
[2021-10-13] MEDS: enoxaparin 30mg/0.3ml syringe SUBCUT SCH ×2 (08:03→20:09)
[2021-10-13] MEDS: enoxaparin 60mg/0.6ml syringe SUBCUT SCH ×2 (08:03→20:08)
[2021-10-14] VITALS (24 sets, daily range): BP systolic 93–115; BP diastolic 53–67
[2021-10-14] MEDS: midazolam 100mg in NS 100ml 100 ML IV PRN ×4 (00:45→23:00)
[2021-10-14] MEDS: furosemide 40mg/4ml inj IV SCH ×4 (02:39→19:44)
[2021-10-14] MEDS: insulin regular, human U-100 3ml vial - multi-dose SQ SCH ×4 (02:51→20:27)
[2021-10-14 03:18] LABS: ABG BASE EXCESS 10.2 mmol/L (-2.0-2.0); ABG HCO3 36.2 mmol/L (22.0-26.0); ABG OXYGEN SATURATION 96.8 % (94-97); ABG PCO2 (T) 57.6 mmHg (35.0-48.0); ABG PO2 (T) 100.4 mmHg (75.0-100.0); ALLEN'S TEST Modified; FCOHb 0.1 % (0.0-3.9); FMetHb 0.2 % (0.0-1.5); FO2Hb 96.5 % (94-97); PATIENT TEMPERATURE 37.2; PEEP 16 cm H2O; RESPIRATORY RATE 24 b/min; TOTAL HEMOGLOBIN 10.2 G/dl (14.0-18.0)
[2021-10-14 03:49] LABS: BASOPHILS % (AUTO) 0 % (0-1); EOSINOPHILS % (AUTO) 0.4 % (0-6); HEMATOCRIT 27.5 % (42.0-52.0); LYMPHOCYTES # (AUTO) 0.2 X10'3 (1.1-4.8); LYMPHOCYTES % (AUTO) 1.5 % (21-51); MEAN CORPUSCULAR HEMOGLOBIN 31.7 PG (27.0-31.0); MEAN CORPUSCULAR HGB CONC 32.7 g/dL (33.0-36.5); MONOCYTES # (AUTO) 0.2 X10'3 (0-0.9); MONOCYTES % (AUTO) 1.2 % (2-12); NEUTROPHILS # (AUTO) 12.8 X10'3 (1.8-7.7); NEUTROPHILS % (AUTO) 96.9 % (42-75); PLATELET COUNT 208 X10'3 (140-440); RED BLOOD COUNT 2.83 X10'6 (4.70-6.10); WHITE BLOOD COUNT 13.2 X10'3 (4.5-11.0)
[2021-10-14 03:56] LABS: D-DIMER 1.65 MG/L FEU (0-0.50)
[2021-10-14 04:11] LABS: ALANINE AMINOTRANSFERASE 103 U/L (12-78); ALBUMIN 1.5 G/DL (3.4-5.0); ALBUMIN/GLOBULIN RATIO 0.4 (1.1-1.5); ALKALINE PHOSPHATASE 140 IU/L (46-116); ANION GAP 3 (8-16); ASPARTATE AMINO TRANSFERASE 67 U/L (10-37); BILIRUBIN,TOTAL 0.5 MG/DL (0.1-1.0); BLOOD UREA NITROGEN 46 MG/DL (7-18); C-REACTIVE PROTEIN 10.99 MG/DL (0.0-0.5); CALCIUM 7.6 MG/DL (8.5-10.1); CHLORIDE 109 MMOL/L (99-107); CREATININE 0.78 MG/DL (0.60-1.10); GLUCOSE 222 MG/DL (70-104); MAGNESIUM 2.5 MG/DL (1.5-2.4); PHOSPHORUS 3.3 MG/DL (2.3-4.5); POTASSIUM 4.4 MMOL/L (3.5-5.1); SODIUM 150 MMOL/L (135-145); TOTAL CARBON DIOXIDE 38.5 MMOL/L (24-32); TOTAL PROTEIN 5.3 G/DL (6.4-8.2); eGFR > 90 ML/MIN
[2021-10-14 04:49] LABS: ANISOCYTOSIS 1+; PLATELET ESTIMATE NORMAL; POLYCHROMASIA FEW; TOTAL CELLS COUNTED 100
[2021-10-14] MEDS: K, MAG and/or Phos replacement - Verify level? MC SCH (08:00)
[2021-10-14] MEDS: methylnaltrexone br 12mg/0.6ml inj***SubQ only SQ SCH (08:00)
[2021-10-14] MEDS: enoxaparin 30mg/0.3ml syringe SUBCUT SCH ×2 (08:01→19:43)
[2021-10-14] MEDS: lansoprazole 15mg solutab PO SCH (08:02)
[2021-10-14] MEDS: enoxaparin 60mg/0.6ml syringe SUBCUT SCH ×2 (08:02→19:43)
[2021-10-14] MEDS: atorvastatin 20mg tablet PO SCH (08:02)
[2021-10-14] MEDS: sennosides/docusate sodium tablet NG SCH ×2 (08:02→19:43)
[2021-10-14] MEDS: lactobacillus rhamnosus 10,000 MMU CELLS/CAPSULE PO SCH ×2 (08:03→19:44)
[2021-10-14] MEDS: methylPREDNISolone sod succ/PF 40mg inj. IV SCH ×2 (08:03→19:42)
[2021-10-14] MEDS: polyethylene glycol 3350 17gm powd pack NG SCH (08:04)
[2021-10-14] MEDS: acetaminophen 325mg tablet NG PRN (14:13)
[2021-10-14] MEDS: fentaNYL/PF inj 2,500 MCG in normal saline 250ml IV soln 200 ML IV PRN ×2 (15:48→23:41)
[2021-10-15] VITALS (23 sets, daily range): BP systolic 99–142; BP diastolic 49–82
[2021-10-15] MEDS: insulin regular, human U-100 3ml vial - multi-dose SQ SCH ×4 (02:13→19:45)
[2021-10-15] MEDS: furosemide 40mg/4ml inj IV SCH ×4 (02:13→19:41)
[2021-10-15 03:06] LABS: ABG HCO3 41.2 mmol/L (22.0-26.0); ABG OXYGEN SATURATION 93.8 % (94-97); ABG PCO2 (T) 74.6 mmHg (35.0-48.0); ALLEN'S TEST Modified; FCOHb 0.4 % (0.0-3.9); FMetHb 0.2 % (0.0-1.5); FO2Hb 93.2 % (94-97); PATIENT TEMPERATURE 36.5; PEEP 16 cm H2O; RESPIRATORY RATE 24 b/min; TOTAL HEMOGLOBIN 10.4 G/dl (14.0-18.0)
[2021-10-15 03:12] LABS: BASOPHILS % (AUTO) 0.3 % (0-1); EOSINOPHILS % (AUTO) 0.1 % (0-6); HEMATOCRIT 27.4 % (42.0-52.0); LYMPHOCYTES # (AUTO) 0.2 X10'3 (1.1-4.8); MEAN CORPUSCULAR HEMOGLOBIN 31.8 PG (27.0-31.0); MEAN CORPUSCULAR HGB CONC 32.8 g/dL (33.0-36.5); MEAN CORPUSCULAR VOLUME 97.1 FL (78-98); MONOCYTES # (AUTO) 0.2 X10'3 (0-0.9); MONOCYTES % (AUTO) 1.7 % (2-12); NEUTROPHILS # (AUTO) 11.7 X10'3 (1.8-7.7); NEUTROPHILS % (AUTO) 95.9 % (42-75); PLATELET COUNT 228 X10'3 (140-440); RED BLOOD COUNT 2.82 X10'6 (4.70-6.10); RED CELL DISTRIBUTION WIDTH 15.1 % (11.5-14.5); WHITE BLOOD COUNT 12.2 X10'3 (4.5-11.0)
[2021-10-15 03:36] LABS: ALANINE AMINOTRANSFERASE 121 U/L (12-78); ALBUMIN 1.6 G/DL (3.4-5.0); ALBUMIN/GLOBULIN RATIO 0.4 (1.1-1.5); ALKALINE PHOSPHATASE 167 IU/L (46-116); ANION GAP 1 (8-16); ASPARTATE AMINO TRANSFERASE 90 U/L (10-37); BILIRUBIN,TOTAL 0.5 MG/DL (0.1-1.0); BLOOD UREA NITROGEN 45 MG/DL (7-18); BUN/CREATININE RATIO 60.8 (5.4-32.0); C-REACTIVE PROTEIN 9.81 MG/DL (0.0-0.5); CALCIUM 7.7 MG/DL (8.5-10.1); CHLORIDE 109 MMOL/L (99-107); CREATININE 0.74 MG/DL (0.60-1.10); GLUCOSE 136 MG/DL (70-104); MAGNESIUM 2.3 MG/DL (1.5-2.4); PHOSPHORUS 3.6 MG/DL (2.3-4.5); POTASSIUM 4.3 MMOL/L (3.5-5.1); SODIUM 150 MMOL/L (135-145); TOTAL CARBON DIOXIDE 39.6 MMOL/L (24-32); TOTAL PROTEIN 5.7 G/DL (6.4-8.2); eGFR > 90 ML/MIN
[2021-10-15] MEDS: midazolam 100mg in NS 100ml 100 ML IV PRN ×3 (04:10→15:37)
[2021-10-15 04:16] LABS: PLATELET ESTIMATE NORMAL; TOTAL CELLS COUNTED 100
[2021-10-15 04:17] LABS: ANISOCYTOSIS 1+; POLYCHROMASIA FEW; STOMATOCYTES FEW
--- NOTE | 2021-10-15 06:30 | NUR ---
Patient in room CICU 2010. I have received report from [facility] and had the opportunity to ask questions and assume patient care.
[2021-10-15] MEDS: K, MAG and/or Phos replacement - Verify level? MC SCH (08:00)
[2021-10-15] MEDS: enoxaparin 30mg/0.3ml syringe SUBCUT SCH ×2 (08:04→19:38)
[2021-10-15] MEDS: polyethylene glycol 3350 17gm powd pack NG SCH (08:04)
[2021-10-15] MEDS: enoxaparin 60mg/0.6ml syringe SUBCUT SCH ×2 (08:04→19:38)
[2021-10-15] MEDS: fentaNYL/PF inj 2,500 MCG in normal saline 250ml IV soln 200 ML IV PRN ×3 (08:04→21:52)
[2021-10-15] MEDS: sennosides/docusate sodium tablet NG SCH ×2 (08:05→19:39)
[2021-10-15] MEDS: lactobacillus rhamnosus 10,000 MMU CELLS/CAPSULE PO SCH ×2 (08:05→19:39)
[2021-10-15] MEDS: methylPREDNISolone sod succ/PF 40mg inj. IV SCH ×2 (08:05→19:38)
[2021-10-15] MEDS: atorvastatin 20mg tablet PO SCH (08:05)
[2021-10-15] MEDS: lansoprazole 15mg solutab PO SCH (08:05)
[2021-10-15] MEDS: lactulose 20gm/30ml cup PO SCH ×2 (11:05→12:05)
--- NOTE | 2021-10-15 18:00 | NUR ---
Tube feeding was off at shift change, tube feeding resume. patient as subcutaneous emphysema aware
[2021-10-15] MEDS: piperacillin/tazo 3.375gm/50ml 50 ML IV SCH (23:47)
[2021-10-16] VITALS (24 sets, daily range): BP systolic 102–148; BP diastolic 57–91
[2021-10-16] MEDS: midazolam 100mg in NS 100ml 100 ML IV PRN ×5 (00:17→19:35)
[2021-10-16] MEDS: furosemide 40mg/4ml inj IV SCH ×4 (01:56→19:30)
[2021-10-16] MEDS: insulin regular, human U-100 3ml vial - multi-dose SQ SCH ×4 (02:14→20:56)
[2021-10-16 02:45] LABS: ABG HCO3 40.8 mmol/L (22.0-26.0); ABG OXYGEN SATURATION 96.1 % (94-97); ABG PCO2 (T) 60.9 mmHg (35.0-48.0); ABG PO2 (T) 88.2 mmHg (75.0-100.0); ALLEN'S TEST Modified; FCOHb 0.4 % (0.0-3.9); FMetHb 0.2 % (0.0-1.5); FO2Hb 95.5 % (94-97); PATIENT TEMPERATURE 37.2; PEEP 16 cm H2O; RESPIRATORY RATE 24 b/min; TOTAL HEMOGLOBIN 8.2 G/dl (14.0-18.0)
[2021-10-16 03:26] LABS: BASOPHILS % (AUTO) 0.2 % (0-1); EOSINOPHILS # (AUTO) 0.1 X10'3 (0-0.9); EOSINOPHILS % (AUTO) 1.2 % (0-6); HEMATOCRIT 24.4 % (42.0-52.0); HEMOGLOBIN 8.1 g/dl (14.0-17.9); LYMPHOCYTES # (AUTO) 0.2 X10'3 (1.1-4.8); LYMPHOCYTES % (AUTO) 2.6 % (21-51); MEAN CORPUSCULAR HEMOGLOBIN 32.5 PG (27.0-31.0); MEAN CORPUSCULAR HGB CONC 33.3 g/dL (33.0-36.5); MEAN CORPUSCULAR VOLUME 97.4 FL (78-98); MONOCYTES # (AUTO) 0.2 X10'3 (0-0.9); MONOCYTES % (AUTO) 2.3 % (2-12); NEUTROPHILS # (AUTO) 8.2 X10'3 (1.8-7.7); NEUTROPHILS % (AUTO) 93.7 % (42-75); PLATELET COUNT 238 X10'3 (140-440); RED CELL DISTRIBUTION WIDTH 15.6 % (11.5-14.5); WHITE BLOOD COUNT 8.8 X10'3 (4.5-11.0)
[2021-10-16 03:36] LABS: ALANINE AMINOTRANSFERASE 187 U/L (12-78); ALBUMIN 1.6 G/DL (3.4-5.0); ALBUMIN/GLOBULIN RATIO 0.4 (1.1-1.5); ALKALINE PHOSPHATASE 202 IU/L (46-116); ANION GAP 2 (8-16); ASPARTATE AMINO TRANSFERASE 124 U/L (10-37); BILIRUBIN,TOTAL 0.6 MG/DL (0.1-1.0); BLOOD UREA NITROGEN 44 MG/DL (7-18); C-REACTIVE PROTEIN 4.16 MG/DL (0.0-0.5); CALCIUM 7.9 MG/DL (8.5-10.1); CHLORIDE 108 MMOL/L (99-107); CREATININE 0.71 MG/DL (0.60-1.10); GLUCOSE 189 MG/DL (70-104); MAGNESIUM 2.4 MG/DL (1.5-2.4); PHOSPHORUS 3.7 MG/DL (2.3-4.5); POTASSIUM 4.4 MMOL/L (3.5-5.1); SODIUM 149 MMOL/L (135-145); TOTAL CARBON DIOXIDE 39.2 MMOL/L (24-32); TOTAL PROTEIN 5.2 G/DL (6.4-8.2); eGFR > 90 ML/MIN
[2021-10-16] MEDS: fentaNYL/PF inj 2,500 MCG in normal saline 250ml IV soln 200 ML IV PRN ×3 (04:23→20:22)
--- NOTE | 2021-10-16 06:17 | NUR ---
Report given to Katie/RN
--- NOTE | 2021-10-16 06:48 | NUR ---
Patient in room CICU 2010. I have received report from Mary HARTMANN and had the opportunity to ask questions and assume patient care.
[2021-10-16] MEDS: methylPREDNISolone sod succ/PF 40mg inj. IV SCH (07:53)
[2021-10-16] MEDS: enoxaparin 30mg/0.3ml syringe SUBCUT SCH ×2 (07:53→19:29)
[2021-10-16] MEDS: polyethylene glycol 3350 17gm powd pack NG SCH (07:54)
[2021-10-16] MEDS: enoxaparin 60mg/0.6ml syringe SUBCUT SCH ×2 (07:54→19:29)
[2021-10-16] MEDS: lansoprazole 15mg solutab PO SCH (07:54)
[2021-10-16] MEDS: lactobacillus rhamnosus 10,000 MMU CELLS/CAPSULE PO SCH ×2 (07:54→19:30)
[2021-10-16] MEDS: atorvastatin 20mg tablet PO SCH (07:54)
[2021-10-16] MEDS: piperacillin/tazo 3.375gm/50ml 50 ML IV SCH ×2 (07:54→15:39)
[2021-10-16] MEDS: sennosides/docusate sodium tablet NG SCH ×2 (08:05→19:30)
[2021-10-16] MEDS: K, MAG and/or Phos replacement - Verify level? MC SCH (08:43)
--- NOTE | 2021-10-16 11:08 | NUR ---
Reassessment: Pt remains intubated and tolerating TF at goal rate of 85 mL/hr with GRV WNL. LBM 10/15 following Lactulose Q1H 10/15, previously without a BM since 10/04. Lactulose has been discontinued but pt continues receiving routine Senna-S and Miralax with PRN MoM available. Noted pt getting 200 mL water flush Q4H per MD, up from previous 150 mL water flush Q4H. No changes to nutrition recommendations at this time. Will continue to follow. Recommendations: 1) Continuous TF via NGT using Vital AF with at 85 mL/hr to provide 2040 mL total volume/day, 2448 kcal, 153 g protein, and 1654 mL water 2) Additional 200 mL water flush Q4H per MD; monitor serum Na 3) Prealbumin q Friday/ 4) Daily scaled weights 5) Routine bowel care; utilize PRN bowel care given previous constipation 6) DM education once stable following extubation, A1c 7.2%. Will need official DM dx by physician prior to RD education IF this is a new diagnosis, PMH unknown Addendum: 10/16/21 at [address] Amended: Links added.
--- NOTE | 2021-10-16 13:00 | NUR ---
laid patient flat in bed to turn him to the right, heart rate in the 180's and afib. Padded patient with pillows and sat him back up head greater than 30 degrees, after about 7 min patients heart rate back in the high 90's to low 100's and sinus rhythm
--- NOTE | 2021-10-16 18:08 | NUR ---
Problems reprioritized. Patient report given, questions answered & plan of care reviewed with tianna HARTMANN.
[2021-10-17] VITALS (24 sets, daily range): BP systolic 91–144; BP diastolic 52–85
[2021-10-17] MEDS: piperacillin/tazo 3.375gm/50ml 50 ML IV SCH ×3 (00:07→15:36)
[2021-10-17] MEDS: midazolam 100mg in NS 100ml 100 ML IV PRN ×4 (00:11→21:52)
[2021-10-17] MEDS: furosemide 40mg/4ml inj IV SCH ×4 (01:18→19:58)
[2021-10-17] MEDS: insulin regular, human U-100 3ml vial - multi-dose SQ SCH ×4 (01:46→20:30)
[2021-10-17 02:32] LABS: ABG BASE EXCESS 12.2 mmol/L (-2.0-2.0); ABG HCO3 38.6 mmol/L (22.0-26.0); ABG OXYGEN SATURATION 92.8 % (94-97); ABG PCO2 (T) 61.2 mmHg (35.0-48.0); ALLEN'S TEST Modified; FCOHb 0.6 % (0.0-3.9); FO2Hb 92.2 % (94-97); PATIENT TEMPERATURE 37.1; PEEP 16 cm H2O; RESPIRATORY RATE 24 b/min; TOTAL HEMOGLOBIN 10.6 G/dl (14.0-18.0)
[2021-10-17 03:26] LABS: BASOPHILS % (AUTO) 0.4 % (0-1); EOSINOPHILS # (AUTO) 0.2 X10'3 (0-0.9); HEMATOCRIT 27.8 % (42.0-52.0); HEMOGLOBIN 9.4 g/dl (14.0-17.9); LYMPHOCYTES # (AUTO) 0.6 X10'3 (1.1-4.8); LYMPHOCYTES % (AUTO) 8.2 % (21-51); MEAN CORPUSCULAR HEMOGLOBIN 32.9 PG (27.0-31.0); MEAN CORPUSCULAR HGB CONC 33.9 g/dL (33.0-36.5); MEAN PLATELET VOLUME 7.6 FL (7.4-10.4); MONOCYTES # (AUTO) 0.2 X10'3 (0-0.9); NEUTROPHILS # (AUTO) 6.1 X10'3 (1.8-7.7); NEUTROPHILS % (AUTO) 85.4 % (42-75); PLATELET COUNT 257 X10'3 (140-440); RED BLOOD COUNT 2.86 X10'6 (4.70-6.10); RED CELL DISTRIBUTION WIDTH 15.1 % (11.5-14.5); WHITE BLOOD COUNT 7.1 X10'3 (4.5-11.0)
[2021-10-17 03:45] LABS: GLUCOSE 132 MG/DL (70-104)
[2021-10-17 03:46] LABS: ALANINE AMINOTRANSFERASE 235 U/L (12-78); ALBUMIN 1.8 G/DL (3.4-5.0); ALBUMIN/GLOBULIN RATIO 0.5 (1.1-1.5); ALKALINE PHOSPHATASE 246 IU/L (46-116); ANION GAP 2 (8-16); ASPARTATE AMINO TRANSFERASE 160 U/L (10-37); BILIRUBIN,TOTAL 0.7 MG/DL (0.1-1.0); BLOOD UREA NITROGEN 37 MG/DL (7-18); BUN/CREATININE RATIO 55.2 (5.4-32.0); CHLORIDE 103 MMOL/L (99-107); CREATININE 0.67 MG/DL (0.60-1.10); MAGNESIUM 2.3 MG/DL (1.5-2.4); PHOSPHORUS 4.1 MG/DL (2.3-4.5); POTASSIUM 3.4 MMOL/L (3.5-5.1); SODIUM 144 MMOL/L (135-145); TOTAL CARBON DIOXIDE 39.3 MMOL/L (24-32); TOTAL PROTEIN 5.7 G/DL (6.4-8.2); eGFR > 90 ML/MIN
[2021-10-17 04:27] LABS: PLATELET ESTIMATE NORMAL; TOTAL CELLS COUNTED 100
[2021-10-17 04:28] LABS: ANISOCYTOSIS FEW; POLYCHROMASIA FEW; STOMATOCYTES FEW
[2021-10-17] MEDS: fentaNYL/PF inj 2,500 MCG in normal saline 250ml IV soln 200 ML IV PRN ×2 (05:02→19:14)
--- NOTE | 2021-10-17 06:00 | NUR ---
Patient in room CICU 2010. I have received report from Mary HARTMANN and had the opportunity to ask questions and assume patient care.
--- NOTE | 2021-10-17 06:34 | NUR ---
Report given to HANNA/SHAHBAZ
[2021-10-17] MEDS: K, MAG and/or Phos replacement - Verify level? MC SCH (07:07)
[2021-10-17] MEDS: atorvastatin 20mg tablet PO SCH (08:10)
[2021-10-17] MEDS: lactobacillus rhamnosus 10,000 MMU CELLS/CAPSULE PO SCH ×2 (08:10→19:14)
[2021-10-17] MEDS: enoxaparin 60mg/0.6ml syringe SUBCUT SCH ×2 (08:11→19:14)
[2021-10-17] MEDS: methylPREDNISolone sod succ/PF 40mg inj. IV SCH (08:11)
[2021-10-17] MEDS: lansoprazole 15mg solutab PO SCH (08:11)
[2021-10-17] MEDS: polyethylene glycol 3350 17gm powd pack NG SCH (08:12)
[2021-10-17] MEDS: sennosides/docusate sodium tablet NG SCH ×2 (08:12→19:14)
[2021-10-17] MEDS: enoxaparin 30mg/0.3ml syringe SUBCUT SCH ×2 (08:12→19:15)
--- NOTE | 2021-10-17 08:45 | NUR ---
Spoke to pts [place], update given, she is waiting for a call from case management so she can come visit.
[2021-10-17] MEDS: dextrose 5%-water 1,000 ML IV SCH ×2 (11:37→23:25)
--- NOTE | 2021-10-17 13:44 | NUR ---
blood pressure dropped to the 90's fentanyl decreased, head of bed lowered, will monitor closely.
[2021-10-17] MEDS ORDERED: albumin (Human) 5% 250ml 250 ML IV ONE ×4 (14:05)
--- NOTE | 2021-10-17 15:12 | NUR ---
blood pressure much improved Dr. Melgar at bedside
--- NOTE | 2021-10-17 15:12 | NUR ---
lot technician at bedside, procedure being performed
[2021-10-17] MEDS ORDERED: amiodarone 150mg/dext, iso-os 100 ML IV ONE (17:20)
[2021-10-17] MEDS ORDERED: potassium Cl 40MEQ/250ML bag 270 ML IV PRN (17:35)
[2021-10-17] MEDS: amiodarone/D5 360MG/200ML BAG 200 ML IV SCH ×2 (17:59→21:51)
[2021-10-17] MEDS: acetaminophen 325mg tablet NG PRN (22:14)
[2021-10-18] VITALS (23 sets, daily range): BP systolic 109–173; BP diastolic 58–91
[2021-10-18] MEDS: piperacillin/tazo 3.375gm/50ml 50 ML IV SCH ×3 (00:04→16:16)
--- NOTE | 2021-10-18 00:18 | NUR ---
Dr. Self notified regarding patient having bloody secretions when suctioning ET, no new order receive
--- NOTE | 2021-10-18 00:49 | NUR ---
Omni is down, I can not pull out metoprolol, pharmacy notified and will sent med
[2021-10-18] MEDS: furosemide 40mg/4ml inj IV SCH ×4 (01:44→19:59)
[2021-10-18] MEDS: insulin regular, human U-100 3ml vial - multi-dose SQ SCH ×4 (02:20→21:12)
[2021-10-18 03:29] LABS: BASOPHILS % (AUTO) 0.1 % (0-1); EOSINOPHILS # (AUTO) 0.1 X10'3 (0-0.9); LYMPHOCYTES # (AUTO) 0.6 X10'3 (1.1-4.8); LYMPHOCYTES % (AUTO) 7.4 % (21-51); MEAN CORPUSCULAR HGB CONC 33.5 g/dL (33.0-36.5); PLATELET COUNT 230 X10'3 (140-440)
[2021-10-18 03:31] LABS: EOSINOPHILS % (AUTO) 1.7 % (0-6); HEMATOCRIT 25.8 % (42.0-52.0); HEMOGLOBIN 8.7 g/dl (14.0-17.9); MEAN CORPUSCULAR HEMOGLOBIN 32.4 PG (27.0-31.0); MEAN CORPUSCULAR VOLUME 96.8 FL (78-98); MEAN PLATELET VOLUME 7.4 FL (7.4-10.4); MONOCYTES # (AUTO) 0.2 X10'3 (0-0.9); NEUTROPHILS # (AUTO) 6.8 X10'3 (1.8-7.7); NEUTROPHILS % (AUTO) 88.8 % (42-75); RED BLOOD COUNT 2.67 X10'6 (4.70-6.10); RED CELL DISTRIBUTION WIDTH 16.4 % (11.5-14.5); WHITE BLOOD COUNT 7.7 X10'3 (4.5-11.0)
[2021-10-18 04:03] LABS: ALANINE AMINOTRANSFERASE 241 U/L (12-78); ALBUMIN 2.5 G/DL (3.4-5.0); ALBUMIN/GLOBULIN RATIO 0.7 (1.1-1.5); ALKALINE PHOSPHATASE 244 IU/L (46-116); ANION GAP 6 (8-16); ASPARTATE AMINO TRANSFERASE 184 U/L (10-37); BILIRUBIN,TOTAL 1.1 MG/DL (0.1-1.0); BLOOD UREA NITROGEN 24 MG/DL (7-18); BUN/CREATININE RATIO 38.7 (5.4-32.0); C-REACTIVE PROTEIN 9.87 MG/DL (0.0-0.5); CALCIUM 7.8 MG/DL (8.5-10.1); CHLORIDE 104 MMOL/L (99-107); CREATININE 0.62 MG/DL (0.60-1.10); GLUCOSE 112 MG/DL (70-104); MAGNESIUM 2.4 MG/DL (1.5-2.4); PHOSPHORUS 3.1 MG/DL (2.3-4.5); POTASSIUM 4.3 MMOL/L (3.5-5.1); PREALBUMIN 18.5 MG/DL (19-36); SODIUM 146 MMOL/L (135-145); TOTAL CARBON DIOXIDE 36.1 MMOL/L (24-32); TOTAL PROTEIN 6.1 G/DL (6.4-8.2); eGFR > 90 ML/MIN
[2021-10-18 04:33] LABS: ABG BASE EXCESS 11.6 mmol/L (-2.0-2.0); ABG HCO3 38.5 mmol/L (22.0-26.0); ABG OXYGEN SATURATION 85.6 % (94-97); ABG PCO2 (T) 66.6 mmHg (35.0-48.0); ABG PO2 (T) 56.3 mmHg (75.0-100.0); ALLEN'S TEST Modified; FCOHb 0.3 % (0.0-3.9); FMetHb 0.1 % (0.0-1.5); FO2Hb 85.3 % (94-97); PATIENT TEMPERATURE 37.6; PEEP 14 cm H2O; RESPIRATORY RATE 24 b/min
[2021-10-18 04:45] LABS: NUCLEATED RED BLOOD CELLS 1 /100WBC (0-0); TOTAL CELLS COUNTED 100
[2021-10-18 04:46] LABS: ANISOCYTOSIS 1+; PLATELET ESTIMATE NORMAL
--- NOTE | 2021-10-18 05:05 | NUR ---
CO2 66.6 on ABG, VENT SETTING ADJUSTED BY RT. Fi02 and Pinsp rate increased
[2021-10-18] MEDS: amiodarone/D5 360MG/200ML BAG 200 ML IV SCH ×3 (05:35→23:40)
--- NOTE | 2021-10-18 06:00 | NUR ---
Problems reprioritized. Patient report given, questions answered & plan of care reviewed with CARLOS HARTMANN.
--- NOTE | 2021-10-18 06:30 | NUR ---
REPORT GIVEN TO HANNA/SHAHBAZ
--- NOTE | 2021-10-18 06:55 | NUR ---
PT APPEARS TO HAVE WORSENED, O2 REQUIREMENT INCREASED, INCREASED SWELLING IN NECK AND UPPER BODY, BLOOD NOW COMING FROM ET TUBE. A FIB HAS RESOLVED, PT REMAINS ON AMIODARONE DRIP.
--- NOTE | 2021-10-18 07:46 | NUR ---
PATIENTS SAT DECREASING, AUDIBLE SOUNDS HEARD, PT COUGHING, RT CALLED TO BEDSIDE, SUCTIONED, PLACED ON TEMP 100% O2, CUFF PRESSURE CHECKED. LARGE AMOUNTS OF THICK SECRETIONS SUCTIONED, TUBE PLACEMENT CHECKED, NECK AND SHOULDER AREAS HAVE SUBQ AIR.
[2021-10-18] MEDS: K, MAG and/or Phos replacement - Verify level? MC SCH (08:00)
[2021-10-18] MEDS: lactobacillus rhamnosus 10,000 MMU CELLS/CAPSULE PO SCH ×2 (08:02→19:59)
[2021-10-18] MEDS: atorvastatin 20mg tablet PO SCH (08:03)
[2021-10-18] MEDS: enoxaparin 30mg/0.3ml syringe SUBCUT SCH ×2 (08:03→20:00)
[2021-10-18] MEDS: lansoprazole 15mg solutab PO SCH (08:03)
[2021-10-18] MEDS: sennosides/docusate sodium tablet NG SCH ×2 (08:03→19:59)
[2021-10-18] MEDS: enoxaparin 60mg/0.6ml syringe SUBCUT SCH ×2 (08:04→20:00)
[2021-10-18] MEDS: methylPREDNISolone sod succ/PF 40mg inj. IV SCH (08:20)
[2021-10-18] MEDS: acetaminophen 325mg tablet NG PRN (09:39)
[2021-10-18] MEDS: polyethylene glycol 3350 17gm powd pack NG SCH (09:43)
[2021-10-18] MEDS: fentaNYL/PF inj 2,500 MCG in normal saline 250ml IV soln 200 ML IV PRN ×3 (09:49→21:33)
--- NOTE | 2021-10-18 10:31 | NUR ---
PTS ARRIVED, JUAQUIN VEE
[2021-10-18] MEDS: dextrose 5%-water 1,000 ML IV SCH (11:55)
--- NOTE | 2021-10-18 13:00 | NUR ---
AFTER MD CONFERENCE, DECIDED TO MAKE PT COMFORT CARE ONLY. DR BANERJEE NOTIFIED, JUAQUIN, BUSINESS OFFICE ASSISTANT NOTIFIED, [employer] NOTIFIED, PT IS REGISTERED WITH [employer]. IS AGREEABLE, THEY WILL BE SENDING A TEAM FOR PROCUREMENT. MD AND RT NOTIFIED OF DELAY
[2021-10-18] MEDS ORDERED: LORazepam 2 mg/ml vial IV PRN (13:35)
[2021-10-18] MEDS ORDERED: morphine 10mg/ml inj. IV PRN (13:35)
--- NOTE | 2021-10-18 16:06 | NUR ---
DONOR TEAM HERE, PTS HAS DECIDED TO DO [employer], TIME LINE IS TOMORROW EVENING, PTS WAITED FOR REPEAT COVID RESULTS, THEY ARE NEGATIVE. DONOR CITY DRIVER THOMAS WILL PHONE PT AT HOME SWATI
--- NOTE | 2021-10-18 18:18 | NUR ---
Problems reprioritized. Patient report given, questions answered & plan of care reviewed with CARLOS HARTMANN.
[2021-10-18 19:41] LABS: ABG BASE EXCESS 10.1 mmol/L (-2.0-2.0); ABG HCO3 36.2 mmol/L (22.0-26.0); ABG OXYGEN SATURATION 88.5 % (94-97); ABG PCO2 (T) 58.3 mmHg (35.0-48.0); ABG PO2 (T) 57.6 mmHg (75.0-100.0); ALLEN'S TEST POSITIVE; FCOHb 0.5 % (0.0-3.9); FMetHb 0.2 % (0.0-1.5); FO2Hb 87.9 % (94-97); PATIENT TEMPERATURE 36.9; PEEP 14 cm H2O; RESPIRATORY RATE 24 b/min; TOTAL HEMOGLOBIN 9.6 G/dl (14.0-18.0)
--- NOTE | 2021-10-18 20:00 | NUR ---
Scannx is currently running
[2021-10-18] MEDS: midazolam 100mg in NS 100ml 100 ML IV PRN (20:03)
[2021-10-18 20:15] LABS: BASOPHILS % (AUTO) 0.1 % (0-1); EOSINOPHILS # (AUTO) 0.1 X10'3 (0-0.9); EOSINOPHILS % (AUTO) 1.8 % (0-6); HEMATOCRIT 25.6 % (42.0-52.0); HEMOGLOBIN 8.5 g/dl (14.0-17.9); LYMPHOCYTES # (AUTO) 0.3 X10'3 (1.1-4.8); LYMPHOCYTES % (AUTO) 3.5 % (21-51); MEAN CORPUSCULAR HEMOGLOBIN 32.2 PG (27.0-31.0); MEAN CORPUSCULAR HGB CONC 33.2 g/dL (33.0-36.5); MEAN CORPUSCULAR VOLUME 97.1 FL (78-98); MEAN PLATELET VOLUME 7.4 FL (7.4-10.4); MONOCYTES # (AUTO) 0.1 X10'3 (0-0.9); MONOCYTES % (AUTO) 1.9 % (2-12); NEUTROPHILS % (AUTO) 92.7 % (42-75); PLATELET COUNT 225 X10'3 (140-440); RED BLOOD COUNT 2.64 X10'6 (4.70-6.10); RED CELL DISTRIBUTION WIDTH 16.5 % (11.5-14.5); WHITE BLOOD COUNT 7.5 X10'3 (4.5-11.0)
[2021-10-18 20:27] LABS: PARTIAL THROMBOPLASTIN TIME 33 SECONDS (22-32)
[2021-10-18 20:29] LABS: ALANINE AMINOTRANSFERASE 242 U/L (12-78); ALBUMIN 2.1 G/DL (3.4-5.0); ALBUMIN/GLOBULIN RATIO 0.5 (1.1-1.5); ALKALINE PHOSPHATASE 252 IU/L (46-116); AMYLASE 205 U/L (25-115); ANION GAP 7 (8-16); ASPARTATE AMINO TRANSFERASE 174 U/L (10-37); BILIRUBIN,DIRECT 0.8 MG/DL (0-0.3); BILIRUBIN,TOTAL 1.3 MG/DL (0.1-1.0); BLOOD UREA NITROGEN 24 MG/DL (7-18); BUN/CREATININE RATIO 37.5 (5.4-32.0); CHLORIDE 103 MMOL/L (99-107); CREATININE 0.64 MG/DL (0.60-1.10); GLUCOSE 114 MG/DL (70-104); LIPASE 464 U/L (73-393); MAGNESIUM 2.5 MG/DL (1.5-2.4); PHOSPHORUS 3.6 MG/DL (2.3-4.5); POTASSIUM 3.6 MMOL/L (3.5-5.1); SODIUM 146 MMOL/L (135-145); TOTAL CARBON DIOXIDE 35.6 MMOL/L (24-32); eGFR > 90 ML/MIN
[2021-10-18 20:33] LABS: CLARITY,URINE CLEAR (Clear); COLOR,URINE YELLOW (Yellow); UA COLLECTION TYPE NON-SPECIFIED
[2021-10-18 20:34] LABS: GLUCOSE, URINE NEGATIVE (Neg); KETONES,URINE NEGATIVE (Neg); LEUKOCYTE ESTERASE ,URINE NEGATIVE (Neg); NITRITES, URINE NEGATIVE (Neg); OCCULT BLOOD,URINE MODERATE (Neg); PROTEIN,URINE TRACE mg/dl (Neg)
[2021-10-18 20:36] LABS: BACTERIA,URINE FEW /HPF (Neg); MUCUS STRANDS FEW /LPF (Neg); SQUAMOUS EPITHELIAL CELL,UR FEW /LPF (FEW); WBC,URINE 0-4 /HPF (0-4)
--- NOTE | 2021-10-18 22:00 | NUR ---
Tube feeding should be stopped per [employer] installation service representative personal Bia
[2021-10-18 22:50] LABS: HIV ANTIBODY 1&2 RAPID NON-REACTIVE (Neg)
[2021-10-19] VITALS (23 sets, daily range): BP systolic 85–142; BP diastolic 48–84
[2021-10-19] MEDS: dextrose 5%-water 1,000 ML IV SCH ×3 (00:25→12:19)
[2021-10-19] MEDS: furosemide 40mg/4ml inj IV SCH ×2 (01:40→09:02)
[2021-10-19] MEDS: piperacillin/tazo 3.375gm/50ml 50 ML IV SCH ×3 (01:45→15:43)
[2021-10-19 02:11] LABS: BASOPHILS % (AUTO) 0.1 % (0-1); EOSINOPHILS # (AUTO) 0.1 X10'3 (0-0.9); EOSINOPHILS % (AUTO) 2.1 % (0-6); HEMATOCRIT 22.8 % (42.0-52.0); HEMOGLOBIN 7.7 g/dl (14.0-17.9); LYMPHOCYTES # (AUTO) 0.2 X10'3 (1.1-4.8); LYMPHOCYTES % (AUTO) 4.1 % (21-51); MEAN CORPUSCULAR HEMOGLOBIN 32.6 PG (27.0-31.0); MEAN CORPUSCULAR HGB CONC 33.7 g/dL (33.0-36.5); MEAN CORPUSCULAR VOLUME 96.7 FL (78-98); MEAN PLATELET VOLUME 7.5 FL (7.4-10.4); MONOCYTES # (AUTO) 0.1 X10'3 (0-0.9); MONOCYTES % (AUTO) 1.9 % (2-12); NEUTROPHILS # (AUTO) 5.5 X10'3 (1.8-7.7); NEUTROPHILS % (AUTO) 91.8 % (42-75); PLATELET COUNT 194 X10'3 (140-440); RED BLOOD COUNT 2.36 X10'6 (4.70-6.10); RED CELL DISTRIBUTION WIDTH 16.2 % (11.5-14.5)
[2021-10-19 02:17] LABS: PARTIAL THROMBOPLASTIN TIME 36 SECONDS (22-32)
[2021-10-19 02:18] LABS: ALANINE AMINOTRANSFERASE 218 U/L (12-78); ALBUMIN 1.8 G/DL (3.4-5.0); ALBUMIN/GLOBULIN RATIO 0.5 (1.1-1.5); ALKALINE PHOSPHATASE 248 IU/L (46-116); ANION GAP 4 (8-16); ASPARTATE AMINO TRANSFERASE 172 U/L (10-37); BILIRUBIN,DIRECT 0.7 MG/DL (0-0.3); BILIRUBIN,TOTAL 1.1 MG/DL (0.1-1.0); BLOOD UREA NITROGEN 27 MG/DL (7-18); BUN/CREATININE RATIO 40.3 (5.4-32.0); CALCIUM 7.8 MG/DL (8.5-10.1); CHLORIDE 104 MMOL/L (99-107); CREATININE 0.67 MG/DL (0.60-1.10); GLUCOSE 146 MG/DL (70-104); MAGNESIUM 2.3 MG/DL (1.5-2.4); PHOSPHORUS 3.4 MG/DL (2.3-4.5); POTASSIUM 3.5 MMOL/L (3.5-5.1); SODIUM 146 MMOL/L (135-145); TOTAL CARBON DIOXIDE 37.6 MMOL/L (24-32); TOTAL PROTEIN 5.6 G/DL (6.4-8.2); eGFR > 90 ML/MIN
[2021-10-19 02:47] LABS: ABG BASE EXCESS 12.2 mmol/L (-2.0-2.0); ABG PO2 (T) 63.3 mmHg (75.0-100.0); ALLEN'S TEST POSITIVE; FCOHb 0.3 % (0.0-3.9); FMetHb 0.2 % (0.0-1.5); FO2Hb 92.5 % (94-97); PATIENT TEMPERATURE 36.2; PEEP 14 cm H2O; RESPIRATORY RATE 24 b/min; TOTAL HEMOGLOBIN 8.1 G/dl (14.0-18.0)
[2021-10-19] MEDS: amiodarone/D5 360MG/200ML BAG 200 ML IV SCH ×5 (05:44→20:14)
--- NOTE | 2021-10-19 06:41 | NUR ---
REPORT GIVEN TO CARL/SHAHBAZ
[2021-10-19] MEDS: lactobacillus rhamnosus 10,000 MMU CELLS/CAPSULE PO SCH (08:00)
[2021-10-19] MEDS: lansoprazole 15mg solutab PO SCH (08:00)
[2021-10-19] MEDS: K, MAG and/or Phos replacement - Verify level? MC SCH (08:00)
[2021-10-19] MEDS: atorvastatin 20mg tablet PO SCH (08:00)
[2021-10-19] MEDS: polyethylene glycol 3350 17gm powd pack NG SCH (08:00)
[2021-10-19] MEDS: sennosides/docusate sodium tablet NG SCH ×2 (08:00→20:22)
[2021-10-19] MEDS: enoxaparin 60mg/0.6ml syringe SUBCUT SCH ×2 (09:01→20:23)
[2021-10-19] MEDS: enoxaparin 30mg/0.3ml syringe SUBCUT SCH ×2 (09:01→20:23)
[2021-10-19] MEDS: methylPREDNISolone sod succ/PF 40mg inj. IV SCH (09:02)
[2021-10-19] MEDS: fentaNYL/PF inj 2,500 MCG in normal saline 250ml IV soln 200 ML IV PRN ×2 (09:48→20:15)
[2021-10-19 10:01] LABS: BASOPHILS % (AUTO) 0.1 % (0-1); EOSINOPHILS # (AUTO) 0.2 X10'3 (0-0.9); EOSINOPHILS % (AUTO) 2.3 % (0-6); HEMATOCRIT 24.3 % (42.0-52.0); HEMOGLOBIN 8.2 g/dl (14.0-17.9); LYMPHOCYTES # (AUTO) 0.3 X10'3 (1.1-4.8); LYMPHOCYTES % (AUTO) 4.2 % (21-51); MEAN CORPUSCULAR HEMOGLOBIN 32.4 PG (27.0-31.0); MEAN CORPUSCULAR HGB CONC 33.7 g/dL (33.0-36.5); MEAN PLATELET VOLUME 7.2 FL (7.4-10.4); MONOCYTES # (AUTO) 0.1 X10'3 (0-0.9); MONOCYTES % (AUTO) 1.7 % (2-12); NEUTROPHILS # (AUTO) 6.7 X10'3 (1.8-7.7); NEUTROPHILS % (AUTO) 91.7 % (42-75); PLATELET COUNT 209 X10'3 (140-440); RED BLOOD COUNT 2.53 X10'6 (4.70-6.10); RED CELL DISTRIBUTION WIDTH 16.8 % (11.5-14.5); WHITE BLOOD COUNT 7.3 X10'3 (4.5-11.0)
[2021-10-19] MEDS ORDERED: potassium Cl 40MEQ/250ML bag 270 ML IV PRN ×2 (10:05→10:15)
[2021-10-19] MEDS ORDERED: albumin (Human) 5% 250ml 250 ML IV ONE ×2 (10:05)
[2021-10-19 10:14] LABS: PARTIAL THROMBOPLASTIN TIME 34 SECONDS (22-32)
[2021-10-19 10:23] LABS: CLARITY,URINE SLIGHTLY CLOUDY (Clear); COLOR,URINE DARK YELLOW (Yellow); GLUCOSE, URINE NEGATIVE (Neg); PROTEIN,URINE 30 mg/dl (Neg); UA COLLECTION TYPE FOLEY CATH
[2021-10-19 10:24] LABS: KETONES,URINE NEGATIVE (Neg); LEUKOCYTE ESTERASE ,URINE NEGATIVE (Neg); NITRITES, URINE NEGATIVE (Neg); OCCULT BLOOD,URINE MODERATE (Neg); UROBILINOGEN,URINE 0.2 E.U/dL (0.2-1.0)
[2021-10-19 10:25] LABS: BACTERIA,URINE FEW /HPF (Neg); WBC,URINE 0-4 /HPF (0-4)
[2021-10-19 10:26] LABS: COARSE GRANULAR CAST 0-3 /LPF (NEGATIVE); MUCUS STRANDS NONE SEEN /LPF (Neg); SQUAMOUS EPITHELIAL CELL,UR NONE SEEN /LPF (FEW)
[2021-10-19 10:42] LABS: ALANINE AMINOTRANSFERASE 225 U/L (12-78); ALBUMIN 1.9 G/DL (3.4-5.0); ALBUMIN/GLOBULIN RATIO 0.5 (1.1-1.5); ALKALINE PHOSPHATASE 263 IU/L (46-116); ANION GAP 4 (8-16); ASPARTATE AMINO TRANSFERASE 180 U/L (10-37); BILIRUBIN,TOTAL 1.5 MG/DL (0.1-1.0); BLOOD UREA NITROGEN 26 MG/DL (7-18); BUN/CREATININE RATIO 38.2 (5.4-32.0); CHLORIDE 105 MMOL/L (99-107); CREATININE 0.68 MG/DL (0.60-1.10); GLUCOSE 113 MG/DL (70-104); MAGNESIUM 2.3 MG/DL (1.5-2.4); POTASSIUM 3.7 MMOL/L (3.5-5.1); SODIUM 146 MMOL/L (135-145); TOTAL CARBON DIOXIDE 36.8 MMOL/L (24-32); TOTAL PROTEIN 5.9 G/DL (6.4-8.2); eGFR > 90 ML/MIN
[2021-10-19] MEDS: midazolam 100mg in NS 100ml 100 ML IV PRN ×3 (11:01→20:15)
[2021-10-19] MEDS: insulin regular, human U-100 3ml vial - multi-dose SQ SCH ×2 (14:08→22:00)
--- NOTE | 2021-10-19 16:14 | NUR ---
Reassessment: Pt was placed on comfort care 10/18 and TF was discontinued. Per MD at critical care rounds 10/19 pt has improved and code status has been changed to DNR. Per MD okay to resume TF at this time, EMR has been updated. LBM 10/17. Will continue to follow. Recommendations: 1) Continuous TF via NGT using Vital AF with at 85 mL/hr to provide 2040 mL total volume/day, 2448 kcal, 153 g protein, and 1654 mL water 2) Additional 200 mL water flush Q4H per MD; monitor serum Na 3) Prealbumin q Friday/ 4) Daily scaled weights 5) Routine bowel care; utilize PRN bowel care given previous constipation 6) DM education once stable following extubation, A1c 7.2%. Will need official DM dx by physician prior to RD education IF this is a new diagnosis, PMH unknown Addendum: 10/19/21 at [address] Amended: Links added.
[2021-10-19] MEDS ORDERED: acetaminophen 325mg tablet NG PRN (16:24)
[2021-10-19] MEDS ORDERED: dextrose ORAL solution 15 GM/59 ML bottle NG PRN ×2 (16:25)
[2021-10-19] MEDS: lactobacillus rhamnosus 10,000 MMU CELLS/CAPSULE NG SCH (20:22)
[2021-10-20] VITALS (26 sets, daily range): BP systolic 90–178; BP diastolic 52–84
[2021-10-20] MEDS: piperacillin/tazo 3.375gm/50ml 50 ML IV SCH ×3 (00:30→16:07)
[2021-10-20] MEDS: dextrose 5%-water 1,000 ML IV SCH ×2 (01:25→13:55)
[2021-10-20] MEDS: insulin regular, human U-100 3ml vial - multi-dose SQ SCH (02:12)
[2021-10-20 02:28] LABS: ABG BASE EXCESS 6.9 mmol/L (-2.0-2.0); ABG HCO3 32.3 mmol/L (22.0-26.0); ABG OXYGEN SATURATION 90.4 % (94-97); ABG PCO2 (T) 50.5 mmHg (35.0-48.0); ABG PO2 (T) 61.3 mmHg (75.0-100.0); ALLEN'S TEST POSITIVE; FCOHb 0.6 % (0.0-3.9); FMetHb 0.3 % (0.0-1.5); FO2Hb 89.6 % (94-97); PATIENT TEMPERATURE 36.4; PEEP 14 cm H2O; RESPIRATORY RATE 24 b/min; TOTAL HEMOGLOBIN 7.7 G/dl (14.0-18.0)
[2021-10-20 03:09] LABS: BASOPHILS % (AUTO) 0.2 % (0-1); EOSINOPHILS # (AUTO) 0.1 X10'3 (0-0.9); EOSINOPHILS % (AUTO) 1.3 % (0-6); LYMPHOCYTES # (AUTO) 0.2 X10'3 (1.1-4.8); LYMPHOCYTES % (AUTO) 3.3 % (21-51); MEAN CORPUSCULAR HEMOGLOBIN 32.5 PG (27.0-31.0); MEAN CORPUSCULAR HGB CONC 33.5 g/dL (33.0-36.5); MEAN PLATELET VOLUME 7.6 FL (7.4-10.4); MONOCYTES # (AUTO) 0.2 X10'3 (0-0.9); MONOCYTES % (AUTO) 2.5 % (2-12); NEUTROPHILS # (AUTO) 5.7 X10'3 (1.8-7.7); NEUTROPHILS % (AUTO) 92.7 % (42-75); PLATELET COUNT 188 X10'3 (140-440); RED BLOOD COUNT 2.09 X10'6 (4.70-6.10); RED CELL DISTRIBUTION WIDTH 16.9 % (11.5-14.5); WHITE BLOOD COUNT 6.2 X10'3 (4.5-11.0)
[2021-10-20] MEDS: amiodarone/D5 360MG/200ML BAG 200 ML IV SCH ×3 (03:10→21:46)
[2021-10-20] MEDS: midazolam 100mg in NS 100ml 100 ML IV PRN ×3 (03:10→14:30)
[2021-10-20 03:25] LABS: HEMATOCRIT 20.2 % (42.0-52.0); HEMOGLOBIN 6.8 g/dl (14.0-17.9)
[2021-10-20 03:29] LABS: ALANINE AMINOTRANSFERASE 160 U/L (12-78); ALBUMIN/GLOBULIN RATIO 0.5 (1.1-1.5); ALKALINE PHOSPHATASE 241 IU/L (46-116); ANION GAP 6 (8-16); ASPARTATE AMINO TRANSFERASE 117 U/L (10-37); BILIRUBIN,TOTAL 0.8 MG/DL (0.1-1.0); BLOOD UREA NITROGEN 30 MG/DL (7-18); BUN/CREATININE RATIO 42.9 (5.4-32.0); CALCIUM 7.6 MG/DL (8.5-10.1); CHLORIDE 106 MMOL/L (99-107); GLUCOSE 158 MG/DL (70-104); SODIUM 145 MMOL/L (135-145); TOTAL CARBON DIOXIDE 33.4 MMOL/L (24-32); TOTAL PROTEIN 5.8 G/DL (6.4-8.2); eGFR > 90 ML/MIN
[2021-10-20 04:06] LABS: BASOPHILS % (AUTO) 0.2 % (0-1); EOSINOPHILS # (AUTO) 0.1 X10'3 (0-0.9); EOSINOPHILS % (AUTO) 1.6 % (0-6); LYMPHOCYTES # (AUTO) 0.3 X10'3 (1.1-4.8); LYMPHOCYTES % (AUTO) 4.3 % (21-51); MEAN CORPUSCULAR HEMOGLOBIN 32.7 PG (27.0-31.0); MEAN CORPUSCULAR HGB CONC 33.8 g/dL (33.0-36.5); MEAN CORPUSCULAR VOLUME 96.7 FL (78-98); MEAN PLATELET VOLUME 7.7 FL (7.4-10.4); MONOCYTES # (AUTO) 0.1 X10'3 (0-0.9); MONOCYTES % (AUTO) 1.7 % (2-12); NEUTROPHILS # (AUTO) 5.8 X10'3 (1.8-7.7); NEUTROPHILS % (AUTO) 92.2 % (42-75); PLATELET COUNT 186 X10'3 (140-440); RED BLOOD COUNT 2.13 X10'6 (4.70-6.10); RED CELL DISTRIBUTION WIDTH 16.9 % (11.5-14.5); WHITE BLOOD COUNT 6.3 X10'3 (4.5-11.0)
[2021-10-20 04:14] LABS: HEMATOCRIT 20.6 % (42.0-52.0)
--- NOTE | 2021-10-20 04:30 | NUR ---
Called Dr. Valdez to discussed critical value but no answer, will call call back
--- NOTE | 2021-10-20 04:55 | NUR ---
Tele DOC, Aidee Beard consulted regarding patient desaturating on vent, current fi02 100%, h&h 7.0 and 20.6 and she put in order for iv vanco and one unit of pack RBC. Blood bank aware of blood order T&S COMPLECTED 2 DAYS AGO
[2021-10-20] MEDS ORDERED: VANCOmycin 2,000MG in NS 500ml IV soln IV ONE (05:30)
--- NOTE | 2021-10-20 05:30 | NUR ---
Multiple attempts made by calling patients wide [place] to obtain consent for blood transfusion, but all attempts was unsuccessful, will try again
--- NOTE | 2021-10-20 06:34 | NUR ---
Report given to CANDY/SHAHBAZ
[2021-10-20] MEDS: fentaNYL/PF inj 2,500 MCG in normal saline 250ml IV soln 200 ML IV PRN ×2 (06:41→08:41)
--- NOTE | 2021-10-20 07:08 | NUR ---
PHONE CONSENT OBTAIN FROM Aby CHEW BY ANOTHER SHAHBAZ Montez/SHAHBAZ
[2021-10-20 07:44] LABS: ABG BASE EXCESS 6.3 mmol/L (-2.0-2.0); ABG HCO3 32.1 mmol/L (22.0-26.0); ABG OXYGEN SATURATION 75.7 % (94-97); ABG PCO2 (T) 53.1 mmHg (35.0-48.0); ABG PO2 (T) 40.4 mmHg (75.0-100.0); FCOHb 0.2 % (0.0-3.9); FMetHb 0.3 % (0.0-1.5); FO2Hb 75.3 % (94-97); PATIENT TEMPERATURE 36.6; PEEP 14 cm H2O; RESPIRATORY RATE 24 b/min; TOTAL HEMOGLOBIN 8.3 G/dl (14.0-18.0)
[2021-10-20] MEDS ORDERED: hydrALAZINE 20mg/ml inj. IV ONE ×2 (07:50→07:51)
[2021-10-20] MEDS ORDERED: niCARdipine I.V. 50 MG in normal saline 250ml IV soln 230 ML IV ONE (07:55)
[2021-10-20] MEDS: enoxaparin 30mg/0.3ml syringe SUBCUT SCH (08:00)
[2021-10-20] MEDS: sennosides/docusate sodium tablet NG SCH ×2 (08:00→20:00)
[2021-10-20] MEDS: enoxaparin 60mg/0.6ml syringe SUBCUT SCH (08:00)
[2021-10-20] MEDS ORDERED: niCARDipine-NS 40mg/200ml IVPB 200 ML IV ONE ×2 (08:00→08:10)
[2021-10-20] MEDS: atorvastatin 20mg tablet NG SCH (08:00)
[2021-10-20 11:41] LABS: HBSAG SCREEN Negative (Negative); HEP A AB, IGM Negative (Negative); HEPATITIS C ANTIBODY <0.1 s/co ratio (0.0-0.9)
[2021-10-20] MEDS: lactobacillus rhamnosus 10,000 MMU CELLS/CAPSULE NG SCH ×2 (12:48→20:00)
[2021-10-20] MEDS: methylPREDNISolone sod succ/PF 40mg inj. IV SCH (12:48)
[2021-10-20] MEDS: polyethylene glycol 3350 17gm powd pack NG SCH (12:49)
[2021-10-20] MEDS: lansoprazole 15mg solutab NG SCH (12:51)
[2021-10-20 13:20] LABS: BASOPHILS % (AUTO) 0.4 % (0-1); EOSINOPHILS # (AUTO) 0.1 X10'3 (0-0.9); LYMPHOCYTES # (AUTO) 0.3 X10'3 (1.1-4.8); MEAN CORPUSCULAR HEMOGLOBIN 31.8 PG (27.0-31.0)
[2021-10-20 13:21] LABS: EOSINOPHILS % (AUTO) 0.4 % (0-6); HEMATOCRIT 26.8 % (42.0-52.0); HEMOGLOBIN 8.8 g/dl (14.0-17.9); LYMPHOCYTES % (AUTO) 2.3 % (21-51); MEAN CORPUSCULAR VOLUME 96.5 FL (78-98); MEAN PLATELET VOLUME 7.7 FL (7.4-10.4); MONOCYTES # (AUTO) 0.4 X10'3 (0-0.9); MONOCYTES % (AUTO) 3.1 % (2-12); NEUTROPHILS # (AUTO) 12.3 X10'3 (1.8-7.7); NEUTROPHILS % (AUTO) 93.8 % (42-75); PLATELET COUNT 259 X10'3 (140-440); RED BLOOD COUNT 2.77 X10'6 (4.70-6.10); RED CELL DISTRIBUTION WIDTH 17.5 % (11.5-14.5); WHITE BLOOD COUNT 13.2 X10'3 (4.5-11.0)
[2021-10-20 13:32] LABS: PARTIAL THROMBOPLASTIN TIME 28 SECONDS (22-32)
[2021-10-20 13:43] LABS: ABG BASE EXCESS 3.7 mmol/L (-2.0-2.0); ABG HCO3 33.5 mmol/L (22.0-26.0); ABG OXYGEN SATURATION 92.6 % (94-97); ABG PCO2 (T) 92.1 mmHg (35.0-48.0); ABG PO2 (T) 78.1 mmHg (75.0-100.0); FCOHb 1.1 % (0.0-3.9); FMetHb 0.2 % (0.0-1.5); FO2Hb 91.4 % (94-97); PATIENT TEMPERATURE 37.2; PEEP 18 cm H2O
[2021-10-20 15:19] LABS: ANISOCYTOSIS 1+; NUCLEATED RED BLOOD CELLS 5 /100WBC (0-0); PLATELET ESTIMATE NORMAL; TOTAL CELLS COUNTED 100
[2021-10-20 15:31] LABS: LARGE PLATELETS FEW; POLYCHROMASIA 2+
[2021-10-20 15:32] LABS: TEAR DROP CELLS FEW
[2021-10-20 15:33] LABS: BURR CELLS FEW
[2021-10-20 15:50] LABS: ABG BASE EXCESS 4.4 mmol/L (-2.0-2.0); ABG HCO3 33.7 mmol/L (22.0-26.0); ABG OXYGEN SATURATION 94.5 % (94-97); ABG PCO2 (T) 86.1 mmHg (35.0-48.0); ABG PO2 (T) 87.6 mmHg (75.0-100.0); FCOHb 0.8 % (0.0-3.9); FMetHb 0.2 % (0.0-1.5); FO2Hb 93.6 % (94-97); PATIENT TEMPERATURE 37.4; PEEP 18 cm H2O; RESPIRATORY RATE 30 b/min; TIDAL VOLUME 350 mL; TOTAL HEMOGLOBIN 9.3 G/dl (14.0-18.0)
[2021-10-20] MEDS: K, MAG and/or Phos replacement - Verify level? MC SCH (15:58)
[2021-10-20] MEDS: VANCOmycin 1250MG/NS 250ml Bag 250 ML IV SCH (18:02)
[2021-10-20 19:38] LABS: ABG HCO3 32.7 mmol/L (22.0-26.0); ABG OXYGEN SATURATION 96.8 % (94-97); ABG PCO2 (T) 78.5 mmHg (35.0-48.0); ABG PO2 (T) 102.4 mmHg (75.0-100.0); FCOHb 0.5 % (0.0-3.9); FMetHb 0.3 % (0.0-1.5); PATIENT TEMPERATURE 37.1; PEEP 18 cm H2O; RESPIRATORY RATE 30 b/min; TIDAL VOLUME 350 mL
[2021-10-21] VITALS (24 sets, daily range): BP systolic 127–168; BP diastolic 61–79
[2021-10-21] MEDS: piperacillin/tazo 3.375gm/50ml 50 ML IV SCH ×4 (00:54→23:56)
[2021-10-21] MEDS: midazolam 100mg in NS 100ml 100 ML IV PRN ×2 (01:51→23:04)
[2021-10-21] MEDS: dextrose 5%-water 1,000 ML IV SCH ×2 (02:25→14:55)
[2021-10-21 03:04] LABS: BASOPHILS % (AUTO) 0.1 % (0-1); EOSINOPHILS % (AUTO) 0.1 % (0-6); HEMATOCRIT 22.1 % (42.0-52.0); HEMOGLOBIN 7.6 g/dl (14.0-17.9); LYMPHOCYTES # (AUTO) 0.2 X10'3 (1.1-4.8); MEAN CORPUSCULAR HEMOGLOBIN 32.7 PG (27.0-31.0); MEAN CORPUSCULAR HGB CONC 34.3 g/dL (33.0-36.5); MEAN CORPUSCULAR VOLUME 95.4 FL (78-98); MEAN PLATELET VOLUME 7.3 FL (7.4-10.4); MONOCYTES # (AUTO) 0.3 X10'3 (0-0.9); MONOCYTES % (AUTO) 3.2 % (2-12); NEUTROPHILS # (AUTO) 7.6 X10'3 (1.8-7.7); NEUTROPHILS % (AUTO) 93.6 % (42-75); PLATELET COUNT 214 X10'3 (140-440); RED BLOOD COUNT 2.32 X10'6 (4.70-6.10); WHITE BLOOD COUNT 8.2 X10'3 (4.5-11.0)
[2021-10-21 03:26] LABS: ABG HCO3 34.8 mmol/L (22.0-26.0); ABG OXYGEN SATURATION 99.5 % (94-97); ABG PCO2 (T) 65.6 mmHg (35.0-48.0); ABG PO2 (T) 223.2 mmHg (75.0-100.0); FCOHb 0.9 % (0.0-3.9); FMetHb 0.1 % (0.0-1.5); FO2Hb 98.5 % (94-97); PATIENT TEMPERATURE 37.3; PEEP 18 cm H2O; RESPIRATORY RATE 30 b/min; TIDAL VOLUME 350 mL
[2021-10-21 03:31] LABS: ALANINE AMINOTRANSFERASE 141 U/L (12-78); ALBUMIN 2.2 G/DL (3.4-5.0); ALBUMIN/GLOBULIN RATIO 0.6 (1.1-1.5); ALKALINE PHOSPHATASE 293 IU/L (46-116); ANION GAP 6 (8-16); ASPARTATE AMINO TRANSFERASE 85 U/L (10-37); BILIRUBIN,TOTAL 0.8 MG/DL (0.1-1.0); BLOOD UREA NITROGEN 28 MG/DL (7-18); BUN/CREATININE RATIO 43.1 (5.4-32.0); CALCIUM 8.1 MG/DL (8.5-10.1); CHLORIDE 108 MMOL/L (99-107); CREATININE 0.65 MG/DL (0.60-1.10); GLUCOSE 109 MG/DL (70-104); POTASSIUM 4.6 MMOL/L (3.5-5.1); SODIUM 148 MMOL/L (135-145); TOTAL CARBON DIOXIDE 33.6 MMOL/L (24-32); TOTAL PROTEIN 6.1 G/DL (6.4-8.2); eGFR > 90 ML/MIN
[2021-10-21] MEDS: fentaNYL/PF inj 2,500 MCG in normal saline 250ml IV soln 200 ML IV PRN ×2 (05:21→23:04)
[2021-10-21] MEDS: amiodarone/D5 360MG/200ML BAG 200 ML IV SCH ×3 (06:16→18:24)
[2021-10-21] MEDS: VANCOmycin 1250MG/NS 250ml Bag 250 ML IV SCH ×2 (07:04→17:36)
[2021-10-21 07:23] LABS: ABG BASE EXCESS 7.5 mmol/L (-2.0-2.0); ABG HCO3 34.5 mmol/L (22.0-26.0); ABG OXYGEN SATURATION 97.8 % (94-97); ABG PCO2 (T) 64.6 mmHg (35.0-48.0); ABG PO2 (T) 109.6 mmHg (75.0-100.0); FCOHb 0.6 % (0.0-3.9); FMetHb 0.4 % (0.0-1.5); FO2Hb 96.8 % (94-97); PATIENT TEMPERATURE 36.7; PEEP 16 cm H2O; RESPIRATORY RATE 30 b/min; TIDAL VOLUME 350 mL; TOTAL HEMOGLOBIN 8.4 G/dl (14.0-18.0)
[2021-10-21] MEDS: K, MAG and/or Phos replacement - Verify level? MC SCH (08:00)
[2021-10-21] MEDS: lansoprazole 15mg solutab NG SCH (08:00)
[2021-10-21] MEDS: atorvastatin 20mg tablet NG SCH (08:46)
[2021-10-21] MEDS: sennosides/docusate sodium tablet NG SCH ×2 (08:46→20:17)
[2021-10-21] MEDS: lactobacillus rhamnosus 10,000 MMU CELLS/CAPSULE NG SCH ×2 (08:46→20:17)
[2021-10-21] MEDS: polyethylene glycol 3350 17gm powd pack NG SCH (08:46)
[2021-10-21] MEDS: methylPREDNISolone sod succ/PF 40mg inj. IV SCH (08:47)
[2021-10-21] MEDS ORDERED: hydrALAZINE 20mg/ml inj. IV ONE (10:53)
[2021-10-21] MEDS ORDERED: acetaminophen 325mg tablet OGT PRN (12:35)
[2021-10-21] MEDS: insulin regular, human U-100 3ml vial - multi-dose SQ SCH ×2 (14:41→20:19)
[2021-10-21] MEDS ORDERED: VANCOMYCIN LEVEL IV ONE (17:30)
--- NOTE | 2021-10-21 18:30 | NUR ---
Patient in room CICU 2010. I have received report from Mine HARTMANN and had the opportunity to ask questions and assume patient care.
[2021-10-22] VITALS (24 sets, daily range): BP systolic 138–158; BP diastolic 64–86
[2021-10-22] MEDS: amiodarone/D5 360MG/200ML BAG 200 ML IV SCH ×4 (00:28→17:38)
[2021-10-22] MEDS: insulin regular, human U-100 3ml vial - multi-dose SQ SCH ×2 (02:18→09:24)
[2021-10-22 03:09] LABS: ABG HCO3 38.4 mmol/L (22.0-26.0); ABG OXYGEN SATURATION 92.7 % (94-97); ABG PCO2 (T) 94.2 mmHg (35.0-48.0); ABG PO2 (T) 72.3 mmHg (75.0-100.0); FCOHb 1.1 % (0.0-3.9); FMetHb 0.2 % (0.0-1.5); FO2Hb 91.5 % (94-97); PEEP 16 cm H2O; RESPIRATORY RATE 30 b/min; TIDAL VOLUME 350 mL; TOTAL HEMOGLOBIN 8.3 G/dl (14.0-18.0)
[2021-10-22] MEDS: dextrose 5%-water 1,000 ML IV SCH ×2 (03:25→15:55)
[2021-10-22 03:59] LABS: BASOPHILS % (AUTO) 0.2 % (0-1); EOSINOPHILS # (AUTO) 0.1 X10'3 (0-0.9); EOSINOPHILS % (AUTO) 0.6 % (0-6); HEMATOCRIT 23.5 % (42.0-52.0); HEMOGLOBIN 7.6 g/dl (14.0-17.9); LYMPHOCYTES # (AUTO) 0.2 X10'3 (1.1-4.8); LYMPHOCYTES % (AUTO) 2.4 % (21-51); MEAN CORPUSCULAR HEMOGLOBIN 31.9 PG (27.0-31.0); MEAN CORPUSCULAR HGB CONC 32.5 g/dL (33.0-36.5); MEAN CORPUSCULAR VOLUME 98.2 FL (78-98); MEAN PLATELET VOLUME 7.5 FL (7.4-10.4); MONOCYTES # (AUTO) 0.4 X10'3 (0-0.9); MONOCYTES % (AUTO) 4.3 % (2-12); NEUTROPHILS # (AUTO) 8.4 X10'3 (1.8-7.7); NEUTROPHILS % (AUTO) 92.5 % (42-75); PLATELET COUNT 220 X10'3 (140-440); RED BLOOD COUNT 2.39 X10'6 (4.70-6.10); RED CELL DISTRIBUTION WIDTH 17.6 % (11.5-14.5); WHITE BLOOD COUNT 9.1 X10'3 (4.5-11.0)
[2021-10-22 04:04] LABS: ALANINE AMINOTRANSFERASE 116 U/L (12-78); ALBUMIN 2.1 G/DL (3.4-5.0); ALBUMIN/GLOBULIN RATIO 0.5 (1.1-1.5); ALKALINE PHOSPHATASE 255 IU/L (46-116); ANION GAP 1 (8-16); ASPARTATE AMINO TRANSFERASE 55 U/L (10-37); BILIRUBIN,TOTAL 0.6 MG/DL (0.1-1.0); BLOOD UREA NITROGEN 29 MG/DL (7-18); BUN/CREATININE RATIO 48.3 (5.4-32.0); CALCIUM 8.2 MG/DL (8.5-10.1); CHLORIDE 108 MMOL/L (99-107); GLUCOSE 155 MG/DL (70-104); POTASSIUM 4.5 MMOL/L (3.5-5.1); SODIUM 146 MMOL/L (135-145); TOTAL CARBON DIOXIDE 36.6 MMOL/L (24-32); TOTAL PROTEIN 6.1 G/DL (6.4-8.2); eGFR > 90 ML/MIN
[2021-10-22] MEDS: VANCOmycin 1250MG/NS 250ml Bag 250 ML IV SCH ×2 (05:38→17:37)
--- NOTE | 2021-10-22 06:06 | NUR ---
Problems reprioritized. Patient report given, questions answered & plan of care reviewed with Lorelei HARTMANN. Addendum: 10/22/21 at 0610 by Maria Richards RN Problems reprioritized. Patient report given, questions answered & plan of care reviewed with Mine HARTMANN.
[2021-10-22] MEDS: K, MAG and/or Phos replacement - Verify level? MC SCH (08:00)
[2021-10-22] MEDS: methylPREDNISolone sod succ/PF 40mg inj. IV SCH ×2 (09:06→19:18)
[2021-10-22] MEDS: piperacillin/tazo 3.375gm/50ml 50 ML IV SCH ×3 (09:07→23:10)
[2021-10-22] MEDS: sennosides/docusate sodium tablet NG SCH ×2 (09:07→19:18)
[2021-10-22] MEDS: polyethylene glycol 3350 17gm powd pack NG SCH (09:07)
[2021-10-22] MEDS: lansoprazole 15mg solutab NG SCH (09:07)
[2021-10-22] MEDS: atorvastatin 20mg tablet NG SCH (09:07)
[2021-10-22] MEDS: lactobacillus rhamnosus 10,000 MMU CELLS/CAPSULE NG SCH ×2 (09:09→19:18)
[2021-10-22] MEDS: midazolam 100mg in NS 100ml 100 ML IV PRN ×2 (10:22→18:40)
[2021-10-22] MEDS ORDERED: amiodarone 150mg/dext, iso-os 100 ML IV ONE ×2 (12:03→12:15)
[2021-10-22] MEDS ORDERED: amiodarone/D5 360MG/200ML BAG 200 ML IV ONE (12:04)
[2021-10-23] VITALS (24 sets, daily range): BP systolic 124–166; BP diastolic 59–85
[2021-10-23] MEDS: amiodarone/D5 360MG/200ML BAG 200 ML IV SCH ×4 (00:15→18:15)
--- NOTE | 2021-10-23 00:47 | NUR ---
61 yo male, DNR, admitted 09/26/2021, day 27 of hospitalization, NDA. No isolation, no restraints. Pt was transferred from a community hospital to [facility] for a higher level of care. Pt was was admitted/ transferred with COVID PNA and ARDS. Currently, pt is sedated on fentanyl at 20 mcgs, Versed at 11 mg. Pt was made a DNR today and possibly being placed on comfort care or or possibly a Donor network case. That decision will be made in the AM. Mayank from [employer] called to follow up on the case. I informed him of the possibility of the families decision tomorrow. He will follow up tomorrow. Pupils sluggish. HR 98 SR BP 157/78, per A-LINE. weak pulses, +3 pitting edema. On day shift, Pt had an episode of rapid AFIB, was placed on Amiodarone gtt, currently infusing at .5mg. All IVF's infusing via CASE TL PICC Line, all ports f/p, good blood return, dressing clean dry intact. Remains intubated with 8.0 ETT 23 cm. VENT: AC/PRVC, rate 30, TV 372, FIO2 100%, PEEP 18 saturation 90%. Coarse diminished breath sounds. Equal symmetrical non labored. Hypoactive bowel sounds, abdomen round, soft non distended. Tube feeding, Vital AF, infusing at 85 ml/ hor with H20 flushes at 200 mls hour. No residual noted. Glucose check Q 6 hours. Bladder non distended. Michelle draining deni/ yellow clear to cloudy urine. Pt has multiple skin issues, turn Q 2 hours as tolerated. Remains on Vancomycin and Zosyn. Pt remains safe. Continue to monitor.
[2021-10-23] MEDS: fentaNYL/PF inj 2,500 MCG in normal saline 250ml IV soln 200 ML IV PRN ×2 (01:28→14:43)
[2021-10-23] MEDS: insulin regular, human U-100 3ml vial - multi-dose SQ SCH ×3 (02:08→14:27)
[2021-10-23 03:12] LABS: BASOPHILS % (AUTO) 0.1 % (0-1); EOSINOPHILS % (AUTO) 0.2 % (0-6); HEMATOCRIT 22.7 % (42.0-52.0); HEMOGLOBIN 7.4 g/dl (14.0-17.9); LYMPHOCYTES # (AUTO) 0.1 X10'3 (1.1-4.8); LYMPHOCYTES % (AUTO) 1.7 % (21-51); MEAN CORPUSCULAR HEMOGLOBIN 32.2 PG (27.0-31.0); MEAN CORPUSCULAR HGB CONC 32.5 g/dL (33.0-36.5); MEAN CORPUSCULAR VOLUME 99.1 FL (78-98); MEAN PLATELET VOLUME 7.7 FL (7.4-10.4); MONOCYTES # (AUTO) 0.3 X10'3 (0-0.9); MONOCYTES % (AUTO) 3.3 % (2-12); NEUTROPHILS # (AUTO) 8.1 X10'3 (1.8-7.7); NEUTROPHILS % (AUTO) 94.7 % (42-75); PLATELET COUNT 203 X10'3 (140-440); RED BLOOD COUNT 2.29 X10'6 (4.70-6.10); RED CELL DISTRIBUTION WIDTH 17.8 % (11.5-14.5); WHITE BLOOD COUNT 8.6 X10'3 (4.5-11.0)
[2021-10-23 03:48] LABS: ALANINE AMINOTRANSFERASE 93 U/L (12-78); ALBUMIN/GLOBULIN RATIO 0.5 (1.1-1.5); ALKALINE PHOSPHATASE 215 IU/L (46-116); ANION GAP 1 (8-16); ASPARTATE AMINO TRANSFERASE 48 U/L (10-37); BILIRUBIN,TOTAL 0.6 MG/DL (0.1-1.0); BLOOD UREA NITROGEN 27 MG/DL (7-18); BUN/CREATININE RATIO 45.8 (5.4-32.0); CALCIUM 8.2 MG/DL (8.5-10.1); CHLORIDE 108 MMOL/L (99-107); CREATININE 0.59 MG/DL (0.60-1.10); GLUCOSE 212 MG/DL (70-104); POTASSIUM 4.9 MMOL/L (3.5-5.1); SODIUM 147 MMOL/L (135-145); TOTAL CARBON DIOXIDE 37.6 MMOL/L (24-32); eGFR > 90 ML/MIN
[2021-10-23 04:05] LABS: ABG BASE EXCESS 11.6 mmol/L (-2.0-2.0); ABG OXYGEN SATURATION 95.3 % (94-97); ABG PCO2 (T) 96.9 mmHg (35.0-48.0); ABG PO2 (T) 85.2 mmHg (75.0-100.0); ALLEN'S TEST POSITIVE; FCOHb 1.3 % (0.0-3.9); FMetHb 0.3 % (0.0-1.5); FO2Hb 93.8 % (94-97); PEEP 18 cm H2O; RESPIRATORY RATE 30 b/min; TIDAL VOLUME 350 mL; TOTAL HEMOGLOBIN 8.4 G/dl (14.0-18.0)
[2021-10-23] MEDS: dextrose 5%-water 1,000 ML IV SCH ×2 (04:16→16:55)
[2021-10-23] MEDS: midazolam 100mg in NS 100ml 100 ML IV PRN ×3 (04:17→19:40)
[2021-10-23] MEDS: VANCOmycin 1250MG/NS 250ml Bag 250 ML IV SCH ×2 (05:06→17:55)
[2021-10-23] MEDS: K, MAG and/or Phos replacement - Verify level? MC SCH (08:00)
[2021-10-23] MEDS: atorvastatin 20mg tablet NG SCH (08:33)
[2021-10-23] MEDS: lansoprazole 15mg solutab NG SCH (08:34)
[2021-10-23] MEDS: methylPREDNISolone sod succ/PF 40mg inj. IV SCH ×2 (08:34→19:32)
[2021-10-23] MEDS: polyethylene glycol 3350 17gm powd pack NG SCH (08:34)
[2021-10-23] MEDS: piperacillin/tazo 3.375gm/50ml 50 ML IV SCH ×2 (08:34→16:47)
[2021-10-23] MEDS: lactobacillus rhamnosus 10,000 MMU CELLS/CAPSULE NG SCH ×2 (08:34→19:32)
[2021-10-23] MEDS: sennosides/docusate sodium tablet NG SCH ×2 (08:37→19:32)
[2021-10-23 12:00] LABS: BASOPHILS % (AUTO) 0.2 % (0-1); EOSINOPHILS % (AUTO) 0.5 % (0-6); HEMATOCRIT 23.4 % (42.0-52.0); HEMOGLOBIN 7.7 g/dl (14.0-17.9); LYMPHOCYTES # (AUTO) 0.1 X10'3 (1.1-4.8); LYMPHOCYTES % (AUTO) 1.5 % (21-51); MEAN CORPUSCULAR HEMOGLOBIN 32.7 PG (27.0-31.0); MEAN PLATELET VOLUME 7.4 FL (7.4-10.4); MONOCYTES # (AUTO) 0.4 X10'3 (0-0.9); MONOCYTES % (AUTO) 4.6 % (2-12); NEUTROPHILS # (AUTO) 8.8 X10'3 (1.8-7.7); NEUTROPHILS % (AUTO) 93.2 % (42-75); PLATELET COUNT 214 X10'3 (140-440); RED BLOOD COUNT 2.36 X10'6 (4.70-6.10); RED CELL DISTRIBUTION WIDTH 17.6 % (11.5-14.5); WHITE BLOOD COUNT 9.4 X10'3 (4.5-11.0)
[2021-10-23 12:06] LABS: CLARITY,URINE CLOUDY (Clear); COLOR,URINE YELLOW (Yellow); GLUCOSE, URINE NEGATIVE (Neg); KETONES,URINE NEGATIVE (Neg); PROTEIN,URINE 30 mg/dl (Neg); UA COLLECTION TYPE NON-SPECIFIED
[2021-10-23 12:07] LABS: LEUKOCYTE ESTERASE ,URINE NEGATIVE (Neg); NITRITES, URINE NEGATIVE (Neg); OCCULT BLOOD,URINE LARGE (Neg)
[2021-10-23 12:11] LABS: ALANINE AMINOTRANSFERASE 87 U/L (12-78); ALBUMIN/GLOBULIN RATIO 0.5 (1.1-1.5); ALKALINE PHOSPHATASE 209 IU/L (46-116); ANION GAP 0 (8-16); ASPARTATE AMINO TRANSFERASE 49 U/L (10-37); BILIRUBIN,TOTAL 0.6 MG/DL (0.1-1.0); BLOOD UREA NITROGEN 27 MG/DL (7-18); BUN/CREATININE RATIO 46.6 (5.4-32.0); CALCIUM 8.5 MG/DL (8.5-10.1); CHLORIDE 110 MMOL/L (99-107); CREATININE 0.58 MG/DL (0.60-1.10); GLUCOSE 165 MG/DL (70-104); POTASSIUM 4.8 MMOL/L (3.5-5.1); SODIUM 150 MMOL/L (135-145); TOTAL CARBON DIOXIDE 39.6 MMOL/L (24-32); TOTAL PROTEIN 6.2 G/DL (6.4-8.2); eGFR > 90 ML/MIN
[2021-10-23 12:20] LABS: COARSE GRANULAR CAST 0-3 /LPF (NEGATIVE); FINE GRANULAR CAST 0-3 /LPF (NEGATIVE); MUCUS STRANDS MODERATE /LPF (Neg); SQUAMOUS EPITHELIAL CELL,UR FEW /LPF (FEW)
[2021-10-23 12:21] LABS: BACTERIA,URINE 1+ /HPF (Neg); WBC,URINE 0-4 /HPF (0-4)
[2021-10-23 21:06] LABS: ALANINE AMINOTRANSFERASE 79 U/L (12-78); ALBUMIN 1.9 G/DL (3.4-5.0); ALBUMIN/GLOBULIN RATIO 0.5 (1.1-1.5); ALKALINE PHOSPHATASE 185 IU/L (46-116); ANION GAP 0 (8-16); ASPARTATE AMINO TRANSFERASE 39 U/L (10-37); BILIRUBIN,DIRECT 0.2 MG/DL (0-0.3); BILIRUBIN,TOTAL 0.5 MG/DL (0.1-1.0); BLOOD UREA NITROGEN 27 MG/DL (7-18); BUN/CREATININE RATIO 47.4 (5.4-32.0); CALCIUM 8.4 MG/DL (8.5-10.1); CHLORIDE 109 MMOL/L (99-107); CREATININE 0.57 MG/DL (0.60-1.10); GLUCOSE 105 MG/DL (70-104); MAGNESIUM 2.5 MG/DL (1.5-2.4); POTASSIUM 4.9 MMOL/L (3.5-5.1); SODIUM 150 MMOL/L (135-145); TOTAL PROTEIN 5.9 G/DL (6.4-8.2); eGFR > 90 ML/MIN
[2021-10-23 21:09] LABS: TOTAL CARBON DIOXIDE 41.2 MMOL/L (24-32)
[2021-10-24] VITALS (10 sets, daily range): BP systolic 125–142; BP diastolic 71–83
[2021-10-24] MEDS: piperacillin/tazo 3.375gm/50ml 50 ML IV SCH ×2 (00:13→08:23)
[2021-10-24] MEDS: amiodarone/D5 360MG/200ML BAG 200 ML IV SCH ×2 (00:14→04:44)
[2021-10-24 02:30] LABS: ABG BASE EXCESS 12.6 mmol/L (-2.0-2.0); ABG HCO3 41.2 mmol/L (22.0-26.0); ABG OXYGEN SATURATION 84.6 % (94-97); ABG PCO2 (T) 93.3 mmHg (35.0-48.0); ABG PO2 (T) 52.9 mmHg (75.0-100.0); FCOHb 1.4 % (0.0-3.9); FMetHb 0.3 % (0.0-1.5); FO2Hb 83.2 % (94-97); PATIENT TEMPERATURE 37.8; PEEP 16 cm H2O; RESPIRATORY RATE 30 b/min; TIDAL VOLUME 350 mL; TOTAL HEMOGLOBIN 7.8 G/dl (14.0-18.0)
[2021-10-24] MEDS: midazolam 100mg in NS 100ml 100 ML IV PRN ×2 (03:05→10:33)
[2021-10-24 03:20] LABS: BASOPHILS % (AUTO) 0.1 % (0-1); EOSINOPHILS % (AUTO) 0 % (0-6); HEMOGLOBIN 7.1 g/dl (14.0-17.9); LYMPHOCYTES # (AUTO) 0.2 X10'3 (1.1-4.8); LYMPHOCYTES % (AUTO) 2.9 % (21-51); MEAN CORPUSCULAR HEMOGLOBIN 32.5 PG (27.0-31.0); MEAN CORPUSCULAR HGB CONC 32.8 g/dL (33.0-36.5); MEAN CORPUSCULAR VOLUME 99.3 FL (78-98); MEAN PLATELET VOLUME 7.6 FL (7.4-10.4); MONOCYTES # (AUTO) 0.3 X10'3 (0-0.9); NEUTROPHILS # (AUTO) 6.9 X10'3 (1.8-7.7); PLATELET COUNT 218 X10'3 (140-440); RED BLOOD COUNT 2.17 X10'6 (4.70-6.10); RED CELL DISTRIBUTION WIDTH 17.7 % (11.5-14.5); WHITE BLOOD COUNT 7.4 X10'3 (4.5-11.0)
[2021-10-24 03:25] LABS: ALANINE AMINOTRANSFERASE 73 U/L (12-78); ALBUMIN 1.9 G/DL (3.4-5.0); ALBUMIN/GLOBULIN RATIO 0.5 (1.1-1.5); ALKALINE PHOSPHATASE 193 IU/L (46-116); ANION GAP -2 (8-16); ASPARTATE AMINO TRANSFERASE 43 U/L (10-37); BILIRUBIN,TOTAL 0.6 MG/DL (0.1-1.0); BLOOD UREA NITROGEN 28 MG/DL (7-18); BUN/CREATININE RATIO 49.1 (5.4-32.0); CALCIUM 8.6 MG/DL (8.5-10.1); CHLORIDE 111 MMOL/L (99-107); CREATININE 0.57 MG/DL (0.60-1.10); GLUCOSE 142 MG/DL (70-104); MAGNESIUM 2.3 MG/DL (1.5-2.4); SODIUM 151 MMOL/L (135-145); TOTAL PROTEIN 5.9 G/DL (6.4-8.2); eGFR > 90 ML/MIN
[2021-10-24 03:29] LABS: TOTAL CARBON DIOXIDE 41.7 MMOL/L (24-32)
[2021-10-24 03:35] LABS: HEMATOCRIT 21.6 % (42.0-52.0)
[2021-10-24 04:43] LABS: ANISOCYTOSIS 1+; NUCLEATED RED BLOOD CELLS 1 /100WBC (0-0); PLATELET ESTIMATE NORMAL; TOTAL CELLS COUNTED 100
[2021-10-24 04:44] LABS: STOMATOCYTES 1+
[2021-10-24] MEDS: dextrose 5%-water 1,000 ML IV SCH (04:44)
--- NOTE | 2021-10-24 04:56 | NUR ---
61 yo male, DNR, admitted 09/26/2021, day 28 of hospitalization, NDA. No isolation, no restraints. Pt was transferred from a community hospital to [facility] for a higher level of care. Pt was was admitted/ transferred with COVID PNA and ARDS. Currently, pt is sedated on fentanyl at 200 mcgs, Versed at 13 mg. pt is pending surgery with Donor network at 1300 10/24/2021. Pupils sluggish. HR 98 SR BP 157/78, per A-LINE Rt groin f/p good blood return. Weak pulses, +3 pitting edema. Pt remains on Amiodarone gtt, currently infusing at .5mg. All IVF's infusing via CASE TL PICC Line, all ports f/p, good blood return, dressing clean dry intact. During AM care pt became grossly unstable desatted to 52% and remained there for a significant amount of time. Finally recovered to 85% and remained there for the remainder of the shift, Pt had been 96% prior to bath. Remains intubated with 8.0 ETT 23 cm. VENT: AC/PRVC, rate 30, TV 350, FIO2 100%, PEEP 16. Coarse diminished breath sounds. Equal symmetrical non labored. Hypoactive bowel sounds, abdomen round, soft non distended. Glucose check Q 6 hours. D5W started infusing at 80 ml's hour Bladder non distended. Michelle draining deni/ yellow, sediment, cloudy urine. Pt has multiple skin issues, turn Q 2 hours as tolerated. Remains on Vancomycin and Zosyn. Pt remains safe. Continue to monitor. Donor net work present on unit for preparations for the procedure.
[2021-10-24] MEDS: VANCOmycin 1250MG/NS 250ml Bag 250 ML IV SCH (05:33)
[2021-10-24 06:02] LABS: CLARITY,URINE CLEAR (Clear); COLOR,URINE YELLOW (Yellow); GLUCOSE, URINE NEGATIVE (Neg); KETONES,URINE NEGATIVE (Neg); PROTEIN,URINE TRACE mg/dl (Neg); UA COLLECTION TYPE NON-SPECIFIED
[2021-10-24 06:03] LABS: LEUKOCYTE ESTERASE ,URINE NEGATIVE (Neg); NITRITES, URINE NEGATIVE (Neg); OCCULT BLOOD,URINE SMALL (Neg); UROBILINOGEN,URINE 0.2 E.U/dL (0.2-1.0)
[2021-10-24 06:08] LABS: RBC,URINE 20-50 /HPF (0-2)
[2021-10-24 06:09] LABS: BACTERIA,URINE FEW /HPF (Neg); SQUAMOUS EPITHELIAL CELL,UR FEW /LPF (FEW)
[2021-10-24 06:10] LABS: COARSE GRANULAR CAST 0-3 /LPF (NEGATIVE); FINE GRANULAR CAST 0-3 /LPF (NEGATIVE); MUCUS STRANDS NONE SEEN /LPF (Neg)
--- NOTE | 2021-10-24 06:30 | NUR ---
Patient in room CICU 2011. I have received report from rigo and had the opportunity to ask questions and assume patient care.
[2021-10-24] MEDS: K, MAG and/or Phos replacement - Verify level? MC SCH (08:00)
[2021-10-24] MEDS: atorvastatin 20mg tablet NG SCH (08:23)
[2021-10-24] MEDS: sennosides/docusate sodium tablet NG SCH (08:23)
[2021-10-24] MEDS: methylPREDNISolone sod succ/PF 40mg inj. IV SCH (08:23)
[2021-10-24] MEDS: lactobacillus rhamnosus 10,000 MMU CELLS/CAPSULE NG SCH (08:23)
[2021-10-24] MEDS: polyethylene glycol 3350 17gm powd pack NG SCH (08:27)
[2021-10-24] MEDS ORDERED: FENTANYL-0.9 % NACL/PF 100 ML IV SCH (08:45)
[2021-10-24 10:40] LABS: LYMPHOCYTES # (AUTO) 0.3 X10'3 (1.1-4.8); NEUTROPHILS # (AUTO) 6.4 X10'3 (1.8-7.7); WHITE BLOOD COUNT 7.1 X10'3 (4.5-11.0)
[2021-10-24] MEDS ORDERED: heparin 10,000 units/1 ML INJ IV ONE (10:40)
[2021-10-24 10:41] LABS: BASOPHILS % (AUTO) 0.1 % (0-1); EOSINOPHILS % (AUTO) 0.3 % (0-6); LYMPHOCYTES % (AUTO) 4.2 % (21-51); MEAN CORPUSCULAR HEMOGLOBIN 32.3 PG (27.0-31.0); MEAN CORPUSCULAR HGB CONC 32.5 g/dL (33.0-36.5); MEAN CORPUSCULAR VOLUME 99.4 FL (78-98); MEAN PLATELET VOLUME 7.4 FL (7.4-10.4); MONOCYTES # (AUTO) 0.4 X10'3 (0-0.9); MONOCYTES % (AUTO) 5.4 % (2-12); PLATELET COUNT 231 X10'3 (140-440); RED BLOOD COUNT 2.06 X10'6 (4.70-6.10); RED CELL DISTRIBUTION WIDTH 18.1 % (11.5-14.5)
[2021-10-24 10:46] LABS: HEMATOCRIT 20.5 % (42.0-52.0); HEMOGLOBIN 6.7 g/dl (14.0-17.9)
[2021-10-24 10:49] LABS: PARTIAL THROMBOPLASTIN TIME 22 SECONDS (22-32)
[2021-10-24 10:50] LABS: COLOR,URINE YELLOW (Yellow); GLUCOSE, URINE NEGATIVE (Neg); KETONES,URINE NEGATIVE (Neg); LEUKOCYTE ESTERASE ,URINE NEGATIVE (Neg); NITRITES, URINE NEGATIVE (Neg); OCCULT BLOOD,URINE LARGE (Neg); PROTEIN,URINE TRACE mg/dl (Neg); UROBILINOGEN,URINE 0.2 E.U/dL (0.2-1.0)
[2021-10-24 10:55] LABS: UA COLLECTION TYPE NON-SPECIFIED
[2021-10-24 10:59] LABS: COARSE GRANULAR CAST 0-3 /LPF (NEGATIVE); FINE GRANULAR CAST 0-3 /LPF (NEGATIVE); HYALINE CASTS 0-3 /LPF (NEGATIVE); WBC,URINE NONE SEEN /HPF (0-4)
[2021-10-24 11:00] LABS: BACTERIA,URINE FEW /HPF (Neg); SQUAMOUS EPITHELIAL CELL,UR FEW /LPF (FEW)
--- NOTE | 2021-10-24 11:00 | NUR ---
pt with decreased sats intermittently from 83 consistent to 76. sx thick webb red with plug- lavaged. donor and md aware. tv changed, peep to 18, fentanyl and versed boluses for inc rr to 40- then down to 31. labs sent. time for comfort care changed- called and here at bs. pt without response, except for tachypnea.
[2021-10-24 11:02] LABS: CLARITY,URINE CLEAR (Clear)
[2021-10-24 11:15] LABS: ALANINE AMINOTRANSFERASE 73 U/L (12-78); ALBUMIN 1.9 G/DL (3.4-5.0); ALBUMIN/GLOBULIN RATIO 0.5 (1.1-1.5); ALKALINE PHOSPHATASE 183 IU/L (46-116); ASPARTATE AMINO TRANSFERASE 44 U/L (10-37); BILIRUBIN,DIRECT 0.2 MG/DL (0-0.3); BILIRUBIN,TOTAL 0.6 MG/DL (0.1-1.0); TOTAL PROTEIN 5.8 G/DL (6.4-8.2)
[2021-10-24 11:17] LABS: ALANINE AMINOTRANSFERASE 70 U/L (12-78); ALBUMIN 1.8 G/DL (3.4-5.0); ALBUMIN/GLOBULIN RATIO 0.5 (1.1-1.5); ALKALINE PHOSPHATASE 176 IU/L (46-116); ANION GAP 0 (8-16); ASPARTATE AMINO TRANSFERASE 43 U/L (10-37); BILIRUBIN,TOTAL 0.6 MG/DL (0.1-1.0); BLOOD UREA NITROGEN 24 MG/DL (7-18); BUN/CREATININE RATIO 41.4 (5.4-32.0); CALCIUM 8.4 MG/DL (8.5-10.1); CHLORIDE 108 MMOL/L (99-107); CREATININE 0.58 MG/DL (0.60-1.10); GLUCOSE 141 MG/DL (70-104); MAGNESIUM 2.3 MG/DL (1.5-2.4); PHOSPHORUS 2.3 MG/DL (2.3-4.5); POTASSIUM 4.5 MMOL/L (3.5-5.1); SODIUM 148 MMOL/L (135-145); TOTAL PROTEIN 5.7 G/DL (6.4-8.2); eGFR > 90 ML/MIN
[2021-10-24 11:22] LABS: TOTAL CARBON DIOXIDE 40.1 MMOL/L (24-32)
[2021-10-24] MEDS ORDERED: morphine 4 MG/ML inj SYRINge IV PRN (11:50)
[2021-10-24 12:11] LABS: NUCLEATED RED BLOOD CELLS 1 /100WBC (0-0); PLATELET ESTIMATE NORMAL; TOTAL CELLS COUNTED 100
[2021-10-24 12:12] LABS: ANISOCYTOSIS 1+
--- NOTE | 2021-10-24 12:38 | NUR ---
pt extubated at 1234- at 1238. at bs. pt pronounced by ashia lane n.p
== END 2021-10-24 16:16 | DRG 207 ==
LOC: UNDOADMIN 16:15 → CICU 2S 16:15
PROVIDERS: ADMIT Surgery Surgical Critical Care
PROC: 5A1955Z Respiratory Ventilation, Greater than 96 Consecutive Hours (ICD-10-PCS; principal; 2021-09-26)
PROC: 0BH17EZ Insertion of Endotracheal Airway into Trachea, Via Natural or Artificial Opening (ICD-10-PCS; 2021-09-26)
PROC: XW033E5 Introduction of Remdesivir Anti-infective into Peripheral Vein, Percutaneous Approach, New Technology Group 5 (ICD-10-PCS; 2021-09-27)
PROC: 02HV33Z Insertion of Infusion Device into Superior Vena Cava, Percutaneous Approach (ICD-10-PCS; 2021-09-27)
PROC: B548ZZA Ultrasonography of Superior Vena Cava, Guidance (ICD-10-PCS; 2021-09-27)
PROC: 30233N1 Transfusion of Nonautologous Red Blood Cells into Peripheral Vein, Percutaneous Approach (ICD-10-PCS; 2021-10-20)
DX: U07.1 COVID-19 (principal); J80 Acute respiratory distress syndrome; J12.82 Pneumonia due to coronavirus disease 2019; A41.1 Sepsis due to other specified staphylococcus; K81.0 Acute cholecystitis; N17.9 Acute kidney failure, unspecified; J93.9 Pneumothorax, unspecified; E87.0 Hyperosmolality and hypernatremia; T79.7XXA Traumatic subcutaneous emphysema, initial encounter; R04.89 Hemorrhage from other sites in respiratory passages; R74.01 Elevation of levels of liver transaminase levels; Z66 Do not resuscitate; E78.00 Pure hypercholesterolemia, unspecified; Z51.5 Encounter for palliative care; Z87.891 Personal history of nicotine dependence; Z79.899 Other long term (current) drug therapy; Z78.1 Physical restraint status
CPT/HCPCS: 36415; 36430; 36573; 36600; 70450; 71045; 71250; 74176; 76700; 80048; 80053; 80074; 80076; 80202; 81001; 82150; 82248; 82803; 82948; 83036; 83605; 83615; 83690; 83735; 84100; 84134; 84145; 85007; 85018; 85025; 85379; 85384; 85610; 85730; 86140; 86703; 86885; 86900; 86901; 86920; 87040; 87070; 87077; 87088; 87186; 87635; 94002; 94003; 94760; 94799; C9113; G0378; J0360; J1100; J1644; J1650; J1815; J1940; J2212; J2543; J2920; J2930; J3010; J3370; J3480; J3490; J7030; J7040; J7050; J7070; P9016; P9045